=== PATIENT | male | born 1970 | race Hispanic/Latino ===

== ENCOUNTER 2017-02-19 03:59 | Inpatient (IN) | payer BC ==
[2017-02-19 04:00] VITALS: BMI 25.0
--- NOTE | 2017-02-19 05:02 | ED PDOC ---
Arrival/HPI - General Chief Complaint: Psychiatric Evaluation Time Seen by Provider: 02/19/17 04:07 Historian: Patient - History of Present Illness Narrative History of Present Illness (Text): 02/19/17 04:46 Shawn Vega is a 46 year old male, whose past medical history includes hypertension and depression, who presents to the Emergency department brought in by EMS for auditory hallucinations. Patient states for the past 3 weeks he thinks his neighbors have been trying to break in to his apartment. Patient believes this is happening only when he is in the apartment by himself. Patient with tangential thoughts and paranoid behavior. Patient denies any suicidal ideation, homicidal ideation, fever, chills, chest pain, shortness of breath, nausea, vomiting, diarrhea, urinary symptoms, back pain, neck pain, headache, dizziness, or any other complaints. Time/Duration: < month (3 weeks) Symptom Onset: Gradual Symptom Course: Unchanged Activities at Onset: Rest, Light Context: Home Past Medical History - Provider Review Nursing Documentation Reviewed: Yes - Infectious Disease Hx of Infectious Diseases: None - Tetanus Immunization Tetanus Immunization: Up to Date - Past Medical History Past Medical History: No Previous - Cardiac Hx Cardiac Disorders: Yes Hx Hypertension: Yes - Pulmonary Hx Respiratory Disorders: No - Neurological Hx Neurological Disorder: No - HEENT Hx HEENT Disorder: No - Renal Hx Renal Disorder: No - Endocrine/Metabolic Hx Endocrine Disorders: No - Hematological/Oncological Hx Blood Disorders: No - Integumentary Hx Dermatological Disorder: No - Musculoskeletal/Rheumatological Hx Musculoskeletal Disorders: Yes Hx Back Pain: Yes Hx Herniated Disk: Yes (neck /lower back) - Gastrointestinal Hx Gastrointestinal Disorders: No - Genitourinary/Gynecological Hx Genitourinary Disorders: No - Psychiatric Hx Psychophysiologic Disorder: No Hx Anxiety: Yes Hx Depression: Yes Hx Substance Use: No (1 month ago) - Past Surgical History Past Surgical History: No Previous - Surgical History Other/Comment: umbilical hernia repair - Anesthesia Hx Anesthesia: Yes Hx Anesthesia Reactions: No Hx Malignant Hyperthermia: No - Suicidal Assessment Feels Threatened In Home Enviroment: No Family/Social History - Physician Review Nursing Documentation Reviewed: Yes Family/Social History: No Known Family HX Smoking Status: Light Smoker < 10 Cigarettes Daily Hx Alcohol Use: Yes Hx Substance Use: No (1 month ago) Substance used: medical marijuana Hx Substance Use Treatment: No Allergies/Home Meds Allergies/Adverse Reactions: Allergies No Known Allergies Allergy (Verified 02/19/17 04:15) Home Medications: Home Meds Medication Instructions Recorded Confirmed Gabapentin [Neurontin] 400 mg PO TID 02/03/16 07/09/16 Lisinopril [Zestril] 20 mg PO DAILY 02/03/16 07/09/16 Metoprolol Succinate [Toprol XL] 50 mg PO DAILY 02/03/16 07/09/16 Oxycodone HCl/Acetaminophen 1 tab PO QID PRN 02/03/16 02/03/16 [Percocet 10-325 mg Tablet] amLODIPine [Norvasc] 10 mg PO DAILY 02/03/16 07/09/16 tiZANidine [Zanaflex] 4 mg PO HS 02/03/16 02/03/16 Celecoxib [celeBREX] 200 mg PO DAILY 07/09/16 07/09/16 Esomeprazole Magnesium [Nexium] 40 mg PO DAILY 07/09/16 07/09/16 Metoclopramide HCl [Reglan] 5 mg PO ACBHS 07/09/16 07/09/16 Naloxegol Oxalate [Movantik] 25 mg PO DAILY 07/09/16 07/09/16 Oxymorphone HCl [Opana ER] 20 mg PO BID 07/09/16 07/09/16 Review of Systems - Physician Review All systems were reviewed & negative as marked: Yes - Review of Systems Constitutional: Normal. absent: Fevers Eyes: Normal ENT: Normal Respiratory: Normal. absent: SOB, Cough Cardiovascular: Normal. absent: Chest Pain Gastrointestinal: Normal. absent: Abdominal Pain, Diarrhea, Nausea, Vomiting Genitourinary Male: Normal. absent: Dysuria, Frequency, Hematuria, Urinary Output Changes Musculoskeletal: Normal. absent: Back Pain, Neck Pain Skin: Normal. absent: Rash Neurological: Normal. absent: Headache, Dizziness Endocrine: Normal Hemo/Lymphatic: Normal Psychiatric: Other (+paranoid) Physical Exam Vital Signs Reviewed: Yes Vital Signs Temp Pulse Resp BP Pulse Ox 02/19/17 04:15 98.3 F 83 18 155/107 H 99 Temperature: Afebrile Blood Pressure: Normal Pulse: Regular Respiratory Rate: Normal Appearance: Positive for: Well-Appearing, Non-Toxic, Comfortable Pain Distress: None Mental Status: Positive for: Alert and Oriented X 3 - Systems Exam Head: Present: Atraumatic, Normocephalic Pupils: Present: PERRL Extroacular Muscles: Present: EOMI Conjunctiva: Present: Normal Mouth: Present: Moist Mucous Membranes Neck: Present: Normal Range of Motion Respiratory/Chest: Present: Clear to Auscultation, Good Air Exchange. No: Respiratory Distress, Accessory Muscle Use Cardiovascular: Present: Regular Rate and Rhythm, Normal S1, S2. No: Murmurs Abdomen: Present: Normal Bowel Sounds. No: Tenderness, Distention, Peritoneal Signs Back: Present: Normal Inspection Upper Extremity: Present: Normal Inspection. No: Cyanosis, Edema Lower Extremity: Present: Normal Inspection. No: Edema Neurological: Present: GCS=15, CN II-XII Intact, Speech Normal Skin: Present: Warm, Dry, Normal Color. No: Rashes Psychiatric: Present: Alert, Oriented x 3, Normal Insight, Normal Concentration , Other (Tangential thoughts, paranoid) Medical Decision Making ED Course and Treatment: 02/19/17 04:46 Impression: 46 year old male complaining of auditory hallucinations for 3 weeks. Plan: -- EKG -- Chest X-ray -- Labs, alcohol level -- Urinalysis, urine drug screen -- Reassess and disposition Progress Notes: Reviewed EKG, NSR at 77 bpm. LAD. LVH. Non-specific ST changes. 02/19/17 05:22 Reviewed radiology, Chest X-ray shows no active disease. - Lab Interpretations Lab Results: 02/19/17 05:08 02/19/17 05:08 Lab Results 02/19/17 05:08: WBC 6.5 D, RBC 4.79, Hgb 14.0, Hct 41.9 L, MCV 87.5, MCH 29.2, MCHC 33.4, RDW 13.2, Plt Count 214, MPV 10.5, Gran % 75.5 H, Lymph % (Auto) 12.7 L, [place] % (Auto) 9.6 H, Eos % (Auto) 1.7, Baso % (Auto) 0.5, Gran # 4.89, Lymph # 0.8 L, [place] # 0.6, Eos # 0.1, Baso # 0.03, Sodium 146, Potassium 3.7, Chloride 105, Carbon Dioxide 29, Anion Gap 16, BUN 20, Creatinine 0.8, Est GFR ( Amer) > 60, Est GFR (Non-Af Amer) > 60, Random Glucose 97, Calcium 9.4, Total Bilirubin 0.5, AST 41, ALT 40, Alkaline Phosphatase 90, Total Protein 7.8 , Albumin 4.3, Globulin 3.5, Albumin/Globulin Ratio 1.2, Alcohol, Quantitative < 10 I have reviewed the lab results: Yes - RAD Interpretation Radiology Orders: 02/19/17 04:39 CHEST PORTABLE [RAD] Stat - EKG Interpretation Interpreted by ED Physician: Yes Type: 12 lead EKG - Transfer of Care Patient signed out to Dr:: Dung Pending Labs:: Labs/Medical clearance/PES evaluation/final disposition - Scribe Statement The provider has reviewed the documentation as recorded by the [place] Provider Attestation: All medical record entries made by the Mabelibbelen were at my direction and personally dictated by me. I have reviewed the chart and agree that the record accurately reflects my personal performance of the history, physical exam, medical decision making, and the department course for this patient. I have also personally directed, reviewed, and agree with the discharge instructions and disposition. Disposition/Present on Arrival - Present on Arrival Any Indicators Present on Arrival: No History of DVT/PE: No History of Uncontrolled Diabetes: No Urinary Catheter: No History of Decub. Ulcer: No History Surgical Site Infection Following: None - Disposition Have Diagnosis and Disposition been Completed?: No Diagnosis: Hallucinations Disposition Time: 07:00 Condition: STABLE
[2017-02-19 05:10] LABS: ADD MANUAL DIFF? NO
[2017-02-19 05:18] LABS: BASO # 0.03 K/mm3 (0.0-2.0); BASO % 0.5 % (0.0-3.0); EOS # 0.1 (0.0-0.7); EOS % 1.7 % (1.5-5.0); GRAN # 4.89 (1.4-6.5); GRAN % 75.5 % (50.0-68.0); HEMATOCRIT 41.9 % (42.0-52.0); LYMPH # 0.8 (1.2-3.4); LYMPH % 12.7 % (22.0-35.0); MEAN CELL VOLUME 87.5 fL (80.0-105.0); MEAN CORPUSCULAR HEMOGLOBIN 29.2 pg (25.0-35.0); MEAN CORPUSCULAR HGB CONC 33.4 g/dl (31.0-37.0); MEAN PLATELET VOLUME 10.5 fl (7.0-11.0); MONO # 0.6 (0.1-0.6); MONO % 9.6 % (1.0-6.0); PLATELET COUNT 214 10^3/uL (120.0-450.0); RED CELL DISTRIBUTION WIDTH 13.2 % (11.5-14.5); WHITE BLOOD COUNT 6.5 10^3/ul (4.5-11.0)
[2017-02-19 05:35] LABS: ALB/GLOB RATIO 1.2 (1.1-1.8); ALKALINE PHOSPHATASE 90 U/L (38-133); ALT/SGPT 40 U/L (7-56); AST/SGOT 41 U/L (15-59); BILIRUBIN,TOTAL 0.5 mg/dL (0.2-1.3); BLOOD UREA NITROGEN 20 mg/dL (7-21); CALCIUM 9.4 mg/dL (8.4-10.5); CARBON DIOXIDE 29 mmol/L (21-33); CHLORIDE 105 mmol/L (95-110); GFR AFRICAN-AMERICAN > 60; GLUCOSE,RANDOM 97 mg/dL (70-110); POTASSIUM 3.7 mmol/L (3.6-5.0); SODIUM 146 mmol/L (132-148); TOTAL PROTEIN 7.8 g/dL (5.8-8.3)
--- NOTE | 2017-02-19 07:07 | ED PDOC ---
Physical Exam Vital Signs Temp Pulse Resp BP Pulse Ox 02/19/17 09:06 72 16 162/106 H 100 02/19/17 07:37 98 F 78 15 142/82 99 02/19/17 04:15 98.3 F 83 18 155/107 H 99 Temperature: Afebrile Blood Pressure: Hypertensive Pulse: Regular Respiratory Rate: Normal Appearance: Positive for: Well-Appearing, Non-Toxic, Comfortable Pain Distress: None Mental Status: Positive for: Alert and Oriented X 3 - Systems Exam Head: Present: Atraumatic, Normocephalic Extroacular Muscles: Present: EOMI Conjunctiva: Present: Normal Mouth: Present: Moist Mucous Membranes Respiratory/Chest: Present: Clear to Auscultation, Good Air Exchange Cardiovascular: Present: Regular Rate and Rhythm. No: Murmurs Abdomen: No: Tenderness, Distention Neurological: Present: GCS=15, CN II-XII Intact, Speech Normal Psychiatric: Present: Alert, Oriented x 3 Medical Decision Making ED Course and Treatment: 02/19/17 07:00 Patient signed out to me by Dr. Saab pending labs, medical clearance, PES evaluation, and final disposition. 46 year old male presented with auditory hallucinations for the past 3 weeks. Labs reviewed which are grossly normal. Reviewed EKG which was done in prior shift, grossly unchanged from prior EKG in 2015. Still pending UDS and PES evaluation. 02/19/17 08:08 Patient resting comfortably. Pending UA/UDS and PES evaluation 02/19/17 11:38 Patient accepted for psych admission and agreed to voluntary admission - Lab Interpretations Lab Results: 02/19/17 05:08 02/19/17 05:08 Lab Results 02/19/17 08:37: Urine Color Yellow, Urine Appearance Clear, Urine pH 7.5, Ur Specific [place] 1.020, Urine Protein Negative, Urine Glucose (UA) Negative, Urine Ketones 15 H, Urine Blood Negative, Urine Nitrate Negative, Urine Bilirubin Negative, Urine Urobilinogen 0.2, Ur Leukocyte Esterase Negative, Urine Opiates Screen Positive H, Urine Methadone Screen Negative, Ur Barbiturates Screen Negative, Ur Phencyclidine Scrn Negative, Ur Amphetamines Screen Negative, U Benzodiazepines Scrn Negative, U Oth Cocaine Metabols Negative, U Cannabinoids Screen Negative 02/19/17 05:08: WBC 6.5 D, RBC 4.79, Hgb 14.0, Hct 41.9 L, MCV 87.5, MCH 29.2, MCHC 33.4, RDW 13.2, Plt Count 214, MPV 10.5, Gran % 75.5 H, Lymph % (Auto) 12.7 L, [place] % (Auto) 9.6 H, Eos % (Auto) 1.7, Baso % (Auto) 0.5, Gran # 4.89, Lymph # 0.8 L, [place] # 0.6, Eos # 0.1, Baso # 0.03, Sodium 146, Potassium 3.7, Chloride 105, Carbon Dioxide 29, Anion Gap 16, BUN 20, Creatinine 0.8, Est GFR ( Amer) > 60, Est GFR (Non-Af Amer) > 60, Random Glucose 97, Calcium 9.4, Total Bilirubin 0.5, AST 41, ALT 40, Alkaline Phosphatase 90, Total Protein 7.8 , Albumin 4.3, Globulin 3.5, Albumin/Globulin Ratio 1.2, Alcohol, Quantitative < 10 - RAD Interpretation Radiology Orders: 02/19/17 04:39 CHEST PORTABLE [RAD] Stat Disposition/Present on Arrival - Present on Arrival Any Indicators Present on Arrival: No History of DVT/PE: No History of Uncontrolled Diabetes: No Urinary Catheter: No History of Decub. Ulcer: No History Surgical Site Infection Following: None - Disposition Have Diagnosis and Disposition been Completed?: Yes Diagnosis: Hallucinations, Simple schizophrenia Disposition: HOSPITALIZED Disposition Time: 07:00 Patient Plan: Admission Patient Problems: Current Active Problems Problem Status Diagnosed Hallucinations Acute Condition: STABLE
[2017-02-19 08:44] LABS: PH,URINE 7.5 (4.7-8.0); URINE BILIRUBIN NEGATIVE (NEGATIVE); URINE BLOOD NEGATIVE (NEGATIVE); URINE GLUCOSE (UA) NEGATIVE (NEGATIVE); URINE KETONE 15 mg/dL (NEGATIVE); URINE LEUKOCYTE ESTERASE NEGATIVE Leu/uL (NEGATIVE); URINE PROTEIN NEGATIVE mg/dL (<30 mg/dL); URINE UROBILINOGEN 0.2 E.U./dL (<1 E.U./dL)
[2017-02-19 08:45] LABS: URINE APPEARANCE CLEAR (CLEAR); URINE COLOR YELLOW (YELLOW)
--- NOTE | 2017-02-19 08:59 | RAD ---
HISTORY: medical clearance COMPARISON: Comparison is made to the previous study dated 02/03/2016 FINDINGS: LUNGS: No active pulmonary disease. PLEURA: No significant pleural effusion identified, no pneumothorax apparent. CARDIOVASCULAR: Normal. OSSEOUS STRUCTURES: No significant abnormalities. VISUALIZED UPPER ABDOMEN: Normal. OTHER FINDINGS: None. IMPRESSION: No active disease.
[2017-02-19 12:12] VITALS: O2SAT 98
--- NOTE | 2017-02-19 15:42 | CARD ---
APPROVED REPORT EKG Measurement Heart [id number] <Conclusion> Normal sinus rhythm Possible Left atrial enlargement Left axis deviation Left ventricular hypertrophy with QRS widening Abnormal ECG
[2017-02-19] MEDS ORDERED: Alum-Mag Hydrox-Simethicone Susp (30 mL) PO PRN (15:58)
[2017-02-19] MEDS ORDERED: Magnesium Hydroxide Susp 30 ml UD PO PRN (15:58)
[2017-02-20 08:04] LABS: CHOLESTEROL 164 mg/dL (130-200); GLUCOSE,FASTING 111 mg/dL (65-110)
--- NOTE | 2017-02-20 12:59 | CON ---
DATE: 02/20/2017 The patient is a 46-year-old male who came to Emergency Room because he was hearing voices and he was overwhelmed with the thought that his neighbors are trying to break into his apartment and these tho ughts have been disturbing. He was unable to control that. He feels anxious about it, so he came to Emergency Room to get helped. PAST MEDICAL HISTORY: Significant for hypertension, history of depression in the past. ALLERGIES: He is not allergic to any medication. MEDICATIONS: He does not take any at home. SOCIAL HISTORY: He does admit using marijuana here and there. He is a smoker and smokes less than 1 0 cigarettes a day. REVIEW OF SYSTEMS: Significant for feeling anxious. Denies any nausea, vomiting. No history of libby rrhea, no irregular bowel habits. PHYSICAL EXAMINATION: GENERAL: He is awake and alert, communicative. VITAL SIGNS: He is afebrile, pulse 59, respirations 20, blood pressure 149/107. LUNGS: Bilateral good airflow, no rhonchi or crackle. HEART: S1, S2 audible. No murmur. ABDOMEN: Soft, nontender, no rebound, no guarding. NEUROLOGIC: He is awake and alert and able to communicate, ambulatory. ASSESSMENT: 1. Paranoid schizophrenia. 2. History of hypertension. 3. History of anxiety disorder. LABORATORY EXAMINATION: Done in ER shows WBCs 6.5, hemoglobin 14, hematocrit 41, platelets 214. Tena vikas: Sodium 146, potassium 3.7, chloride 105, CO2 29, BUN 20, creatinine 0.8, blood sugar of 97. Urinalysis is unremarkable. His urine tox is positive for opiates. PLAN: We will start him on Norvasc 10 mg daily starting today and his psych medication will be adjus jennifer by the psychiatrist. I will order for thyroid profile in a.m. Kacy Moe MD cc: [phone] TT: 02/20/2017 12:58:32 Confirmation # [id number] Dictation # [id number]
[2017-02-20 13:03] LABS: FREE T4 0.71 ng/dL (0.78-2.19)
[2017-02-20 13:17] LABS: THYROID STIMULATING HORMONE 0.79 mIU/mL (0.46-4.68)
[2017-02-20] MEDS ORDERED: oxyCODONE 30 mg Immediate Release Tab PO PRN (14:01)
[2017-02-20] MEDS: Metoprolol Succinate 50 mg XL Tab PO SCH (14:20)
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
[2017-02-20] MEDS: oxyCODONE 30 mg Immediate Release Tab PO SCH (17:34)
--- NOTE | 2017-02-20 18:52 | CON ---
DATE: 02/20/2017 CHIEF COMPLAINT: Evaluation for psychosis. HISTORY OF PRESENT ILLNESS: A 46-year-old man with past medical history of hypertension, depression, history of chronic pain on opiates in the past, who came to the hospital for hearing voices and was overwhelmed with the thought that his neighbors are trying to break into his apartment. Therefore, b y having these thoughts, he was brought to the hospital and was feeling anxious about it, therefore i s in the psychiatric unit for ____voluntary admission and was asked to evaluate for neurological poss ibility of a psychosis. Currently, he mentions he has chronic low back and neck pain. He is on felicia riptyline 25 mg at night which was started in 10/2016. He denies any paresthesias in the extremities . He is sleeping without any difficulties, moving all extremities equally. No headaches. No change in sense of vision, taste or smell. No family history of any neurological inherited disorders. He has poor cognitive impairment and his affect is flat. PAST MEDICAL HISTORY: History of hypertension, depression. ALLERGIES: No known drug allergies. MEDICATIONS: Reviewed via nurse's reconciliation sheet. SOCIAL HISTORY: Admits to smoking marijuana here and there. He is a smoker, smokes less than 10 cig arettes per day. No ETOH abuse. REVIEW OF SYSTEMS: 14-point review of systems for the HPI. ALLERGIES: No known drug allergies. FAMILY HISTORY: Noncontributory. PHYSICAL EXAMINATION: VITAL SIGNS: Temperature 98.2, pulse rate 65, blood pressure 133/90, respiratory rate 20. GENERAL: The patient is lying in bed in no acute distress. HEENT: Atraumatic, normocephalic. PERRLA. Extraocular muscles intact. NECK: Supple, no JVD, no adenopathy noted. LUNGS: Clear to auscultation. No adventitious sounds. HEART: S1, S2, normal rate and rhythm. No murmurs, rubs, or gallops. ABDOMEN: Soft, nontender, nondistended. Bowel sounds present. EXTREMITIES: No clubbing, no cyanosis. Peripheral pulses 2+ felt bilaterally. NEUROLOGIC: The patient has a flat affect, alert, oriented to person, place, month and year. Speech is pressured. His thought process has loose associations. Speech is fluent, without any errors. C ranial nerves II-XII are intact. MOTOR: Slight increased tone throughout. Moves all extremities equally. No prior pronator drift se en. DTRs 2+ throughout. SENSORY: Light touch, pinprick, proprioception, vibration. DTRs are 2+ throughout. COORDINATION: Ohvqms-fj-rsct intact. GAIT: Deferred for now. LABORATORY DATA: U-tox is positive for opiates. Sodium is 146, potassium 3.7, chloride 105, carbon dioxide 29, BUN of 20, creatinine 0.8 and random glucose of 97. ASSESSMENT AND PLAN: This is a 17-[id number]-fsa-male with history of hypertension, history of chronic nec k and lumbar pain and depression, on opiates for pain management who comes in with hearing voices, mo re of an acute psychosis. I feel like his psychosis related to mostly overuse of opiates and possibl e withdrawal. I do not feel like, based on his neuro exam, there is anything neurologic in nature. He had a CT scan 2 years ago in 2013, it showed no acute intracranial abnormality. At this time, I r ecommend to continue with psychiatric management and avoid overuse of opiates. Should start him on n europathic agent such as Cymbalta, which will help with his pain instead. At this time, continue wit h current present medical management. Thank you for this consult. Rudy Mccormick MD cc: [id number] TT: 02/20/2017 18:51:40 Confirmation # [id number] Dictation # [id number] [email or web address]
[2017-02-21] MEDS: Metoprolol Succinate 50 mg XL Tab PO SCH (08:00)
[2017-02-21] MEDS: oxyCODONE 30 mg Immediate Release Tab PO SCH ×2 (08:00→17:14)
--- NOTE | 2017-02-21 09:03 | PCM.PYCHPN ---
Psychiatric Progress Note - Psychiatric Progress Note Patient seen today, length of contact: 25 min Patient Chief Complaint: better Problems Identified/Issues Discussed: I reviewed assessment a recent notes. Patient was interviewed at bedside. Patient is superficially cooperative. He denies any new concerns and indicates that he is feeling better. Sleep is stable. Affect is superficial and a little guarded. He doesn't appear overly paranoid or hyper vigilant. Verbal communication is minimal the patient's responses are relevant questioning and generally consistent. He denies hallucinations or thoughts to harm himself or others. Presently patient denies any discomfort or pain and has been tolerating his medications Staff notes do not indicate any behavioral issues overnight Diagnostic Results: psychosis nos r/o medication induced psychosis (amitryptyline could cause hallucinations and psychosis exacerbation, hypomania and mary kay) r/o substance induced psychosis (pt was on medical marijuana) Medication Change: No Medical Record Reviewed: Yes (notes, vitals, labs, reports) Mental Status Examination - Cognitive Function Orientation: Person, Place Attention: WNL Concentration: Poor - Mood Mood: Depressed (better) - Affect Affect: Constricted, Flat - Formal Thought Process Formal Thought Process: Hallucinations (denies today thus far), Delusions (none elicited today), Paranoia, Loosening of associations, Neologism - Suicidal Ideation Suicidal Ideation: No - Homicidal Ideation Homicidal Ideation: No Goal/Treatment Plan - Goal/Treatment Plan Progress Toward Problem(s) and Goals/Treatment Plan: * c/w current tx and plan * No new weekend labs * Vitals reviewed and noted below: Selected Entries 02/20/17 02/20/17 06:00 16:38 Temperature 98.2 F Pulse Rate 59 L 65 Respiratory 20 Rate Blood Pressure 149/107 H 133/90
--- NOTE | 2017-02-21 18:22 | PN ---
DATE: 02/21/2017 SUBJECTIVE: The patient is a 46-year-old seen and examined, lying in bed. He states he is having so me back pain tossing and turning. 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 He states he slept well last night. PHYSICAL EXAMINATION: VITAL SIGNS: He is afebrile, pulse 86, respirations 17, blood pressure 126/84. LUNGS: Bilateral fair airflow, no rhonchi or crackle. HEART: S1, S2 audible. ABDOMEN: Soft, nontender, no rebound, no guarding. NEUROLOGIC: He is awake and alert, communicative. ASSESSMENT AND PLAN: 1. Opiate abuse. 2. Schizophrenia. 3. Hypertension. 4. Chronic back pain. PLAN: The patient's blood pressure seems to be controlled with current medication and will continue that and alert anti-inflammatory, give him Naprosyn to better control his back pain and reevaluate th e patient in a.m. Kacy Moe MD cc: [phone] TT: 02/21/2017 18:22:39 Confirmation # [id number] Dictation # [id number] mn
[2017-02-22] MEDS: oxyCODONE 30 mg Immediate Release Tab PO SCH ×2 (08:29→17:45)
[2017-02-22] MEDS: Metoprolol Succinate 50 mg XL Tab PO SCH (09:00)
--- NOTE | 2017-02-22 09:06 | PCM.PYCHPN ---
Psychiatric Progress Note - Psychiatric Progress Note Patient seen today, length of contact: 25 min Patient Chief Complaint: better Problems Identified/Issues Discussed: I reviewed recent notes and met with patient at bedside. Patient is superficially cooperative. He denies any new concerns and indicates that he is feeling better "I want to continue on" Feels the medications "are helping I guess". Sleep is "okay". Affect is still superficial and a little guarded. He doesn't appear overly paranoid or hypervigilant during my visit. Verbal communication is minimal and the patient's responses are relevant to questioning and generally consistent. He still denies hallucinations or thoughts to harm himself or others. Presently patient denies any discomfort or pain and has been tolerating his medications Staff notes do not indicate any behavioral issues over the weekend however patient can be labile and evasive. Diagnostic Results: psychosis nos r/o medication induced psychosis (amitryptyline could cause hallucinations and psychosis exacerbation, hypomania and mary kay) r/o substance induced psychosis (pt was on medical marijuana) Medication Change: No Medical Record Reviewed: Yes (notes, vitals, labs, reports) Mental Status Examination - Cognitive Function Orientation: Person, Place Attention: WNL Concentration: Poor - Mood Mood: Depressed (feeling better "I want to continue on") - Affect Affect: Constricted (superficial and a little guarded. ), Flat - Formal Thought Process Formal Thought Process: Hallucinations (denies this weekend), Delusions (none elicited this weekend), Paranoia, Loosening of associations, Neologism - Suicidal Ideation Suicidal Ideation: No - Homicidal Ideation Homicidal Ideation: No Goal/Treatment Plan - Goal/Treatment Plan Progress Toward Problem(s) and Goals/Treatment Plan: * c/w current tx and plan * Appreciate f/u by Dr. Moe on 02/21/17~started Naprosyn for back pain * No new weekend labs * Vitals reviewed and noted below: Selected Entries 02/22/17 02/22/17 02/22/17 07:37 08:29 08:31 Temperature 97.3 F L Pulse Rate 63 63 63 Respiratory 20 Rate Blood Pressure 122/90 122/90 122/90
[2017-02-22] MEDS: oxyCODONE 30 mg Immediate Release Tab PO PRN (13:13)
--- NOTE | 2017-02-22 17:55 | PN ---
DATE: 02/22/2017 SUBJECTIVE: The patient is a 46-year-old seen and examined, ambulatory. Complained of back pain, se ems to be a more interactive. PHYSICAL EXAMINATION: VITAL SIGNS: He is afebrile, pulse 63, respirations 20, blood pressure 122/90. LUNGS: Bilateral fair airflow, no rhonchi or crackle. HEART: S1, S2 audible. No murmur. ABDOMEN: Soft, nontender, no rebound, no guarding. NEUROLOGIC: The patient is awake and alert, communicative, ambulatory. ASSESSMENT AND PLAN: 1. Schizophrenia with depressive features. 2. Chronic degenerative disk disease. 3. Anxiety disorder. 4. Marijuana abuse since urine drug screen is positive for opiates. PLAN: Currently, the patient is on analgesic as needed. He is getting Risperdal. He is on amlodipi ne. Possible discharge plan in a.m. Kacy Moe MD cc: [phone] TT: 02/22/2017 17:54:51 Confirmation # [id number] Dictation # [id number] mn
[2017-02-23] MEDS: Metoprolol Succinate 50 mg XL Tab PO SCH (08:23)
[2017-02-23] MEDS: oxyCODONE 30 mg Immediate Release Tab PO SCH ×2 (08:24→17:30)
--- NOTE | 2017-02-23 13:16 | PCM.PYCHPN ---
Psychiatric Progress Note - Psychiatric Progress Note Patient seen today, length of contact: 30 minutes Patient Chief Complaint: "I do want to give up my marijuana, I need to be on painkillers" Problems Identified/Issues Discussed: Suicide/ homicide prevention, past psychiatric h/o, current psychiatric symptoms , medical problems, risk/benefits and alternatives of medications, medications compliance, coping strategies, substance abuse h/o, relapse prevention, importance of follow up with psychiatrist and therapist, discharge plan. Medical Problems: Hypertension Herniated disc in the back Diagnostic Results: 02/19/17 05:08 02/19/17 05:08 Lab Results 02/20/17 08:00: Free T4 0.71 L, TSH 3rd Generation 0.79 02/20/17 07:00: Fasting Glucose 111 H, Triglycerides 64, Cholesterol 164, LDL Cholesterol Direct 90, HDL Cholesterol 48 02/19/17 08:37: Urine Color Yellow, Urine Appearance Clear, Urine pH 7.5, Ur Specific [place] 1.020, Urine Protein Negative, Urine Glucose (UA) Negative, Urine Ketones 15 H, Urine Blood Negative, Urine Nitrate Negative, Urine Bilirubin Negative, Urine Urobilinogen 0.2, Ur Leukocyte Esterase Negative, Urine Opiates Screen Positive H, Urine Methadone Screen Negative, Ur Barbiturates Screen Negative, Ur Phencyclidine Scrn Negative, Ur Amphetamines Screen Negative, U Benzodiazepines Scrn Negative, U Oth Cocaine Metabols Negative, U Cannabinoids Screen Negative 02/19/17 05:08: WBC 6.5 D, RBC 4.79, Hgb 14.0, Hct 41.9 L, MCV 87.5, MCH 29.2, MCHC 33.4, RDW 13.2, Plt Count 214, MPV 10.5, Gran % 75.5 H, Lymph % (Auto) 12.7 L, Leon % (Auto) 9.6 H, Eos % (Auto) 1.7, Baso % (Auto) 0.5, Gran # 4.89, Lymph # 0.8 L, Leon # 0.6, Eos # 0.1, Baso # 0.03, Sodium 146, Potassium 3.7, Chloride 105, Carbon Dioxide 29, Anion Gap 16, BUN 20, Creatinine 0.8, Est GFR ( Amer) > 60, Est GFR (Non-Af Amer) > 60, Random Glucose 97, Calcium 9.4, Total Bilirubin 0.5, AST 41, ALT 40, Alkaline Phosphatase 90, Total Protein 7.8 , Albumin 4.3, Globulin 3.5, Albumin/Globulin Ratio 1.2, Alcohol, Quantitative < 10 Vital Signs Temp Pulse Resp BP Pulse Ox 02/23/17 08:25 52 L 128/85 02/23/17 08:24 52 L 128/85 02/23/17 08:23 52 L 128/85 02/23/17 07:49 97.4 F L 52 L 20 128/85 02/22/17 18:34 55 L 90/54 L 02/22/17 09:00 63 122/90 02/22/17 08:31 63 122/90 02/22/17 08:29 63 122/90 02/22/17 07:37 97.3 F L 63 20 122/90 02/21/17 16:32 87 126/84 02/21/17 08:54 97.3 F L 86 17 136/94 H 02/21/17 08:00 86 136/94 H 02/20/17 16:38 65 133/90 02/20/17 06:00 98.2 F 59 L 20 149/107 H 02/19/17 16:41 60 132/97 H 02/19/17 12:27 146/89 02/19/17 12:00 58 L 16 142/101 H 98 02/19/17 09:06 72 16 162/106 H 100 02/19/17 07:37 98 F 78 15 142/82 99 02/19/17 04:15 98.3 F 83 18 155/[address] of head was done 2 years ago, no changes DSM 5 Symptoms Update: shortly pt is 46yo male with not known previous psychiatric h/o, possible h/o PTSD, denied previous history of admissions into the psychiatric inpatient unit , denied history of suicidal attempts, patient lives with his mother in [place] , works in the post office, 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 for help for his psychotic symptoms, patient was feeling that people are after him, police is chasing him, also patient was hearing whispers, was not able to function, needs further evaluation and stabilization and medication initiation or titration Patient was seen today at the morning time at the treatment team meeting room, patient presented to have fair personal hygiene, good ADLs, more relaxed, talkative, still paranoid with some improvement, pt said "I am not sure, may be my neighbours are fine, but I felt overprotective of my mother", pt also said that he and his mother are going to move to the new apartment. pt's thought process are circumstantial, pt has overproductive speech, pt seems to be responding to internal stimuli, was laughing inappropriately. Mother was contacted by SW, as per mother pt was hallucinating for about a month prior to come to the hospital, pt was laying on the floor listening of neighbours, had impression that somebody is banging on door. as per mother it could be due to a pain killers. pt did not verbalizing thoughts of killing himself or others, patient was able to keep his job, but struggling at home. patient was educated about diagnosis, patient does not want to give up his painkillers, does not want to give up his medical marijuana, patient was educated about potential side effects from Elavil what he was started about a month ago, this business writer recommended not to take this medication anymore. Pt tolerates meds well, no side effects observed or reported, AIMS 0, no EPS. DSM 5 Diagnosis: psychosis nos r/o medication induced psychosis (amitryptyline could cause hallucinations and psychosis exacerbation, hypomania and mary kay) r/o substance induced psychosis (pt was on medical marijuana, pain killers) Medication Change: Yes (Risperdal increased ) Medical Record Reviewed: Yes (notes, vitals, labs, reports) Consults ordered or reviewed: Medical consult appreciated Neurology consult appreciated see notes for more detailed information Mental Status Examination - Cognitive Function Orientation: Person, Place Attention: WNL Concentration: Poor Association: Loose Fund of Knowledge: WNL - Mood Mood: Depressed ("I feel little better") - Affect Affect: Constricted (at times pt was laughing inapropriately), Flat - Formal Thought Process Formal Thought Process: Hallucinations (denies this weekend), Delusions (none elicited this weekend), Paranoia, Loosening of associations, Neologism - Suicidal Ideation Suicidal Ideation: No - Homicidal Ideation Homicidal Ideation: No Goal/Treatment Plan - Goal/Treatment Plan Need for Continued Stay: Remain at risks for inpatient hospitalization, Severe depression anxiety, Discharge may exacerbated symptoms, Severe functional impairment Progress Toward Problem(s) and Goals/Treatment Plan: milieu, structure, supportive therapy We'll discontinue amitriptyline Increase Risperdal 1mg po twice a day for psychosis as well as for mood stabilization Trazodone at the nighttime for insomnia and depressive symptoms We will resume metoprolol and Norvasc lisinopril which were confirmed by patient 's pharmacy Oxycodone 30 mg twice a day which was confirmed by patient's pharmacy 30 mg as needed for pain (pt was on 30 mg 4 times a day prescribed by Dr. Beckwith filled in January 29) neurology consult appreciated collateral info appreciated (mother) All medications were confirmed Risk benefits alternatives of all of the medications were explained to the patient Social work evaluation We'll monitor closely pt submitted 48hr notice yesterday Estimated Date of D/C: 02/25/17 (will monitor closely)
--- NOTE | 2017-02-23 13:16 | PN ---
DATE: 02/23/2017 The patient is a 46-year-old, seen and examined. Ambulatory. He thinks he is going home. No chest pain, no shortness of breath. No nausea or vomiting. Complained of back pain; on oxycodone for that . PHYSICAL EXAMINATION: VITAL SIGNS: He is afebrile, pulse 52, respirations 20, blood pressure 128/85. LUNGS: Bilateral fair airflow, no rhonchi or crackle. HEART: S1, S2 audible. ABDOMEN: Soft, nontender, no rebound, no guarding. NEUROLOGIC: He has lower back pain and he states he takes medical marijuana for that. NEUROLOGIC: He is awake and alert, ambulatory. ASSESSMENT AND PLAN: 1. Question of schizophrenia. Could be secondary to polysubstance abuse. 2. Hypertension. 3. Hyperlipidemia. 4. Hallucination, probably secondary to medical marijuana along with his psychiatric medication. PLAN: The patient, from medical point of view, is doing well. He will continue on current medical t reatment. He can be discharged when he is stable from psych point of view. Kacy Moe MD cc: [phone] TT: 02/23/2017 13:16:19 Confirmation # [id number] Dictation # [id number] [email or web address]
[2017-02-23] MEDS: oxyCODONE 30 mg Immediate Release Tab PO PRN (21:37)
[2017-02-24] MEDS: Metoprolol Succinate 50 mg XL Tab PO SCH (08:32)
[2017-02-24] MEDS: oxyCODONE 30 mg Immediate Release Tab PO SCH ×2 (08:33→17:21)
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
--- NOTE | 2017-02-25 01:10 | PN ---
DATE: 02/24/2017 SUBJECTIVE: The patient is a 46-year-old seen and examined, seems to be sleepy, but arousable, is se en in the dayroom, falls asleep after having small conversation and does complain of lower back pain. 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 PHYSICAL EXAMINATION: GENERAL: Today, he is sleepy, but arousable. VITAL SIGNS: He is afebrile, pulse 66, respirations 18, blood pressure 122/84. LUNGS: Bilateral good airflow, no rhonchi or crackle. HEART: S1, S . No murmur. ABDOMEN: Soft, nontender, no rebound, no guarding. NEUROLOGIC: He is awake and alert, communicative, ambulatory. ASSESSMENT: 1. Chronic low back pain. 2. History of left radiculopathy. 3. Hypertension. 4. Anxiety disorder. PLAN: Currently, the patient is on amlodipine, he is getting Paxil and metoprolol. He is also recei ving Restoril. He is on oxycodone and psych medication is being adjusted by psychiatrist. Kacy Moe MD cc: [phone] TT: 02/25/2017 01:09:49 Confirmation # [id number] Dictation # [id number] mn
[2017-02-25 07:24] VITALS: RESP 20
[2017-02-25] MEDS: oxyCODONE 30 mg Immediate Release Tab PO SCH ×2 (08:48→17:40)
[2017-02-25] MEDS: Metoprolol Succinate 50 mg XL Tab PO SCH (08:49)
--- NOTE | 2017-02-25 13:03 | PN ---
DATE: 02/25/2017 The patient is a 46-year-old, seen and examined, ambulatory, not in any distress. He states he feels a lot better. Complaining of back pain. Otherwise, no significant complaints. PHYSICAL EXAMINATION: VITAL SIGNS: He is afebrile, pulse 55, respirations 20, blood pressure 131/95. LUNGS: Bilateral fair airflow, no rhonchi or crackle. HEART: S1, S2 audible, no murmur. ABDOMEN: Soft, nontender, no rebound, no guarding. NEUROLOGIC: He is awake and alert, communicative, ambulatory. ASSESSMENT: 1. Hypertension. 2. Lumbosacral radiculopathy. 3. Chronic back pain. PLAN: At this point, medical treatment is appropriate. We will continue that. We will reevaluate p atient in a.m. Kacy Moe MD cc: [phone] TT: 02/25/2017 13:02:37 Confirmation # [id number] Dictation # [id number] reji
--- NOTE | 2017-02-25 16:11 | PCM.PYCHPN ---
Psychiatric Progress Note - Psychiatric Progress Note Patient seen today, length of contact: 30 minutes Patient Chief Complaint: "I feel little better," Problems Identified/Issues Discussed: Suicide/ homicide prevention, past psychiatric h/o, current psychiatric symptoms , medical problems, risk/benefits and alternatives of medications, medications compliance, coping strategies, substance abuse h/o, relapse prevention, importance of follow up with psychiatrist and therapist, discharge plan. Medical Problems: Hypertension Herniated disc in the back Diagnostic Results: 02/19/17 05:08 02/19/17 05:08 Lab Results 02/20/17 08:00: Free T4 0.71 L, TSH 3rd Generation 0.79 02/20/17 07:00: Fasting Glucose 111 H, Triglycerides 64, Cholesterol 164, LDL Cholesterol Direct 90, HDL Cholesterol 48 02/19/17 08:37: Urine Color Yellow, Urine Appearance Clear, Urine pH 7.5, Ur Specific [place] 1.020, Urine Protein Negative, Urine Glucose (UA) Negative, Urine Ketones 15 H, Urine Blood Negative, Urine Nitrate Negative, Urine Bilirubin Negative, Urine Urobilinogen 0.2, Ur Leukocyte Esterase Negative, Urine Opiates Screen Positive H, Urine Methadone Screen Negative, Ur Barbiturates Screen Negative, Ur Phencyclidine Scrn Negative, Ur Amphetamines Screen Negative, U Benzodiazepines Scrn Negative, U Oth Cocaine Metabols Negative, U Cannabinoids Screen Negative 02/19/17 05:08: WBC 6.5 D, RBC 4.79, Hgb 14.0, Hct 41.9 L, MCV 87.5, MCH 29.2, MCHC 33.4, RDW 13.2, Plt Count 214, MPV 10.5, Gran % 75.5 H, Lymph % (Auto) 12.7 L, [place] % (Auto) 9.6 H, Eos % (Auto) 1.7, Baso % (Auto) 0.5, Gran # 4.89, Lymph # 0.8 L, [place] # 0.6, Eos # 0.1, Baso # 0.03, Sodium 146, Potassium 3.7, Chloride 105, Carbon Dioxide 29, Anion Gap 16, BUN 20, Creatinine 0.8, Est GFR ( Amer) > 60, Est GFR (Non-Af Amer) > 60, Random Glucose 97, Calcium 9.4, Total Bilirubin 0.5, AST 41, ALT 40, Alkaline Phosphatase 90, Total Protein 7.8 , Albumin 4.3, Globulin 3.5, Albumin/Globulin Ratio 1.2, Alcohol, Quantitative < 10 Vital Signs Temp Pulse Resp BP Pulse Ox 02/23/17 08:25 52 L 128/85 02/23/17 08:24 52 L 128/85 02/23/17 08:23 52 L 128/85 02/23/17 07:49 97.4 F L 52 L 20 128/85 02/22/17 18:34 55 L 90/54 L 02/22/17 09:00 63 122/90 02/22/17 08:31 63 122/90 02/22/17 08:29 63 122/90 02/22/17 07:37 97.3 F L 63 20 122/90 02/21/17 16:32 87 126/84 02/21/17 08:54 97.3 F L 86 17 136/94 H 02/21/17 08:00 86 136/94 H 02/20/17 16:38 65 133/90 02/20/17 06:00 98.2 F 59 L 20 149/107 H 02/19/17 16:41 60 132/97 H 02/19/17 12:27 146/89 02/19/17 12:00 58 L 16 142/101 H 98 02/19/17 09:06 72 16 162/106 H 100 02/19/17 07:37 98 F 78 15 142/82 99 02/19/17 04:15 98.3 F 83 18 155/[address] of head was done 2 years ago, no changes Temp Pulse Resp BP Pulse Ox 98.1 F 50 L 18 130/89 98 02/24/17 06:58 02/24/17 08:33 02/24/17 06:58 02/24/17 08:33 02/19/17 12:00 patient brought in a lot of results of most recent MRIs and x-rays of his spine MRI of the cervical spine without contrast dated service is 01/19/2017Impression : C3-C4, 2 mm broad based central disc herniation C4-C5 3 mm central disc herniation C5-C6, 3 mm broad based left paracentral disc herniation C6-C7, 4 millimeters broad based left our essentialforaminal disc herniation Straightening of cervical lordosis, correlate clinically for muscle spasm or muscle strain DSM 5 Symptoms Update: shortly pt is 46yo male with not known previous psychiatric h/o, possible h/o PTSD, denied previous history of admissions into the psychiatric inpatient unit , denied history of suicidal attempts, patient lives with his mother in [place] , works in the post office, 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 Patient also had flight of ideas, difficult to stay focused during the conversation. Patient mother contacted this procedure writer reported that patient was more psychotic for the past month,, patient was hearing some noises, was calling police, patient mother didn't hear any noises weren't knocking on the door. patient mother calms visit patient on daily basis and reported that there is some positive changes in patient presentation, appreciated. patient seems to be more relaxed, less anxious. Pt tolerates meds well, no side effects observed or reported, AIMS 0, no EPS. DSM 5 Diagnosis: psychosis nos r/o medication induced psychosis (amitryptyline could cause hallucinations and psychosis exacerbation, hypomania and mary kay) r/o substance induced psychosis (pt was on medical marijuana, pain killers) rule out PTSD Medication Change: Yes (Risperdal increased) Medical Record Reviewed: Yes (notes, vitals, labs, reports) Consults ordered or reviewed: Medical consult appreciated Neurology consult appreciated see notes for more detailed information pain mng consult called Mental Status Examination - Cognitive Function Orientation: Person, Place Attention: WNL Concentration: Poor (some improvement) Association: Loose (some improvement) Fund of Knowledge: WNL - Mood Mood: Depressed ("I feel little better") - Affect Affect: Constricted (more reactive today) - Speech Speech: Appropriate (overproductive) - Formal Thought Process Formal Thought Process: Hallucinations (denied today), Delusions (nnot elicited today), Paranoia, Loosening of associations, Circumstantial - Suicidal Ideation Suicidal Ideation: No - Homicidal Ideation Homicidal Ideation: No Goal/Treatment Plan - Goal/Treatment Plan Need for Continued Stay: Remain at risks for inpatient hospitalization, Severe depression anxiety, Discharge may exacerbated symptoms, Severe functional impairment Progress Toward Problem(s) and Goals/Treatment Plan: milieu, structure, supportive therapy We'll discontinue amitriptyline Increase Risperdal 2mg poam and 2mg hs for psychosis as well as for mood stabilization will start paxil 20mg hs for depression, ptsd, ocd Trazodone at the nighttime for insomnia and depressive symptoms We will resume metoprolol and Norvasc lisinopril which were confirmed by patient 's pharmacy Oxycodone 30 mg twice a day which was confirmed by patient's pharmacy 30 mg as needed for pain (pt was on 30 mg 4 times a day prescribed by Dr. Beckwith filled in January 29) neurology consult appreciated collateral info appreciated (mother) All medications were confirmed Risk benefits alternatives of all of the medications were explained to the patient Social work evaluation We'll monitor closely pt submitted 48hr notice yesterday, rescinded today Estimated Date of D/C: 02/25/17 (will monitor closely)
[2017-02-26 06:58] VITALS: TEMP 97.6
[2017-02-26] MEDS: oxyCODONE 30 mg Immediate Release Tab PO SCH ×2 (09:54→17:13)
[2017-02-26] MEDS: Metoprolol Succinate 50 mg XL Tab PO SCH (09:55)
--- NOTE | 2017-02-26 13:13 | PN ---
DATE: 02/26/2017 SUBJECTIVE: The patient is a 46-year-old, seen and examined, ambulatory, not in any distress. Doing much better. PHYSICAL EXAMINATION: VITAL SIGNS: The patient is afebrile, pulse 60, respirations 20, blood pressure 133/80. LUNGS: Bilateral good airflow, no rhonchi or crackle. HEART: S1, S2 audible. No murmur. ABDOMEN: Soft, nontender, no rebound, no guarding. NEUROLOGIC: He is awake and alert, communicative, ambulatory. ASSESSMENT AND PLAN: 1. Hypertension, stable. 2. Chronic back pain, he is stable on current analgesic regimen. 3. Paranoid schizophrenia. 4. Anxiety disorder. Psych medication will be adjusted by psychiatrist. Otherwise, medically he is stable. Kacy Moe MD cc: [phone] TT: 02/26/2017 13:13:12 Confirmation # [id number] Dictation # [id number] reji
--- NOTE | 2017-02-26 15:00 | PCM.PYCHPN ---
Psychiatric Progress Note - Psychiatric Progress Note Patient seen today, length of contact: 30 minutes Patient Chief Complaint: "I feel little better," Problems Identified/Issues Discussed: Suicide/ homicide prevention, past psychiatric h/o, current psychiatric symptoms , medical problems, risk/benefits and alternatives of medications, medications compliance, coping strategies, substance abuse h/o, relapse prevention, importance of follow up with psychiatrist and therapist, discharge plan. Medical Problems: Hypertension Herniated disc in the back Diagnostic Results: 02/19/17 05:08 02/19/17 05:08 Lab Results 02/20/17 08:00: Free T4 0.71 L, TSH 3rd Generation 0.79 02/20/17 07:00: Fasting Glucose 111 H, Triglycerides 64, Cholesterol 164, LDL Cholesterol Direct 90, HDL Cholesterol 48 02/19/17 08:37: Urine Color Yellow, Urine Appearance Clear, Urine pH 7.5, Ur Specific [place] 1.020, Urine Protein Negative, Urine Glucose (UA) Negative, Urine Ketones 15 H, Urine Blood Negative, Urine Nitrate Negative, Urine Bilirubin Negative, Urine Urobilinogen 0.2, Ur Leukocyte Esterase Negative, Urine Opiates Screen Positive H, Urine Methadone Screen Negative, Ur Barbiturates Screen Negative, Ur Phencyclidine Scrn Negative, Ur Amphetamines Screen Negative, U Benzodiazepines Scrn Negative, U Oth Cocaine Metabols Negative, U Cannabinoids Screen Negative 02/19/17 05:08: WBC 6.5 D, RBC 4.79, Hgb 14.0, Hct 41.9 L, MCV 87.5, MCH 29.2, MCHC 33.4, RDW 13.2, Plt Count 214, MPV 10.5, Gran % 75.5 H, Lymph % (Auto) 12.7 L, [place] % (Auto) 9.6 H, Eos % (Auto) 1.7, Baso % (Auto) 0.5, Gran # 4.89, Lymph # 0.8 L, [place] # 0.6, Eos # 0.1, Baso # 0.03, Sodium 146, Potassium 3.7, Chloride 105, Carbon Dioxide 29, Anion Gap 16, BUN 20, Creatinine 0.8, Est GFR ( Amer) > 60, Est GFR (Non-Af Amer) > 60, Random Glucose 97, Calcium 9.4, Total Bilirubin 0.5, AST 41, ALT 40, Alkaline Phosphatase 90, Total Protein 7.8 , Albumin 4.3, Globulin 3.5, Albumin/Globulin Ratio 1.2, Alcohol, Quantitative < 10 Vital Signs Temp Pulse Resp BP Pulse Ox 02/23/17 08:25 52 L 128/85 02/23/17 08:24 52 L 128/85 02/23/17 08:23 52 L 128/85 02/23/17 07:49 97.4 F L 52 L 20 128/85 02/22/17 18:34 55 L 90/54 L 02/22/17 09:00 63 122/90 02/22/17 08:31 63 122/90 02/22/17 08:29 63 122/90 02/22/17 07:37 97.3 F L 63 20 122/90 02/21/17 16:32 87 126/84 02/21/17 08:54 97.3 F L 86 17 136/94 H 02/21/17 08:00 86 136/94 H 02/20/17 16:38 65 133/90 02/20/17 06:00 98.2 F 59 L 20 149/107 H 02/19/17 16:41 60 132/97 H 02/19/17 12:27 146/89 02/19/17 12:00 58 L 16 142/101 H 98 02/19/17 09:06 72 16 162/106 H 100 02/19/17 07:37 98 F 78 15 142/82 99 02/19/17 04:15 98.3 F 83 18 155/[address] of head was done 2 years ago, no changes Temp Pulse Resp BP Pulse Ox 98.1 F 50 L 18 130/89 98 02/24/17 06:58 02/24/17 08:33 02/24/17 06:58 02/24/17 08:33 02/19/17 12:00 patient brought in a lot of results of most recent MRIs and x-rays of his spine MRI of the cervical spine without contrast dated service is 01/19/2017Impression : C3-C4, 2 mm broad based central disc herniation C4-C5 3 mm central disc herniation C5-C6, 3 mm broad based left paracentral disc herniation C6-C7, 4 millimeters broad based left our essentialforaminal disc herniation Straightening of cervical lordosis, correlate clinically for muscle spasm or muscle strain DSM 5 Symptoms Update: shortly pt is 46yo male with not known previous psychiatric h/o, possible h/o PTSD, denied previous history of admissions into the psychiatric inpatient unit , denied history of suicidal attempts, patient lives with his mother in [place] , works in the post office, 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 pt was educated about psychosis, advised not to take elavil or medical marijuana , pt was also educated about pain meds and take them as prescribed. pt was receptive. patient seems to be more relaxed, less anxious. Pt tolerates meds well, no side effects observed or reported, AIMS 0, no EPS. DSM 5 Diagnosis: psychosis nos r/o medication induced psychosis (amitryptyline could cause hallucinations and psychosis exacerbation, hypomania and mary kay) r/o substance induced psychosis (pt was on medical marijuana, pain killers) rule out PTSD Medication Change: No (pt was groggy) Medical Record Reviewed: Yes (notes, vitals, labs, reports) Consults ordered or reviewed: Medical consult appreciated Neurology consult appreciated see notes for more detailed information pain mng consult called Mental Status Examination - Cognitive Function Orientation: Person, Place Attention: WNL Concentration: Poor (some improvement) Association: Loose (some improvement) Fund of Knowledge: WNL - Mood Mood: Depressed ("I feel little better") - Affect Affect: Constricted (more reactive today) - Speech Speech: Appropriate (overproductive) - Formal Thought Process Formal Thought Process: Hallucinations (denied today), Delusions (nnot elicited today), Paranoia, Loosening of associations, Circumstantial - Suicidal Ideation Suicidal Ideation: No - Homicidal Ideation Homicidal Ideation: No Goal/Treatment Plan - Goal/Treatment Plan Need for Continued Stay: Remain at risks for inpatient hospitalization, Severe depression anxiety, Discharge may exacerbated symptoms, Severe functional impairment Progress Toward Problem(s) and Goals/Treatment Plan: milieu, structure, supportive therapy We'll discontinue amitriptyline Increase Risperdal 2mg poam and 2mg hs for psychosis as well as for mood stabilization will start paxil 20mg hs for depression, ptsd, ocd Trazodone at the nighttime for insomnia and depressive symptoms We will resume metoprolol and Norvasc lisinopril which were confirmed by patient 's pharmacy Oxycodone 30 mg twice a day which was confirmed by patient's pharmacy 30 mg as needed for pain (pt was on 30 mg 4 times a day prescribed by Dr. Beckwith filled in January 29) neurology consult appreciated collateral info appreciated (mother) All medications were confirmed Risk benefits alternatives of all of the medications were explained to the patient Social work evaluation We'll monitor closely will be d/c tomorrow Estimated Date of D/C: 02/27/17 (will monitor closely)
[2017-02-26] MEDS: oxyCODONE 30 mg Immediate Release Tab PO PRN (23:08)
[2017-02-27] MEDS: oxyCODONE 30 mg Immediate Release Tab PO SCH (09:13)
[2017-02-27] MEDS: Metoprolol Succinate 50 mg XL Tab PO SCH (09:14)
[2017-02-27 09:21] VITALS: BP 123/85; PULSE 60
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
== END 2017-02-27 14:28 | disposition home or self-care (01) | DRG 897 ==
LOC: ED 03:59 → ERH 11:37 → PSYC 12:38
PROVIDERS: ADMIT Psychiatry & Neurology Psychiatry; ATTEND Psychiatry & Neurology Psychiatry
DX: F12.259 Cannabis dependence with psychotic disorder, unspecified (principal); F11.950 Opioid use, unspecified with opioid-induced psychotic disorder with delusions; T40.7X5A Adverse effect of cannabis (derivatives), initial encounter; T40.2X5A Adverse effect of other opioids, initial encounter; T43.015A Adverse effect of tricyclic antidepressants, initial encounter; M50.221 Other cervical disc displacement at C4-C5 level; M50.222 Other cervical disc displacement at C5-C6 level; M50.223 Other cervical disc displacement at C6-C7 level; G89.29 Other chronic pain; M54.17 Radiculopathy, lumbosacral region; F42.9 Obsessive-compulsive disorder, unspecified; F43.10 Post-traumatic stress disorder, unspecified; I10 Essential (primary) hypertension; F17.210 Nicotine dependence, cigarettes, uncomplicated; E78.5 Hyperlipidemia, unspecified

== ENCOUNTER 2017-08-03 16:50 | Inpatient (IN) | payer BC ==
[2017-08-03] MEDS ORDERED: Sodium Chloride 0.9% 1,000 ML IV STA (17:00)
[2017-08-03] MEDS ORDERED: Morphine 4 mg/ml ISec IVP STA (17:18)
[2017-08-03 17:29] LABS: BASO # 0.05 K/mm3 (0.0-2.0); BASO % 0.3 % (0.0-3.0); EOS # 0.1 (0.0-0.7); EOS % 0.8 % (1.5-5.0); GRAN # 12.64 (1.4-6.5); GRAN % 79.7 % (50.0-68.0); LYMPH # 1.1 (1.2-3.4); LYMPH % 6.8 % (22.0-35.0); MEAN CELL VOLUME 82.6 fl (80.0-105.0); MEAN CORPUSCULAR HEMOGLOBIN 29.2 pg (25.0-35.0); MEAN CORPUSCULAR HGB CONC 35.4 g/dl (31.0-37.0); MEAN PLATELET VOLUME 10.1 fl (7.0-11.0); MONO % 12.4 % (1.0-6.0); RED CELL DISTRIBUTION WIDTH 12.9 % (11.5-14.5); WHITE BLOOD COUNT 15.8 10^3/ul (4.5-11.0)
[2017-08-03] MEDS ORDERED: DiphenhydrAMINE 50 mg/ml Inj IVP STA ×2 (17:31→17:58)
[2017-08-03 17:42] LABS: ALB/GLOB RATIO 1.4 (1.1-1.8); ALKALINE PHOSPHATASE 68 U/L (38-126); ALT/SGPT 47 U/L (7-56); AMYLASE 61 U/L (35-125); AST/SGOT 51 U/L (17-59); BILIRUBIN,TOTAL 1.4 mg/dL (0.2-1.3); BLOOD UREA NITROGEN 19 mg/dL (7-21); CALCIUM 8.9 mg/dL (8.4-10.5); CARBON DIOXIDE 19 mmol/L (21-33); CHLORIDE 88 mmol/L (98-107); GFR AFRICAN-AMERICAN > 60; GLUCOSE,RANDOM 100 mg/dL (70-110); LIPASE 141 U/L (23-300); SODIUM 121 mmol/L (132-148); TOTAL PROTEIN 7.8 g/dL (5.8-8.3)
[2017-08-03 17:43] LABS: POTASSIUM 2.8 mmol/L (3.6-5.0)
--- NOTE | 2017-08-03 17:48 | RAD ---
HISTORY: ABDOMINAL PAIN COMPARISON: Chest x-ray performed 02/19/17 TECHNIQUE: Chest, one view. FINDINGS: LUNGS: No focal consolidation. Please note that chest x-ray has limited sensitivity for the detection of pulmonary masses. PLEURA: No significant pleural effusion identified. No definite pneumothorax . CARDIOVASCULAR: Heart size appears within normal limits. Ectatic aorta. OSSEOUS STRUCTURES: No acute osseous abnormality identified. VISUALIZED UPPER ABDOMEN: Unremarkable. OTHER FINDINGS: None. IMPRESSION: No focal consolidation, significant pleural effusion, or definite pneumothorax identified.
[2017-08-03] MEDS ORDERED: Iohexol 350 MG/100 ML VIAL ONE (18:17)
[2017-08-03 18:39] LABS: URINE APPEARANCE CLEAR (CLEAR); URINE BILIRUBIN NEGATIVE (NEGATIVE); URINE BLOOD SMALL (NEGATIVE); URINE COLOR YELLOW (YELLOW); URINE GLUCOSE (UA) NEGATIVE (NEGATIVE); URINE KETONE 15 mg/dL (NEGATIVE); URINE LEUKOCYTE ESTERASE NEGATIVE Leu/uL (NEGATIVE); URINE PROTEIN NEGATIVE mg/dL (<30 mg/dL); URINE UROBILINOGEN 0.2 E.U./dL (<1 E.U./dL)
[2017-08-03] MEDS ORDERED: Potassium Chloride 20 mEq ER Tab PO STA (18:48)
[2017-08-03 18:56] LABS: URINE BACTERIA MOD (NEG)
[2017-08-03 19:09] VITALS: BMI 26.8
--- NOTE | 2017-08-03 19:12 | ED PDOC ---
Arrival/HPI <Dread Mcqueen DO - Last Filed: 08/03/17 21:21> - General Historian: Patient, EMS - Critical Care Critical Care Minutes: 60 minutes - History of Present Illness Time/Duration: 1-3 hours Symptom Onset: Sudden Symptom Course: Unchanged Quality: Unable to Describe <Misa Busch - Last Filed: 08/03/17 21:38> - General Chief Complaint: GI Problem Time Seen by Provider: 08/03/17 16:59 - History of Present Illness Narrative History of Present Illness (Text): 08/03/17 19:18 47-year-old male presents today brought in by ambulance for nausea vomiting diarrhea and abdominal pain that started about 1-2 hours prior to arrival. Patient states he always has this problem where he has difficulty urinating gets abdominal pain and it will pass. Patient complaining of feeling the need to urinate. Patient admits to taking oxycodone but can't remember the last time that he took it. He admits to marijuana usage. Denies any other drug use. Patient states he has a history of schizophrenia and can't remember the last time that he took his medications. He denies headache. Patient states he's been no vomiting multiple times in the past hour as well as having many episodes of diarrhea. He denies sick contacts. He denies chest pain or shortness of breath. He is complaining of dry mouth. (Misa Busch) Past Medical History - Provider Review Nursing Documentation Reviewed: Yes - Travel History Have you recently traveled outside [place] w/in the past 3 mons?: No - Infectious Disease Hx of Infectious Diseases: None - Tetanus Immunization Tetanus Immunization: Up to Date - Past Medical History Past Medical History: No Previous - Cardiac Hx Cardiac Disorders: Yes Hx Hypertension: Yes - Pulmonary Hx Respiratory Disorders: No - Neurological Hx Neurological Disorder: No - HEENT Hx HEENT Disorder: No - Renal Hx Renal Disorder: No - Endocrine/Metabolic Hx Endocrine Disorders: No - Hematological/Oncological Hx Blood Disorders: No - Integumentary Hx Dermatological Disorder: No - Musculoskeletal/Rheumatological Hx Musculoskeletal Disorders: Yes Hx Back Pain: Yes Hx Herniated Disk: Yes (neck /lower back) - Gastrointestinal Hx Gastrointestinal Disorders: No - Genitourinary/Gynecological Hx Genitourinary Disorders: No - Psychiatric Hx Psychophysiologic Disorder: No Hx Anxiety: Yes Hx Depression: Yes Hx Schizophrenia: Yes Hx Substance Use: Yes (last use unk) - Past Surgical History Past Surgical History: No Previous - Surgical History Other/Comment: umbilical hernia repair - Anesthesia Hx Anesthesia: Yes Hx Anesthesia Reactions: No Hx Malignant Hyperthermia: No - Suicidal Assessment Feels Threatened In Home Enviroment: No <Misa Busch - Last Filed: 08/03/17 21:38> Family/Social History - Physician Review Nursing Documentation Reviewed: Yes Family/Social History: Unknown Family HX Smoking Status: Light Smoker < 10 Cigarettes Daily Hx Alcohol Use: No Hx Substance Use: Yes (last use unk) Substance used: marijuana Hx Substance Use Treatment: No <Misa Busch - Last Filed: 08/03/17 21:38> Allergies/Home Meds <Dread Mcqueen DO - Last Filed: 08/03/17 21:21> <Misa Busch - Last Filed: 08/03/17 21:38> Allergies/Adverse Reactions: Allergies No Known Allergies Allergy (Verified 08/03/17 20:43) Home Medications: Home Meds Medication Instructions Recorded Confirmed oxyCODONE [oxyCODONE Immediate 30 mg PO BID 08/03/17 08/03/17 Release Tab] Review of Systems - Review of Systems Constitutional: absent: Fevers Respiratory: absent: SOB, Cough Cardiovascular: absent: Chest Pain Gastrointestinal: Abdominal Pain, Diarrhea, Nausea, Vomiting Genitourinary Male: Urinary Output Changes. absent: Frequency, Hematuria Musculoskeletal: Back Pain (hx of chronic back pain). absent: Arthralgias Skin: absent: Rash Neurological: absent: Headache, Dizziness Endocrine: Polydipsia Psychiatric: Anxiety. absent: Depression, Suicidal Ideation <Misa Busch - Last Filed: 08/03/17 21:38> Physical Exam Vital Signs Reviewed: Yes Temperature: Afebrile Blood Pressure: Hypertensive Pulse: Regular Respiratory Rate: Normal Appearance: Positive for: Well-Appearing, Non-Toxic, Uncomfortable (restless) Pain Distress: Mild Mental Status: Positive for: Alert and Oriented X 3 - Systems Exam Head: Present: Atraumatic Pupils: Present: PERRL Mouth: Present: Dry. No: Drooling, Trismus Pharnyx: Present: Normal. No: ERYTHEMA, TONSILS ENLARGED Nose (External): Present: Atraumatic Neck: Present: Normal Range of Motion Respiratory/Chest: Present: Clear to Auscultation, Good Air Exchange. No: Respiratory Distress, Accessory Muscle Use Cardiovascular: Present: Tachycardic Abdomen: Present: Tenderness. No: Peritoneal Signs, Rebound Genitourinary Male: Present: Normal External Genitalia, Circumcised Penis Back: Present: Normal Inspection. No: CVA Tenderness, Midline Tenderness Upper Extremity: Present: Normal Inspection Lower Extremity: Present: Normal Inspection. No: Edema Skin: Present: Warm Psychiatric: Present: Alert, Anxious, Agitated <Misa Busch - Last Filed: 08/03/17 21:38> Vital Signs Temp Pulse Resp BP Pulse Ox 08/03/17 16:56 98 F 89 18 182/97 H 99 Medical Decision Making <Dread Mcqueen DO - Last Filed: 08/03/17 21:21> <Misa Busch - Last Filed: 08/03/17 21:38> ED Course and Treatment: 08/03/17 pt alert, oriented. with anxious, restless and agitated. c/o N/V/D and vague abdominal pain. pt is a poor historian. unsure of last dosage of medications. morphine given for abdominal pain. NS 1L iv bolus ordered benadryl 25mg given IV Cbc; wbc;15. 8 CMP: NA; 121 K; 2.8 cxr; wnl ekg; normal sinus rhythm at [address] elevations QTC of 513 pt tachycardic, hypertensive. becoming more and more agitated; continued tachycardia and diaphoresis. dr. mcqueen saw and evaluated patient at bedside; ativan, haldol and additional 25mg of benadryl ordered for agitating. stating "i have to pee" but unsteady on his feet while standing. mendieta catheter placed. 900cc urine released; pt pulling at catheter, nurse removed catheter. dr. mcqueen ordered additional 4mg of ativan for continued agitation; restraints ordered for aggressive behavior/danger to self. Unable to get CT of abdomen due to continued agitated; inability to lay still. Dr. mcqueen intubated patient to protect airway. CT head added. lithium level added. UDS: +opiates UA: + ketones Dr. vidales; burrer hand consulted. Dr vidales at bedside; case discussed in depth. case discussed with dr. vicente; he is unfamiliar with the patient; he advised discussed case with dr. bryant who saw patient in hospital in january of this year. case discussed with dr. sharp covering for dr. bryant; He would like patient admitted to hospitalist. impression; hyponatremia, hyperkalemia, abdominal pain, nausea and vomiting,, agitation admit to ICU pt will go to CT then to ICU; ICU to follow CT results. (Misa Busch) - Lab Interpretations Lab Results: 08/03/17 17:08 08/03/17 17:08 Lab Results 08/03/17 18:36: Urine Opiates Screen Positive H, Urine Methadone Screen Negative , Ur Barbiturates Screen Negative, Ur Phencyclidine Scrn Negative, Ur Amphetamines Screen Negative, U Benzodiazepines Scrn Negative, U Oth Cocaine Metabols Negative, U Cannabinoids Screen Negative 08/03/17 18:36: Urine Color Yellow, Urine Appearance Clear, Urine pH 6.0, Ur Specific [place] 1.010, Urine Protein Negative, Urine Glucose (UA) Negative, Urine Ketones 15 H, Urine Blood Small H, Urine Nitrate Negative, Urine Bilirubin Negative, Urine Urobilinogen 0.2, Ur Leukocyte Esterase Negative, Urine RBC 5 - 10, Urine WBC 2 - 5, Ur Epithelial Cells 3 - 4, Urine Bacteria Mod 08/03/17 18:29: Electra < 0.2 L 08/03/17 18:29: Salicylates < 1 L, Acetaminophen < 10.0 L 08/03/17 17:08: Serum Osmolality 267 L, TSH 3rd Generation 2.12 08/03/17 17:08: Lactate Dehydrogenase 772 H, Total Creatine Kinase 810 H, CK-MB (CK-2) 11.8 H, CK-MB (CK-2) % 1.5 L, Troponin I < 0.01 08/03/17 17:08: Alcohol, Quantitative < 10 08/03/17 17:08: WBC 15.8 H D, RBC 4.72, Hgb 13.8 L, Hct 39.0 L, MCV 82.6, MCH 29.2, MCHC 35.4, RDW 12.9, Plt Count 207, MPV 10.1, Gran % 79.7 H, Lymph % (Auto ) 6.8 L, [place] % (Auto) 12.4 H, Eos % (Auto) 0.8 L, Baso % (Auto) 0.3, Gran # 12.64 H, Lymph # 1.1 L, [place] # 2.0 H, Eos # 0.1, Baso # 0.05 08/03/17 17:08: Sodium 121 L, Potassium 2.8 L*, Chloride 88 L, Carbon Dioxide 19 L, Anion Gap 17, BUN 19, Creatinine 0.8, Est GFR ( Amer) > 60, Est GFR (Non-Af Amer) > 60, Random Glucose 100, Calcium 8.9, Phosphorus 2.4 L, Magnesium 1.5 L, Total Bilirubin 1.4 H, AST 51, ALT 47, Alkaline Phosphatase 68 , Total Protein 7.8, Albumin 4.5, Globulin 3.3, Albumin/Globulin Ratio 1.4, Amylase 61, Lipase 141 - RAD Interpretation Radiology Orders: 08/03/17 17:00 CHEST PORTABLE [RAD] Stat 08/03/17 17:10 ABD & PELVIS IV CONTRAST ONLY [CT] Stat 08/03/17 19:17 HEAD W/O CONTRAST [CT] Stat 08/03/17 20:20 CHEST PORTABLE [RAD] Stat - Medication Orders Current Medication Orders: Propofol (Diprivan) 1,000 mg in 100 mls @ 5.688 mls/hr IV .[id number] PRN; Protocol; 10 MCG/KG/MIN PRN Reason: TITRATE PER MD ORDER Lorazepam (Ativan) 2 mg IVP Q4H PRN; Protocol PRN Reason: Agitation Pantoprazole Sodium (Protonix Inj) 40 mg IVP DAILY HOOD Discontinued Medications Diphenhydramine HCl (Benadryl) 25 mg PO ONCE ONE Stop: 08/03/17 17:19 Last Admin: 08/03/17 17:28 Dose: Not Given Non-Admin Reason: Patient Refused Diphenhydramine HCl (Benadryl) 25 mg IVP STAT STA Stop: 08/03/17 17:32 Last Admin: 08/03/17 17:50 Dose: 25 mg Diphenhydramine HCl (Benadryl) 25 mg IVP STAT STA Stop: 08/03/17 17:59 Last Admin: 08/03/17 18:10 Dose: 25 mg Etomidate (Amidate) Confirm Administered Dose 20 mg IV .STK-MED ONE Stop: 08/03/17 19:24 Last Admin: 08/03/17 19:59 Dose: 20 mg Haloperidol Lactate (Haldol) 5 mg IM STAT STA PRN Reason: Protocol Stop: 08/03/17 17:59 Last Admin: 08/03/17 18:10 Dose: 5 mg Sodium Chloride (Sodium Chloride 0.9%) 1,000 mls @ 999 mls/hr IV .Q1H1M STA Stop: 08/03/17 18:00 Last Admin: 08/03/17 17:19 Dose: 999 mls/hr Potassium Chloride (Potassium Chloride 20 Meq/100 Ml) 20 meq in 100 mls @ 50 mls/hr IVPB ONCE ONE Stop: 08/03/17 20:47 Last Admin: 08/03/17 19:45 Dose: 50 mls/hr Propofol (Diprivan) Confirm Administered Dose 1,000 mg in 100 mls @ ud .ROUTE .STK-MED ONE Stop: 08/03/17 19:31 Sodium Chloride (Sodium Chloride 0.9%) 1,000 mls @ 125 mls/hr IV .Q8H HOOD Propofol (Diprivan) Confirm Administered Dose 1,000 mg in 100 mls @ ud .ROUTE .STK-MED ONE Stop: 08/03/17 20:44 Iohexol (Omnipaque 350 100 Ml) Confirm Administered Dose 350 mg .ROUTE .STK-MED ONE Stop: 08/03/17 18:18 Lorazepam (Ativan) 2 mg IVP ONCE ONE PRN Reason: Protocol Stop: 08/03/17 17:59 Last Admin: 08/03/17 18:10 Dose: 2 mg Lorazepam (Ativan) 2 mg IVP ONCE ONE PRN Reason: Protocol Stop: 08/03/17 18:30 Last Admin: 08/03/17 18:36 Dose: 2 mg Lorazepam (Ativan) 2 mg IVP ONCE ONE PRN Reason: Protocol Stop: 08/03/17 18:33 Last Admin: 08/03/17 18:36 Dose: 2 mg Morphine Sulfate (Morphine) 4 mg IVP STAT STA Stop: 08/03/17 17:19 Last Admin: 08/03/17 17:24 Dose: 4 mg Ondansetron HCl (Zofran Inj) 4 mg IVP STAT STA Stop: 08/03/17 17:01 Last Admin: 08/03/17 17:19 Dose: 4 mg Potassium Chloride (K-Dur 20 Meq Er Tab) 40 meq PO STAT STA Stop: 08/03/17 18:49 Last Admin: 08/03/17 20:09 Dose: Succinylcholine Chloride (Quelicin) Confirm Administered Dose 200 mg IV .STK- MED ONE Stop: 08/03/17 19:24 Last Admin: 08/03/17 19:24 Dose: 100 mg Succinylcholine Chloride (Quelicin) Confirm Administered Dose 200 mg IV .STK- MED ONE Stop: 08/03/17 19:38 Last Admin: 08/03/17 19:37 Dose: 50 mg Succinylcholine Chloride (Quelicin) 50 mg IV STAT STA Stop: 08/03/17 19:49 Last Admin: 08/03/17 19:48 Dose: 50 mg Disposition/Present on Arrival <Dread Mcqueen DO - Last Filed: 08/03/17 21:21> - Present on Arrival Any Indicators Present on Arrival: No History of DVT/PE: No History of Uncontrolled Diabetes: No Urinary Catheter: No History of Decub. Ulcer: No History Surgical Site Infection Following: None - Disposition Have Diagnosis and Disposition been Completed?: Yes Disposition Time: 19:00 Patient Plan: Admission, ICU <Misa Busch - Last Filed: 08/03/17 21:38> - Disposition Diagnosis: Hypokalemia, Hyponatremia, Agitation, History of schizophrenia, Abdominal pain , Nausea & vomiting Disposition: HOSPITALIZED Patient Problems: Current Active Problems Problem Status Onset Abdominal pain Acute Agitation Acute History of schizophrenia Acute Hypokalemia Acute Hyponatremia Acute Nausea & vomiting Acute Condition: CRITICAL Endotracheal Intubation - Endotracheal Intubation Intubated With ETT Size: 8.0 Blade Type Used: Curved Indication: Airway Protection Intubated: Orally Pre-Intubation Airway Assessment: Ventilated And Oxygenated Medications Used During Pre-Intubation: Etomidate Paralyzed With: Succinylcholine Post-Intubation Assessment: ETT Secured AT (cm): (22), Breath Sounds Equal Bilat , Placement Confirmed Via CXR, Color Change W/End Tidal CO2 Detector, Oxygen Saturation: (100) <Dread Mcqueen DO - Last Filed: 08/03/17 21:21>
[2017-08-03] MEDS ORDERED: Etomidate 20 mg/10ml Inj IV ONE (19:23)
[2017-08-03] MEDS ORDERED: Succinylcholine 200 mg/10 ml Inj IV ONE ×2 (19:23→19:37)
[2017-08-03] MEDS ORDERED: Propofol 10 mg/ml 1,000 MG/100 ML VIAL ONE ×2 (19:30→20:43)
[2017-08-03] MEDS: Propofol 10 mg/ml 1,000 MG/100 ML VIAL IV PRN (19:35)
[2017-08-03] MEDS ORDERED: Succinylcholine 200 mg/10 ml Inj IV STA (19:48)
[2017-08-03 20:07] LABS: TROPONIN I < 0.01 ng/mL
[2017-08-03] MEDS ORDERED: Sodium Chloride 0.9% 1,000 ML IV SCH (20:15)
[2017-08-03 21:00] LABS: MAGNESIUM 1.5 mg/dL (1.7-2.2); PHOSPHOROUS 2.4 mg/dL (2.5-4.5)
[2017-08-03 21:01] LABS: ALB/GLOB RATIO 1.3 (1.1-1.8); ALKALINE PHOSPHATASE 52 U/L (38-126); ALT/SGPT 32 U/L (7-56); AST/SGOT 67 U/L (17-59); BILIRUBIN,TOTAL 1.4 mg/dL (0.2-1.3); BLOOD UREA NITROGEN 14 mg/dL (7-21); CALCIUM 7.9 mg/dL (8.4-10.5); CARBON DIOXIDE 23 mmol/L (21-33); CHLORIDE 95 mmol/L (98-107); GFR AFRICAN-AMERICAN > 60; GLUCOSE,RANDOM 107 mg/dL (70-110); SODIUM 129 mmol/L (132-148); TOTAL PROTEIN 6.7 g/dL (5.8-8.3)
[2017-08-03 21:05] LABS: POTASSIUM 2.9 mmol/L (3.6-5.0)
--- NOTE | 2017-08-03 21:15 | CP.PCM.HP ---
<Ana Oden - Last Filed: 08/04/17 06:18> History of Present Illness - History of Present Illness History of Present Illness: PGY-2 H&P 47 yo male with PMH of schizophrenia, HTN, herniated disk brought in by EMS for nausea, vomiting, abd pain. Patient intubated at time of evaluation, history per ED. Per ED patient also reported dry month and feeling a need to urinate. Patient states he takes oxycodone and marijuana. Patient reports history of schizophrenia with questionable medications compliance. Patient was recently diagnosed with schizophrenia earlier this year in january. In the ED patient became more agitated with tachycardia and diaphoresis. Patient received multiple doses of Benadryl, Haldol and Ativan. A mendieta was placed and 900cc was removed. However patient's agitation continued despite medications. Patient was restrained. He was intubated for airway protection. PMH: schizophrenia, HTN, herniated disk PSH: umbilical hernia repair social hx: light smoker, denies alcohol use, marijuana use fam hx: unknown allergies: NKDA Present on Admission - Present on Admission Any Indicators Present on Admission: No Review of Systems - Review of Systems Systems not reviewed;Unavailable: Intubated Past Patient History - Infectious Disease Hx of Infectious Diseases: None - Tetanus Immunizations Tetanus Immunization: Up to Date - Past Social History Smoking Status: Light Smoker < 10 Cigarettes Daily - CARDIAC Hx Cardiac Disorders: Yes Hx Hypertension: Yes - PULMONARY Hx Respiratory Disorders: No - NEUROLOGICAL Hx Neurological Disorder: No - HEENT Hx HEENT Problems: No - RENAL Hx Chronic Kidney Disease: No - ENDOCRINE/METABOLIC Hx Endocrine Disorders: No - HEMATOLOGICAL/ONCOLOGICAL Hx Blood Disorders: No - INTEGUMENTARY Hx Dermatological Problems: No - MUSCULOSKELETAL/RHEUMATOLOGICAL Hx Musculoskeletal Disorders: Yes Hx Back Pain: Yes Hx Herniated Disk: Yes (neck /lower back) - GASTROINTESTINAL Hx Gastrointestinal Disorders: No - GENITOURINARY/GYNECOLOGICAL Hx Genitourinary Disorders: No - PSYCHIATRIC Hx Psychophysiologic Disorder: No Hx Anxiety: Yes Hx Depression: Yes Hx Schizophrenia: Yes Hx Substance Use: Yes (last use unk) - SURGICAL HISTORY Other/Comment: umbilical hernia repair - ANESTHESIA Hx Anesthesia: Yes Hx Anesthesia Reactions: No Hx Malignant Hyperthermia: No Meds Allergies/Adverse Reactions: Allergies Allergy/AdvReac Type Severity Reaction Status Date / Time No Known Allergies Allergy Verified 08/03/17 20:43 Physical Exam - Constitutional Additional comments: patient sedated and intubated - Head Exam Head Exam: ATRAUMATIC, NORMOCEPHALIC - ENT Exam ENT Exam: Mucous Membranes Moist - Respiratory Exam Respiratory Exam: Clear to Auscultation Bilateral, NORMAL BREATHING PATTERN. absent: Rales, Rhonchi, Wheezes, Respiratory Distress - Cardiovascular Exam Cardiovascular Exam: REGULAR RHYTHM, +S1, +S2. absent: Tachycardia, Systolic Murmur - GI/Abdominal Exam GI & Abdominal Exam: Normal Bowel Sounds, Soft. absent: Distended, Firm, Tenderness - Extremities Exam Extremities exam: Positive for: normal inspection. Negative for: pedal edema - Neurological Exam Additional comments: patient sedated - Skin Skin Exam: Dry, Intact, Normal Color, Warm Results - Vital Signs Recent Vital Signs: Last Vital Signs Temp 98 F 08/03/17 16:56 Pulse 89 08/03/17 16:56 Resp 18 08/03/17 16:56 BP 182/97 H 08/03/17 16:56 Pulse Ox 99 08/03/17 16:56 - Labs Result Diagrams: 08/03/17 17:08 08/04/17 04:09 Labs: Laboratory Results - last 24 hr 08/03/17 08/03/17 08/03/17 17:08 17:08 17:08 WBC 15.8 H D RBC 4.72 Hgb 13.8 L Hct 39.0 L MCV 82.6 MCH 29.2 MCHC 35.4 RDW 12.9 Plt Count 207 MPV 10.1 Gran % 79.7 H Lymph % (Auto) 6.8 L [place] % (Auto) 12.4 H Eos % (Auto) 0.8 L Baso % (Auto) 0.3 Gran # 12.64 H Lymph # 1.1 L [place] # 2.0 H Eos # 0.1 Baso # 0.05 Sodium 121 L Potassium 2.8 L* Chloride 88 L Carbon Dioxide 19 L Anion Gap 17 BUN 19 Creatinine 0.8 Est GFR ( Amer) > 60 Est GFR (Non-Af Amer) > 60 Random Glucose 100 Calcium 8.9 Phosphorus 2.4 L Magnesium 1.5 L Total Bilirubin 1.4 H AST 51 ALT 47 Alkaline Phosphatase 68 Ammonia Lactate Dehydrogenase Total Creatine Kinase CK-MB (CK-2) CK-MB (CK-2) % Troponin I Total Protein 7.8 Albumin 4.5 Globulin 3.3 Albumin/Globulin Ratio 1.4 Amylase 61 Lipase 141 Urine Color Urine Appearance Urine pH Ur Specific [place] Urine Protein Urine Glucose (UA) Urine Ketones Urine Blood Urine Nitrate Urine Bilirubin Urine Urobilinogen Ur Leukocyte Esterase Urine RBC Urine WBC Ur Epithelial Cells Urine Bacteria Ur Random Creatinine Salicylates Urine Opiates Screen Urine Methadone Screen Acetaminophen Ur Barbiturates Screen Ur Phencyclidine Scrn Ur Amphetamines Screen U Benzodiazepines Scrn [place] U Oth Cocaine Metabols U Cannabinoids Screen Alcohol, Quantitative < 10 08/03/17 08/03/17 08/03/17 17:08 18:29 18:29 WBC RBC Hgb Hct MCV MCH MCHC RDW Plt Count MPV Gran % Lymph % (Auto) [place] % (Auto) Eos % (Auto) Baso % (Auto) Gran # Lymph # [place] # Eos # Baso # Sodium Potassium Chloride Carbon Dioxide Anion Gap BUN Creatinine Est GFR ( Amer) Est GFR (Non-Af Amer) Random Glucose Calcium Phosphorus Magnesium Total Bilirubin AST ALT Alkaline Phosphatase Ammonia Lactate Dehydrogenase 772 H Total Creatine Kinase 810 H CK-MB (CK-2) 11.8 H CK-MB (CK-2) % 1.5 L Troponin I < 0.01 Total Protein Albumin Globulin Albumin/Globulin Ratio Amylase Lipase Urine Color Urine Appearance Urine pH Ur Specific [place] Urine Protein Urine Glucose (UA) Urine Ketones Urine Blood Urine Nitrate Urine Bilirubin Urine Urobilinogen Ur Leukocyte Esterase Urine RBC Urine WBC Ur Epithelial Cells Urine Bacteria Ur Random Creatinine Salicylates < 1 L Urine Opiates Screen Urine Methadone Screen Acetaminophen < 10.0 L Ur Barbiturates Screen Ur Phencyclidine Scrn Ur Amphetamines Screen U Benzodiazepines Scrn [place] < 0.2 L U Oth Cocaine Metabols U Cannabinoids Screen Alcohol, Quantitative 08/03/17 08/03/17 08/03/17 18:36 18:36 20:40 WBC RBC Hgb Hct MCV MCH MCHC RDW Plt Count MPV Gran % Lymph % (Auto) [place] % (Auto) Eos % (Auto) Baso % (Auto) Gran # Lymph # [place] # Eos # Baso # Sodium Potassium Chloride Carbon Dioxide Anion Gap BUN Creatinine Est GFR ( Amer) Est GFR (Non-Af Amer) Random Glucose Calcium Phosphorus Magnesium Total Bilirubin AST ALT Alkaline Phosphatase Ammonia 12 Lactate Dehydrogenase Total Creatine Kinase CK-MB (CK-2) CK-MB (CK-2) % Troponin I Total Protein Albumin Globulin Albumin/Globulin Ratio Amylase Lipase Urine Color Yellow Urine Appearance Clear Urine pH 6.0 Ur Specific [place] 1.010 Urine Protein Negative Urine Glucose (UA) Negative Urine Ketones 15 H Urine Blood Small H Urine Nitrate Negative Urine Bilirubin Negative Urine Urobilinogen 0.2 Ur Leukocyte Esterase Negative Urine RBC 5 - 10 Urine WBC 2 - 5 Ur Epithelial Cells 3 - 4 Urine Bacteria Mod Ur Random Creatinine Salicylates Urine Opiates Screen Positive H Urine Methadone Screen Negative Acetaminophen Ur Barbiturates Screen Negative Ur Phencyclidine Scrn Negative Ur Amphetamines Screen Negative U Benzodiazepines Scrn Negative [place] U Oth Cocaine Metabols Negative U Cannabinoids Screen Negative Alcohol, Quantitative 08/03/17 08/03/17 20:42 20:42 WBC RBC Hgb Hct MCV MCH MCHC RDW Plt Count MPV Gran % Lymph % (Auto) [place] % (Auto) Eos % (Auto) Baso % (Auto) Gran # Lymph # [place] # Eos # Baso # Sodium 129 L Potassium 2.9 L* Chloride 95 L Carbon Dioxide 23 Anion Gap 14 BUN 14 Creatinine 0.6 Est GFR ( Amer) > 60 Est GFR (Non-Af Amer) > 60 Random Glucose 107 Calcium 7.9 L Phosphorus Magnesium Total Bilirubin 1.4 H AST 67 H D ALT 32 Alkaline Phosphatase 52 Ammonia Lactate Dehydrogenase 944 H Total Creatine Kinase 1958 H CK-MB (CK-2) CK-MB (CK-2) % Troponin I Total Protein 6.7 Albumin 3.8 Globulin 2.9 Albumin/Globulin Ratio 1.3 Amylase Lipase Urine Color Urine Appearance Urine pH Ur Specific [place] Urine Protein Urine Glucose (UA) Urine Ketones Urine Blood Urine Nitrate Urine Bilirubin Urine Urobilinogen Ur Leukocyte Esterase Urine RBC Urine WBC Ur Epithelial Cells Urine Bacteria Ur Random Creatinine 55 Salicylates Urine Opiates Screen Urine Methadone Screen Acetaminophen Ur Barbiturates Screen Ur Phencyclidine Scrn Ur Amphetamines Screen U Benzodiazepines Scrn [place] U Oth Cocaine Metabols U Cannabinoids Screen Alcohol, Quantitative Assessment & Plan - Assessment and Plan (Free Text) Assessment: 47 yo male with PMH of schizophrenia, HTN, herniated disk presented with AMS, hyponatremia, hypokalemia. Intubated in ED for airway protection. Plan: Neuro: - AMS 2/2 to possible sertonin syndrome vs anticholinergic toxicity - CT head pending - intubated, sedated on propofol - TSH and ammonia pending - ativan prn - neurology consulted, psych consulted cardiovascular - no h/o heart disease - propofol will help decrease BP - cardiac iso pending - cont to monitor - maintain MAP> 65 respiratory - pt intubated for airway protection - ABG pending - CXR should no acute disease GI - CT abd/pel pending - lipase, amylase are wnl - GI ppx protonix renal - hyponatremia- recieved NS bolus in ED, started on IVF NS at 125 cc/ho - hypokalemia- potassium 40 meq PO an 20 meq IVF given in ED - patient had about 3000cc output via mendieta catheter in the ED - strict I&O - urine lytes, creatinine, osmolality pending - nephro consulted ID - afebrile with leukocytosis - UA showed no leukocytosis, nitrates, small blood - blood and urine cultures ordered - procalcitonin pending MSK - elevated CK, possible rhabdomyolysis - IVF NS @125 <Anne-Marie THAKUR,Chris - Last Filed: 08/04/17 06:26> Results - Vital Signs Recent Vital Signs: Last Vital Signs Temp 98.6 F 08/03/17 21:43 Pulse 76 08/04/17 05:10 Resp 15 08/04/17 00:00 BP 149/95 H 08/04/17 05:00 Pulse Ox 99 08/04/17 05:10 - Labs Result Diagrams: 08/03/17 17:08 08/04/17 04:09 Labs: Laboratory Results - last 24 hr 08/03/17 08/03/17 08/03/17 20:40 20:42 20:42 PT INR pCO2 pO2 HCO3 ABG pH ABG Total CO2 ABG O2 Saturation ABG Base Excess ABG Potassium Glucose Lactate Mechanical Rate FiO2 Tidal Volume PEEP Sodium 129 L Potassium 2.9 L* Chloride 95 L Carbon Dioxide 23 Anion Gap 14 BUN 14 Creatinine 0.6 Est GFR ( Amer) > 60 Est GFR (Non-Af Amer) > 60 Random Glucose 107 Serum Osmolality Calcium 7.9 L Phosphorus Magnesium Total Bilirubin 1.4 H AST 67 H D ALT 32 Alkaline Phosphatase 52 Ammonia 12 Lactate Dehydrogenase 944 H Total Creatine Kinase 1958 H CK-MB (CK-2) 29.1 H CK-MB (CK-2) % Troponin I < 0.01 Total Protein 6.7 Albumin 3.8 Globulin 2.9 Albumin/Globulin Ratio 1.3 Arterial Blood Potassium Urine Osmolality 318 Ur Random Creatinine Ur Random Sodium 08/03/17 08/03/17 08/04/17 20:42 22:59 01:00 PT 11.8 INR 1.09 H pCO2 38 pO2 199.0 H HCO3 25.2 ABG pH 7.43 ABG Total CO2 26.4 ABG O2 Saturation 99.8 H ABG Base Excess 1.0 ABG Potassium 3.2 L Glucose 99 Lactate 0.8 Mechanical Rate 16 FiO2 60.0 Tidal Volume 500 PEEP 5 Sodium 136.0 Potassium Chloride 102.0 Carbon Dioxide Anion Gap BUN Creatinine Est GFR ( Amer) Est GFR (Non-Af Amer) Random Glucose Serum Osmolality Calcium Phosphorus Magnesium Total Bilirubin AST ALT Alkaline Phosphatase Ammonia Lactate Dehydrogenase Total Creatine Kinase CK-MB (CK-2) CK-MB (CK-2) % Troponin I Total Protein Albumin Globulin Albumin/Globulin Ratio Arterial Blood Potassium 3.2 L Urine Osmolality Ur Random Creatinine 55 Ur Random Sodium 24 08/04/17 08/04/17 08/04/17 01:00 01:00 03:15 PT INR pCO2 pO2 HCO3 ABG pH ABG Total CO2 ABG O2 Saturation ABG Base Excess ABG Potassium Glucose Lactate Mechanical Rate FiO2 Tidal Volume PEEP Sodium 137 Potassium 3.1 L Chloride 101 Carbon Dioxide 25 Anion Gap 14 BUN 10 Creatinine 0.6 Est GFR ( Amer) > 60 Est GFR (Non-Af Amer) > 60 Random Glucose 102 Serum Osmolality 286 Calcium 8.9 Phosphorus 3.6 Magnesium 1.9 Total Bilirubin 1.6 H AST 94 H D ALT 50 Alkaline Phosphatase 58 Ammonia Lactate Dehydrogenase Total Creatine Kinase 2805 H CK-MB (CK-2) 44.6 H CK-MB (CK-2) % 1.6 L Troponin I Total Protein 7.3 Albumin 4.1 Globulin 3.1 Albumin/Globulin Ratio 1.3 Arterial Blood Potassium Urine Osmolality 166 Ur Random Creatinine Ur Random Sodium 08/04/17 08/04/17 03:15 04:09 PT INR pCO2 pO2 HCO3 ABG pH ABG Total CO2 ABG O2 Saturation ABG Base Excess ABG Potassium Glucose Lactate Mechanical Rate FiO2 Tidal Volume PEEP Sodium 137 Potassium 3.2 L Chloride 105 Carbon Dioxide 24 Anion Gap 11 BUN 9 Creatinine 0.6 Est GFR ( Amer) > 60 Est GFR (Non-Af Amer) > 60 Random Glucose 112 H Serum Osmolality Calcium 7.9 L Phosphorus 2.9 Magnesium 2.2 Total Bilirubin 0.9 AST 78 H ALT 47 Alkaline Phosphatase 50 Ammonia Lactate Dehydrogenase 774 H Total Creatine Kinase 2222 H CK-MB (CK-2) CK-MB (CK-2) % Troponin I < 0.01 Total Protein 6.2 Albumin 3.5 Globulin 2.8 Albumin/Globulin Ratio 1.3 Arterial Blood Potassium Urine Osmolality Ur Random Creatinine Ur Random Sodium 8 Attending/Attestation - Attestation I have personally seen and examined this patient.: Yes I have fully participated in the care of the patient.: Yes I have reviewed all pertinent clinical information: Yes Notes (Text): 08/04/17 06:24 -I agree with the above H&P completed by the resident physician with the following additions and/or changes: The patient is a 47 year old man with history of schizophrenia, HTN, chronic low back pain and chronic opioid abuse, who presented with 1 day of worsening recurrent diarrhea, nausea, vomiting, and urinary retention. Soon after arrival to the ED, he developed rapidly worsening agitation, restlessness, involuntary muscle spasms, altered mentation and diaphoresis. His symptoms were unresponsive to multiple sedative meds given in the ED. Ultimately, because of rapidly worsening agitation, he was intubated for airway protection. The patient s numerous acute medical issues are listed below. Poison control has been notified because of a high suspicion for possible serotonin syndrome and they recommended supportive care and PRN IV Benzodiazepines for agitation and/or spasticity. Of note, the patient was initially started on NS IV @125cc/hr with serial BMPs checks for close monitoring of serum sodium levels. After just 3 hours, the patients serum sodium increased from 121 to 126 and therefore IVFs were discontinued. Although all IVFs had been discontinued, the next serum sodium ( checked 4 hours later) was markedly increased at 137. Consequently, in an attempt to avoid CPM, D5W IVF boluses have been started alongside Desmopressin 2mcg IV Q6hrs X3 (first dose given at approx. 3:15AM). Nephrology, psychiatry and neurology consults have all been placed for further recommendations. 1. Acute AMS, Restlessness and Agitation: -ddx: seraotonin syndrome vs anticoholintegic toxicity vs exotic drug intoxication (i.e- Xtacy) 2. Hyponatremia (med side effects vs intravascular depletion) 3. Acute Diarrhea, Nausea and Vomiting (due to Acute Enteritis) 4. Persistent Hypokalemia (likely due to vomiting and post-obstructive diuresis) 5. Acute Urinary Retention (possibly due to effects of Oxycodone) 6. Post-obstructive Diuresis
[2017-08-03 21:20] LABS: TROPONIN I < 0.01 ng/mL
--- NOTE | 2017-08-03 21:26 | CT ---
EXAM: CT Head Without Intravenous Contrast CLINICAL HISTORY: 47 years old, male; Signs and symptoms; Altered mental status/memory loss; Additional info: AMS TECHNIQUE: Axial computed tomography images of the head/brain without intravenous contrast. All CT scans at this facility use one or more dose reduction techniques, viz.: automated exposure control; ma/kV adjustment per patient size (including targeted exams where dose is matched to indication; i.e. head); or iterative reconstruction technique. COMPARISON: No relevant prior studies available. examination is limited by motion artifact. FINDINGS: Brain: No acute intracranial hemorrhage. No significant white matter disease. No edema. Ventricles: No significant ventriculomegaly. Bones: No acute displaced fracture. Sinuses: Unremarkable as visualized. No acute sinusitis. Mastoid air cells: Unremarkable as visualized. No mastoid effusion. Endotracheal and orogastric tubes are present. IMPRESSION: No acute intracranial hemorrhage, or suspicious mass effect.
[2017-08-03 21:32] LABS: THYROID STIMULATING HORMONE 2.12 mIU/mL (0.46-4.68)
--- NOTE | 2017-08-03 21:43 | CT ---
EXAM: CT Abdomen and Pelvis With Intravenous Contrast CLINICAL HISTORY: 47 years old, male; Pain; Abdominal pain; Additional info: Abd pain TECHNIQUE: Axial computed tomography images of the abdomen and pelvis with intravenous contrast. All CT scans at this facility use one or more dose reduction techniques, viz.: automated exposure control; ma/kV adjustment per patient size (including targeted exams where dose is matched to indication; i.e. head); or iterative reconstruction technique. Coronal and sagittal reformatted images were created and reviewed. CONTRAST: 100 mL of OMNIPAQUE administered intravenously. COMPARISON: No relevant prior studies available. FINDINGS: Lower thorax: Bibasilar consolidation. ABDOMEN: Liver: No acute findings. Gallbladder and bile ducts: The gallbladder is decompressed, without calcified stones. No significant intra- or extrahepatic biliary ductal dilation. Pancreas: Enhances homogeneously. Moderate ductal dilation. No discrete mass. Spleen: No acute findings. Adrenals: No acute findings. Kidneys and ureters: No hydronephrosis or obstructing renal calculi. No discrete solid mass.Bilateral perinephric inflammatory change is present. Multiple rounded areas of decreased attenuation are identified within the bilateral kidneys, statistically representing cysts. PELVIS: Bladder: The bladder is decompressed with Fragoso catheter, limiting its evaluation. Reproductive: No acute findings. Appendix: The air filled appendix is of normal caliber (series 2, image 148) . ABDOMEN and PELVIS: Stomach and bowel: Nasogastric tube extends into the stomach. Air opacification of the colon, without obstruction. Mural thickening is identified within multiple loops of small bowel, with trace surrounding inflammatory change, findings suggestive of an acute enteritis. Peritoneum: As above. Lymph nodes: No pathologically enlarged lymph nodes. Vasculature: Unremarkable. Bones: Degenerative disease is identified within the lumbosacral spine, with endplate changes and vacuum phenomena. No acute fracture. IMPRESSION: Findings suggestive of an acute enteritis, as detailed above. Bilateral perinephric inflammatory change, far advanced than one would expect for a patient of this age. Moderate ductal dilatation within the pancreas, without a discrete mass identified.
[2017-08-03] MEDS ORDERED: Magnesium Sulfate 2 GM in Sodium Chloride 0.9% 100 ML IVPB ONE (22:05)
[2017-08-03] MEDS ORDERED: Pneumococcal 23-Valent Vaccine IM ONE (22:09)
[2017-08-03] MEDS: Potassium Phosphate 15 MMOLE in Dextrose 5% In Water 250 ML IVPB ONE ×2 (23:00→23:05)
[2017-08-03 23:08] LABS: ABG MECHANICAL RATE 16; ARTERIAL BLOOD GAS HCO3 25.2 mmol/L (21-28); ARTERIAL BLOOD GAS PH 7.43 (7.35-7.45); ATERIAL BLOOD GAS PEEP 5
[2017-08-03] MEDS: metroNIDAZOLE IV 500 mg/100 ml 500 MG/100 ML BAG IVPB SCH (23:45)
[2017-08-04] MEDS: cefTRIAXone 1 gm 1 GM/100 ML BAG IVPB SCH ×2 (00:43→09:02)
[2017-08-04] MEDS: Propofol 10 mg/ml 1,000 MG/100 ML VIAL IV PRN ×5 (00:47→14:32)
[2017-08-04 01:25] LABS: INR 1.09 (0.93-1.08)
[2017-08-04 01:27] LABS: ALB/GLOB RATIO 1.3 (1.1-1.8); ALKALINE PHOSPHATASE 58 U/L (38-126); ALT/SGPT 50 U/L (7-56); AST/SGOT 94 U/L (17-59); BILIRUBIN,TOTAL 1.6 mg/dL (0.2-1.3); BLOOD UREA NITROGEN 10 mg/dL (7-21); CALCIUM 8.9 mg/dL (8.4-10.5); CARBON DIOXIDE 25 mmol/L (21-33); CHLORIDE 101 mmol/L (98-107); GFR AFRICAN-AMERICAN > 60; GLUCOSE,RANDOM 102 mg/dL (70-110); MAGNESIUM 1.9 mg/dL (1.7-2.2); PHOSPHOROUS 3.6 mg/dL (2.5-4.5); POTASSIUM 3.1 mmol/L (3.6-5.0); SODIUM 137 mmol/L (132-148); TOTAL PROTEIN 7.3 g/dL (5.8-8.3)
[2017-08-04 04:37] LABS: ALB/GLOB RATIO 1.3 (1.1-1.8); ALKALINE PHOSPHATASE 50 U/L (38-126); ALT/SGPT 47 U/L (7-56); AST/SGOT 78 U/L (17-59); BILIRUBIN,TOTAL 0.9 mg/dL (0.2-1.3); BLOOD UREA NITROGEN 9 mg/dL (7-21); CALCIUM 7.9 mg/dL (8.4-10.5); CARBON DIOXIDE 24 mmol/L (21-33); CHLORIDE 105 mmol/L (98-107); GFR AFRICAN-AMERICAN > 60; GLUCOSE,RANDOM 112 mg/dL (70-110); MAGNESIUM 2.2 mg/dL (1.7-2.2); PHOSPHOROUS 2.9 mg/dL (2.5-4.5); POTASSIUM 3.2 mmol/L (3.6-5.0); SODIUM 137 mmol/L (132-148); TOTAL PROTEIN 6.2 g/dL (5.8-8.3)
[2017-08-04 04:53] LABS: TROPONIN I < 0.01 ng/mL
[2017-08-04] MEDS: metroNIDAZOLE IV 500 mg/100 ml 500 MG/100 ML BAG IVPB SCH ×3 (05:05→21:45)
[2017-08-04] MEDS ORDERED: Potassium Chloride 40 mEq/30 ml LIQ UD PO ONE ×2 (06:50→16:46)
--- NOTE | 2017-08-04 07:37 | RAD ---
HISTORY: post intubation COMPARISON: 08/03/2017 at 5:33 p.m. FINDINGS: LUNGS: No active pulmonary disease. PLEURA: No significant pleural effusion identified, no pneumothorax apparent. CARDIOVASCULAR: Normal heart size. No congestive change. Endotracheal tube tip 4.6 cm above tracheal renee. Nasogastric tube extends to left upper quadrant of abdomen. OSSEOUS STRUCTURES: No significant abnormalities. VISUALIZED UPPER ABDOMEN: Normal. OTHER FINDINGS: None. IMPRESSION: No active disease. ETT and NG tube noted, appropriately positioned.
--- NOTE | 2017-08-04 07:58 | CP.CCUPN ---
<Pilar Chi - Last Filed: 08/04/17 10:27> CCU Subjective - Physician Review Events Since Last Encounter (Free Text): 08/04/17 07:55 Agitation overnight as per nursing, 1:1 Subjective (Free Text): 08/04/17 07:55 Critical care progress note for Dr. Yanci Chi, PGY-1 Pt S & E at bedside. Pt intubated, sedated, arousable to tactile stimuli. Critical Care Time Spent (in minutes): 40 CCU Objective - Vital Signs / Intake & Output Vital Signs (Last 4 hours): Vital Signs Pulse BP Pulse Ox 08/04/17 05:10 76 99 08/04/17 05:00 83 149/95 H 99 08/04/17 04:50 82 98 08/04/17 04:40 83 98 08/04/17 04:30 83 98 08/04/17 04:20 84 99 08/04/17 04:10 83 99 08/04/17 04:00 84 140/87 100 Intake and Output (Last 8hrs): Intake & Output 08/03/17 08/04/17 08/04/17 22:59 06:59 14:59 Intake Total 172 3007 Output Total 7800 Balance 172 -4793 Weight 94.801 kg 89.443 kg Intake: IV 172 657 Left Hand 400 Right Hand 257 Albumin 2350 Output: Urine 7800 Urethral (Fragoso) 7800 Other: Voiding Method Indwelling Catheter Indwelling Catheter # Bowel Movements Urethral (Fragoso) 0 - Physical Exam Head: Positive for: Atraumatic Mouth: Positive for: Dry. Negative for: Drooling, Trismus Pharnyx: Positive for: Normal. Negative for: ERYTHEMA, TONSILS ENLARGED Nose (External): Positive for: Atraumatic Respiratory/Chest: Positive for: Clear to Auscultation, Good Air Exchange. Negative for: Respiratory Distress, Accessory Muscle Use, Wheezes, Rales, Rhonchi Cardiovascular: Positive for: Regular Rate and Rhythm, Normal S1, S2. Negative for: Murmurs Abdomen: Positive for: Normal Bowel Sounds. Negative for: Peritoneal Signs, Rebound, Guarding, Scars Genitourinary Male: Positive for: Normal External Genitalia, Circumcised Penis, Other (Fragoso in place) Back: Negative for: CVA Tenderness, Midline Tenderness Upper Extremity: Positive for: Normal Inspection Lower Extremity: Positive for: Normal Inspection. Negative for: Edema Neurological: Positive for: Other (intubated/sedated). Negative for: GCS=15, CN II-XII Intact, Speech Normal Skin: Positive for: Warm, Dry, Normal Color. Negative for: Rashes Psychiatric: Positive for: Other (intubated/sedated). Negative for: Alert, Oriented x 3, Normal Insight, Normal Concentration - Medications Active Medications: Active Medications Generic Name Dose Route Start Last Admin Trade Name Freq PRN Reason Stop Dose Admin Enoxaparin Sodium 40 mg 08/04/17 10:00 Lovenox SC DAILY HOOD Protocol Propofol 1,000 mg in 100 mls @ 5.688 mls/hr 08/03/17 20:34 08/04/17 04:07 Diprivan IV 50 mcg/kg/min .[id number] PRN 28.44 mls/hr TITRATE PER MD ORDER Administration Protocol 10 MCG/KG/MIN Metronidazole 500 mg in 100 mls @ 100 mls/hr 08/03/17 23:15 08/04/17 05:05 Flagyl IVPB 100 mls/hr Q8 HOOD Administration Protocol Ceftriaxone Sodium 1 gm in 100 mls @ 100 mls/hr 08/04/17 00:30 08/04/17 00:43 Rocephin 1 Gram Ivpb IVPB 100 mls/hr DAILY HOOD Administration Protocol Potassium Chloride 20 meq/ 1,010 mls @ 100 mls/hr 08/04/17 02:24 08/04/17 02: 52 Dextrose IV 100 mls/hr .[id number] HOOD Administration Desmopressin Acetate 2 mcg/ 50.5 mls @ 100 mls/hr 08/04/17 09:00 Sodium Chloride IV 08/04/17 15:00 Q6H HOOD Lorazepam 2 mg 08/03/17 20:09 08/04/17 06:35 Ativan IVP 2 mg Q4H PRN Administration Agitation Protocol Pantoprazole Sodium 40 mg 08/04/17 10:00 Protonix Inj IVP DAILY HOOD - Patient Studies Lab Studies: Lab Studies 08/04/17 08/04/17 08/04/17 Range/Units 04:09 03:15 03:15 PT (9.9-11.8) Seconds INR (0.93-1.08) pCO2 (35-45) mm/Hg pO2 (80-100) mm/Hg HCO3 (21-28) mmol/L ABG pH (7.35-7.45) ABG Total CO2 (22-28) mmol.L ABG O2 Saturation (95-98) % ABG Base Excess (-2.0-3.0) mmol/L ABG Potassium (3.6-5.2) mmol/L Glucose (75-110) mg/dl Lactate (0.7-2.1) mmol/L Mechanical Rate FiO2 % Tidal Volume PEEP Sodium 137 (132-148) mmol/L Potassium 3.2 L (3.6-5.0) mmol/L Chloride 105 (98-107) mmol/L Carbon Dioxide 24 (21-33) mmol/L Anion Gap 11 (10-20) BUN 9 (7-21) mg/dL Creatinine 0.6 (0.5-1.4) mg/dL Est GFR ( Amer) > 60 Est GFR (Non-Af Amer) > 60 Random Glucose 112 H (70-110) mg/dL Serum Osmolality (271-296) mosm/kg Calcium 7.9 L (8.4-10.5) mg/dL Phosphorus 2.9 (2.5-4.5) mg/dL Magnesium 2.2 (1.7-2.2) mg/dL Total Bilirubin 0.9 (0.2-1.3) mg/dL AST 78 H (17-59) U/L ALT 47 (7-56) U/L Alkaline Phosphatase 50 (38-126) U/L Ammonia (9-33) umol/L Lactate Dehydrogenase 774 H (333-699) U/L Total Creatine Kinase 2222 H (35-230) U/L CK-MB (CK-2) 32.2 H (0.0-3.6) ng/mL CK-MB (CK-2) % (2.5-3.0) % Troponin I < 0.01 ng/mL Total Protein 6.2 (5.8-8.3) g/dL Albumin 3.5 (3.0-4.8) g/dL Globulin 2.8 gm/dL Albumin/Globulin Ratio 1.3 (1.1-1.8) Arterial Blood Potassium (3.6-5.2) mmol/L Urine Osmolality 166 (50-645) mosm/kg Ur Random Creatinine mg/dL Ur Random Sodium 8 meq/L 08/04/17 08/04/17 08/04/17 Range/Units 01:00 01:00 01:00 PT 11.8 (9.9-11.8) Seconds INR 1.09 H (0.93-1.08) pCO2 (35-45) mm/Hg pO2 (80-100) mm/Hg HCO3 (21-28) mmol/L ABG pH (7.35-7.45) ABG Total CO2 (22-28) mmol.L ABG O2 Saturation (95-98) % ABG Base Excess (-2.0-3.0) mmol/L ABG Potassium (3.6-5.2) mmol/L Glucose (75-110) mg/dl Lactate (0.7-2.1) mmol/L Mechanical Rate FiO2 % Tidal Volume PEEP Sodium 137 (132-148) mmol/L Potassium 3.1 L (3.6-5.0) mmol/L Chloride 101 (98-107) mmol/L Carbon Dioxide 25 (21-33) mmol/L Anion Gap 14 (10-20) BUN 10 (7-21) mg/dL Creatinine 0.6 (0.5-1.4) mg/dL Est GFR ( Amer) > 60 Est GFR (Non-Af Amer) > 60 Random Glucose 102 (70-110) mg/dL Serum Osmolality 286 (271-296) mosm/kg Calcium 8.9 (8.4-10.5) mg/dL Phosphorus 3.6 (2.5-4.5) mg/dL Magnesium 1.9 (1.7-2.2) mg/dL Total Bilirubin 1.6 H (0.2-1.3) mg/dL AST 94 H D (17-59) U/L ALT 50 (7-56) U/L Alkaline Phosphatase 58 (38-126) U/L Ammonia (9-33) umol/L Lactate Dehydrogenase (333-699) U/L Total Creatine Kinase 2805 H (35-230) U/L CK-MB (CK-2) 44.6 H (0.0-3.6) ng/mL CK-MB (CK-2) % 1.6 L (2.5-3.0) % Troponin I ng/mL Total Protein 7.3 (5.8-8.3) g/dL Albumin 4.1 (3.0-4.8) g/dL Globulin 3.1 gm/dL Albumin/Globulin Ratio 1.3 (1.1-1.8) Arterial Blood Potassium (3.6-5.2) mmol/L Urine Osmolality (50-645) mosm/kg Ur Random Creatinine mg/dL Ur Random Sodium meq/L 08/03/17 08/03/17 08/03/17 Range/Units 22:59 20:42 20:42 PT (9.9-11.8) Seconds INR (0.93-1.08) pCO2 38 (35-45) mm/Hg pO2 199.0 H (80-100) mm/Hg HCO3 25.2 (21-28) mmol/L ABG pH 7.43 (7.35-7.45) ABG Total CO2 26.4 (22-28) mmol.L ABG O2 Saturation 99.8 H (95-98) % ABG Base Excess 1.0 (-2.0-3.0) mmol/L ABG Potassium 3.2 L (3.6-5.2) mmol/L Glucose 99 (75-110) mg/dl Lactate 0.8 (0.7-2.1) mmol/L Mechanical Rate 16 FiO2 60.0 % Tidal Volume 500 PEEP 5 Sodium 136.0 129 L (132-148) mmol/L Potassium 2.9 L* (3.6-5.0) mmol/L Chloride 102.0 95 L (98-107) mmol/L Carbon Dioxide 23 (21-33) mmol/L Anion Gap 14 (10-20) BUN 14 (7-21) mg/dL Creatinine 0.6 (0.5-1.4) mg/dL Est GFR ( Amer) > 60 Est GFR (Non-Af Amer) > 60 Random Glucose 107 (70-110) mg/dL Serum Osmolality (271-296) mosm/kg Calcium 7.9 L (8.4-10.5) mg/dL Phosphorus (2.5-4.5) mg/dL Magnesium (1.7-2.2) mg/dL Total Bilirubin 1.4 H (0.2-1.3) mg/dL AST 67 H D (17-59) U/L ALT 32 (7-56) U/L Alkaline Phosphatase 52 (38-126) U/L Ammonia (9-33) umol/L Lactate Dehydrogenase 944 H (333-699) U/L Total Creatine Kinase 1958 H (35-230) U/L CK-MB (CK-2) 29.1 H (0.0-3.6) ng/mL CK-MB (CK-2) % (2.5-3.0) % Troponin I < 0.01 ng/mL Total Protein 6.7 (5.8-8.3) g/dL Albumin 3.8 (3.0-4.8) g/dL Globulin 2.9 gm/dL Albumin/Globulin Ratio 1.3 (1.1-1.8) Arterial Blood Potassium 3.2 L (3.6-5.2) mmol/L Urine Osmolality (50-645) mosm/kg Ur Random Creatinine 55 mg/dL Ur Random Sodium 24 meq/L 08/03/17 08/03/17 Range/Units 20:42 20:40 PT (9.9-11.8) Seconds INR (0.93-1.08) pCO2 (35-45) mm/Hg pO2 (80-100) mm/Hg HCO3 (21-28) mmol/L ABG pH (7.35-7.45) ABG Total CO2 (22-28) mmol.L ABG O2 Saturation (95-98) % ABG Base Excess (-2.0-3.0) mmol/L ABG Potassium (3.6-5.2) mmol/L Glucose (75-110) mg/dl Lactate (0.7-2.1) mmol/L Mechanical Rate FiO2 % Tidal Volume PEEP Sodium (132-148) mmol/L Potassium (3.6-5.0) mmol/L Chloride (98-107) mmol/L Carbon Dioxide (21-33) mmol/L Anion Gap (10-20) BUN (7-21) mg/dL Creatinine (0.5-1.4) mg/dL Est GFR ( Amer) Est GFR (Non-Af Amer) Random Glucose (70-110) mg/dL Serum Osmolality (271-296) mosm/kg Calcium (8.4-10.5) mg/dL Phosphorus (2.5-4.5) mg/dL Magnesium (1.7-2.2) mg/dL Total Bilirubin (0.2-1.3) mg/dL AST (17-59) U/L ALT (7-56) U/L Alkaline Phosphatase (38-126) U/L Ammonia 12 (9-33) umol/L Lactate Dehydrogenase (333-699) U/L Total Creatine Kinase (35-230) U/L CK-MB (CK-2) (0.0-3.6) ng/mL CK-MB (CK-2) % (2.5-3.0) % Troponin I ng/mL Total Protein (5.8-8.3) g/dL Albumin (3.0-4.8) g/dL Globulin gm/dL Albumin/Globulin Ratio (1.1-1.8) Arterial Blood Potassium (3.6-5.2) mmol/L Urine Osmolality 318 (50-645) mosm/kg Ur Random Creatinine mg/dL Ur Random Sodium meq/L Laboratory Results - last 24 hr 08/03/17 08/03/17 08/03/17 20:40 20:42 20:42 PT INR pCO2 pO2 HCO3 ABG pH ABG Total CO2 ABG O2 Saturation ABG Base Excess ABG Potassium Glucose Lactate Mechanical Rate FiO2 Tidal Volume PEEP Sodium 129 L Potassium 2.9 L* Chloride 95 L Carbon Dioxide 23 Anion Gap 14 BUN 14 Creatinine 0.6 Est GFR ( Amer) > 60 Est GFR (Non-Af Amer) > 60 Random Glucose 107 Serum Osmolality Calcium 7.9 L Phosphorus Magnesium Total Bilirubin 1.4 H AST 67 H D ALT 32 Alkaline Phosphatase 52 Ammonia 12 Lactate Dehydrogenase 944 H Total Creatine Kinase 1958 H CK-MB (CK-2) 29.1 H CK-MB (CK-2) % Troponin I < 0.01 Total Protein 6.7 Albumin 3.8 Globulin 2.9 Albumin/Globulin Ratio 1.3 Arterial Blood Potassium Urine Osmolality 318 Ur Random Creatinine Ur Random Sodium 08/03/17 08/03/17 08/04/17 20:42 22:59 01:00 PT 11.8 INR 1.09 H pCO2 38 pO2 199.0 H HCO3 25.2 ABG pH 7.43 ABG Total CO2 26.4 ABG O2 Saturation 99.8 H ABG Base Excess 1.0 ABG Potassium 3.2 L Glucose 99 Lactate 0.8 Mechanical Rate 16 FiO2 60.0 Tidal Volume 500 PEEP 5 Sodium 136.0 Potassium Chloride 102.0 Carbon Dioxide Anion Gap BUN Creatinine Est GFR ( Amer) Est GFR (Non-Af Amer) Random Glucose Serum Osmolality Calcium Phosphorus Magnesium Total Bilirubin AST ALT Alkaline Phosphatase Ammonia Lactate Dehydrogenase Total Creatine Kinase CK-MB (CK-2) CK-MB (CK-2) % Troponin I Total Protein Albumin Globulin Albumin/Globulin Ratio Arterial Blood Potassium 3.2 L Urine Osmolality Ur Random Creatinine 55 Ur Random Sodium 24 08/04/17 08/04/17 08/04/17 01:00 01:00 03:15 PT INR pCO2 pO2 HCO3 ABG pH ABG Total CO2 ABG O2 Saturation ABG Base Excess ABG Potassium Glucose Lactate Mechanical Rate FiO2 Tidal Volume PEEP Sodium 137 Potassium 3.1 L Chloride 101 Carbon Dioxide 25 Anion Gap 14 BUN 10 Creatinine 0.6 Est GFR ( Amer) > 60 Est GFR (Non-Af Amer) > 60 Random Glucose 102 Serum Osmolality 286 Calcium 8.9 Phosphorus 3.6 Magnesium 1.9 Total Bilirubin 1.6 H AST 94 H D ALT 50 Alkaline Phosphatase 58 Ammonia Lactate Dehydrogenase Total Creatine Kinase 2805 H CK-MB (CK-2) 44.6 H CK-MB (CK-2) % 1.6 L Troponin I Total Protein 7.3 Albumin 4.1 Globulin 3.1 Albumin/Globulin Ratio 1.3 Arterial Blood Potassium Urine Osmolality 166 Ur Random Creatinine Ur Random Sodium 08/04/17 08/04/17 03:15 04:09 PT INR pCO2 pO2 HCO3 ABG pH ABG Total CO2 ABG O2 Saturation ABG Base Excess ABG Potassium Glucose Lactate Mechanical Rate FiO2 Tidal Volume PEEP Sodium 137 Potassium 3.2 L Chloride 105 Carbon Dioxide 24 Anion Gap 11 BUN 9 Creatinine 0.6 Est GFR ( Amer) > 60 Est GFR (Non-Af Amer) > 60 Random Glucose 112 H Serum Osmolality Calcium 7.9 L Phosphorus 2.9 Magnesium 2.2 Total Bilirubin 0.9 AST 78 H ALT 47 Alkaline Phosphatase 50 Ammonia Lactate Dehydrogenase 774 H Total Creatine Kinase 2222 H CK-MB (CK-2) 32.2 H CK-MB (CK-2) % Troponin I < 0.01 Total Protein 6.2 Albumin 3.5 Globulin 2.8 Albumin/Globulin Ratio 1.3 Arterial Blood Potassium Urine Osmolality Ur Random Creatinine Ur Random Sodium 8 EKG/Cardiology Studies: Cardiology / EKG Studies 08/03/17 23:00 EKG [ELECTROCARDIOGRAM] Stat Comment: Reason For Exam: evaluate for QTc prolongation and/or QRS widening 08/04/17 06:29 EKG [ELECTROCARDIOGRAM] Stat Comment: Reason For Exam: Evaluate for QTc and/or QRS prolongations 08/04/17 08:00 EKG [ELECTROCARDIOGRAM] Routine Comment: Reason For Exam: to check QT-QTC Does Patient Have a Pacemaker?: No Review of Systems - Review of Systems Systems not reviewed;Unavailable: Intubated Critical Care Progress Note - Ventilator Checklist Head of Bed 30 Degrees: Yes Daily Sedation Vacation: Yes Daily Assessment of Readiness to Wean: Yes Daily Spontaneous Breathing Trial: Yes PUD Prophalyxis: Yes DVT Prophylaxis: Yes Oral Care with Chlorhexidine Gluconate {CHG}: Yes - Vent Settings MODE:: PRVC TIDAL VOLUME:: 500 RESP RATE:: 16 FIO2:: 40 PEEP:: 5 - Extremities/Vascular Does the Patient have a Central Venous Catheter?: No Does the Patient need a Central Venous Catheter?: No Does the Patient have a Fragoso Catheter?: Yes Does the Patient need a Fragoso Catheter?: Yes Catheter Insertion Criteria: Need for accurate measurement of output in critically ill patient - Restraints Justification for Restraints: High risk for self extubation, High risk for removing IV access, High risk for harming self - Prophylaxis GI Prophylaxis GI: PPI - Prophylaxis DVT Prophylaxis DVT: SCDs Assessment/Plan - Assessment and Plan (Free Text) Assessment: 47M w/AMS intubated/sedated for airway protection Plan: Neuro Intubated sedated on propofol- will d/c Will transition to Precedex Ativan Restraints PRN Sedation vacation Cont 1:1 2/2 agitation Neuro following- ordered EEG, may need MRI if pt continues with agitation Psych following CVS Normotensive Trops neg x 3 Monitor Pulm On [facility] Vent FiO2 40%, RR 16, PEEP 5, TV 400 ABG pH 7.47, pCO2 33, pO2 128, HCO3 24 Will attempt to wean off vent- plan for extubation today O2 PRN GI NPO until extubated Will do swallow eval if extubated & advance diet based on results Fragoso in place 2/2 acute urinary retention I/O Monitor Nephro hyponatremia resolved- Na 137 Hypokalemia- K 3.2 Replaced D5W + 20KCl FU Urine Cl Strict I/O's Monitor Nephro following- ordered Ddavp MSK CK 2222 from 2805 Cont IVF Monitor for skin break down PT eval when extubated ID Afebrile leukocytosis 12 from 15.8 On Flagyl On Rocephin FU Blood cx FU urine cx FU Procalcitonin Monitor GI/DVT ppx Lovenox Protonix Dispo Plan for extubation PT eval when extubated DW attending Arti, PGY-1 - Date & Time Date: 08/04/17 Time: 07:30 <Oneil Waite - Last Filed: 08/04/17 13:03> CCU Objective - Vital Signs / Intake & Output Vital Signs (Last 4 hours): Vital Signs Pulse BP Pulse Ox 08/04/17 12:02 84 144/88 100 08/04/17 12:00 85 99 08/04/17 11:00 87 144/84 99 08/04/17 10:00 86 156/97 H 99 08/04/17 09:00 92 H 161/96 H 98 Intake and Output (Last 8hrs): Intake & Output 08/03/17 08/04/17 08/04/17 22:59 06:59 14:59 Intake Total 172 3215 Output Total 7800 Balance 172 -4585 Weight 209 lb 197 lb 3 oz 197 lb 3 oz Intake: IV 172 865 Left Hand 400 Right Hand 257 Albumin 2350 Output: Urine 7800 Urethral (Fragoso) 7800 Other: Voiding Method Indwelling Catheter Indwelling Catheter Indwelling Catheter # Bowel Movements Urethral (Fragoso) 0 - Medications Active Medications: Active Medications Generic Name Dose Route Start Last Admin Trade Name Freq PRN Reason Stop Dose Admin Enoxaparin Sodium 40 mg 08/04/17 10:00 08/04/17 09:02 Lovenox SC 40 mg DAILY HOOD Administration Protocol Propofol 1,000 mg in 100 mls @ 5.688 mls/hr 08/03/17 20:34 08/04/17 11:05 Diprivan IV 50 mcg/kg/min .[id number] PRN 28.44 mls/hr TITRATE PER MD ORDER Titration Protocol 10 MCG/KG/MIN Metronidazole 500 mg in 100 mls @ 100 mls/hr 08/03/17 23:15 08/04/17 05:05 Flagyl IVPB 100 mls/hr Q8 HOOD Administration Protocol Ceftriaxone Sodium 1 gm in 100 mls @ 100 mls/hr 08/04/17 00:30 08/04/17 09:02 Rocephin 1 Gram Ivpb IVPB 100 mls/hr DAILY HOOD Administration Protocol Potassium Chloride 20 meq/ 1,010 mls @ 100 mls/hr 08/04/17 02:24 08/04/17 02: 52 Dextrose IV 100 mls/hr .[id number] HOOD Administration Dexmedetomidine HCl 400 mcg in 100 mls @ 4.472 mls/hr 08/04/17 09:00 11:05 Precedex 4 Mcg/Ml (100 Ml) IV 0 mcg/kg/hr .[id number] PRN 0 mls/hr Agitation Titration Protocol 0.2 MCG/KG/HR Dextrose 1,000 mls @ 500 mls/hr 08/04/17 10:00 08/04/17 10:53 Dextrose 5% In Water 1000 Ml IV 08/04/17 17:59 500 mls/hr .Q2H HOOD Administration Lorazepam 2 mg 08/03/17 20:09 08/04/17 06:35 Ativan IVP 2 mg Q4H PRN Administration Agitation Protocol Pantoprazole Sodium 40 mg 08/04/17 10:00 08/04/17 09:03 Protonix Inj IVP 40 mg DAILY HOOD Administration - Patient Studies Lab Studies: Lab Studies 08/04/17 08/04/17 08/04/17 Range/Units 11:48 08:50 08:35 WBC 12.0 H D (4.5-11.0) 10^3/ul RBC 4.63 (3.5-6.1) 10^6/uL Hgb 13.5 L (14.0-18.0) g/dL Hct 38.5 L (42.0-52.0) % MCV 83.2 (80.0-105.0) fl MCH 29.2 (25.0-35.0) pg MCHC 35.1 (31.0-37.0) g/dl RDW 13.2 (11.5-14.5) % Plt Count 194 (120.0-450.0) 10^3/uL MPV 10.9 (7.0-11.0) fl PT (9.9-11.8) Seconds INR (0.93-1.08) pCO2 33 L (35-45) mm/Hg pO2 128.0 H (80-100) mm/Hg HCO3 24.0 (21-28) mmol/L ABG pH 7.47 H (7.35-7.45) ABG Total CO2 25.0 (22-28) mmol.L ABG O2 Saturation 99.5 H (95-98) % ABG Base Excess 0.9 (-2.0-3.0) mmol/L ABG Potassium 3.2 L (3.6-5.2) mmol/L Glucose 107 (75-110) mg/dl Lactate 0.5 L (0.7-2.1) mmol/L Mechanical Rate 16 FiO2 40.0 % Tidal Volume 500 PEEP 5 Sodium 131 L 132.0 (132-148) mmol/L Potassium 3.3 L (3.6-5.0) mmol/L Chloride 99 102.0 (98-107) mmol/L Carbon Dioxide 23 (21-33) mmol/L Anion Gap 12 (10-20) BUN 9 (7-21) mg/dL Creatinine 0.6 (0.5-1.4) mg/dL Est GFR ( Amer) > 60 Est GFR (Non-Af Amer) > 60 Random Glucose 167 H (70-110) mg/dL Serum Osmolality (271-296) mosm/kg Calcium 8.3 L (8.4-10.5) mg/dL Phosphorus 2.7 (2.5-4.5) mg/dL Magnesium 2.0 (1.7-2.2) mg/dL Total Bilirubin 0.8 (0.2-1.3) mg/dL AST 66 H (17-59) U/L ALT 44 (7-56) U/L Alkaline Phosphatase 49 (38-126) U/L Ammonia (9-33) umol/L Lactate Dehydrogenase 671 (333-699) U/L Total Creatine Kinase 1352 H (35-230) U/L CK-MB (CK-2) 18.3 H (0.0-3.6) ng/mL CK-MB (CK-2) % 1.4 L (2.5-3.0) % Troponin I < 0.01 ng/mL Total Protein 6.3 (5.8-8.3) g/dL Albumin 3.5 (3.0-4.8) g/dL Globulin 2.9 gm/dL Albumin/Globulin Ratio 1.2 (1.1-1.8) Arterial Blood Potassium 3.2 L (3.6-5.2) mmol/L Urine Osmolality (50-645) mosm/kg Ur Random Creatinine mg/dL Ur Random Sodium meq/L 08/04/17 08/04/17 08/04/17 Range/Units 07:54 04:09 03:15 WBC (4.5-11.0) 10^3/ul RBC (3.5-6.1) 10^6/uL Hgb (14.0-18.0) g/dL Hct (42.0-52.0) % MCV (80.0-105.0) fl MCH (25.0-35.0) pg MCHC (31.0-37.0) g/dl RDW (11.5-14.5) % Plt Count (120.0-450.0) 10^3/uL MPV (7.0-11.0) fl PT (9.9-11.8) Seconds INR (0.93-1.08) pCO2 (35-45) mm/Hg pO2 (80-100) mm/Hg HCO3 (21-28) mmol/L ABG pH (7.35-7.45) ABG Total CO2 (22-28) mmol.L ABG O2 Saturation (95-98) % ABG Base Excess (-2.0-3.0) mmol/L ABG Potassium (3.6-5.2) mmol/L Glucose (75-110) mg/dl Lactate (0.7-2.1) mmol/L Mechanical Rate FiO2 % Tidal Volume PEEP Sodium 134 137 (132-148) mmol/L Potassium 3.2 L 3.2 L (3.6-5.0) mmol/L Chloride 100 105 (98-107) mmol/L Carbon Dioxide 25 24 (21-33) mmol/L Anion Gap 12 11 (10-20) BUN 10 9 (7-21) mg/dL Creatinine 0.6 0.6 (0.5-1.4) mg/dL Est GFR ( Amer) > 60 > 60 Est GFR (Non-Af Amer) > 60 > 60 Random Glucose 97 112 H (70-110) mg/dL Serum Osmolality (271-296) mosm/kg Calcium 8.5 7.9 L (8.4-10.5) mg/dL Phosphorus 2.7 2.9 (2.5-4.5) mg/dL Magnesium 2.1 2.2 (1.7-2.2) mg/dL Total Bilirubin 1.0 0.9 (0.2-1.3) mg/dL AST 81 H 78 H (17-59) U/L ALT 43 47 (7-56) U/L Alkaline Phosphatase 57 50 (38-126) U/L Ammonia (9-33) umol/L Lactate Dehydrogenase 774 H (333-699) U/L Total Creatine Kinase 2222 H (35-230) U/L CK-MB (CK-2) 32.2 H (0.0-3.6) ng/mL CK-MB (CK-2) % (2.5-3.0) % Troponin I < 0.01 ng/mL Total Protein 6.8 6.2 (5.8-8.3) g/dL Albumin 3.8 3.5 (3.0-4.8) g/dL Globulin 3.0 2.8 gm/dL Albumin/Globulin Ratio 1.3 1.3 (1.1-1.8) Arterial Blood Potassium (3.6-5.2) mmol/L Urine Osmolality (50-645) mosm/kg Ur Random Creatinine mg/dL Ur Random Sodium 8 meq/L 08/04/17 08/04/17 08/04/17 Range/Units 03:15 01:00 01:00 WBC (4.5-11.0) 10^3/ul RBC (3.5-6.1) 10^6/uL Hgb (14.0-18.0) g/dL Hct (42.0-52.0) % MCV (80.0-105.0) fl MCH (25.0-35.0) pg MCHC (31.0-37.0) g/dl RDW (11.5-14.5) % Plt Count (120.0-450.0) 10^3/uL MPV (7.0-11.0) fl PT (9.9-11.8) Seconds INR (0.93-1.08) pCO2 (35-45) mm/Hg pO2 (80-100) mm/Hg HCO3 (21-28) mmol/L ABG pH (7.35-7.45) ABG Total CO2 (22-28) mmol.L ABG O2 Saturation (95-98) % ABG Base Excess (-2.0-3.0) mmol/L ABG Potassium (3.6-5.2) mmol/L Glucose (75-110) mg/dl Lactate (0.7-2.1) mmol/L Mechanical Rate FiO2 % Tidal Volume PEEP Sodium 137 (132-148) mmol/L Potassium 3.1 L (3.6-5.0) mmol/L Chloride 101 (98-107) mmol/L Carbon Dioxide 25 (21-33) mmol/L Anion Gap 14 (10-20) BUN 10 (7-21) mg/dL Creatinine 0.6 (0.5-1.4) mg/dL Est GFR ( Amer) > 60 Est GFR (Non-Af Amer) > 60 Random Glucose 102 (70-110) mg/dL Serum Osmolality 286 (271-296) mosm/kg Calcium 8.9 (8.4-10.5) mg/dL Phosphorus 3.6 (2.5-4.5) mg/dL Magnesium 1.9 (1.7-2.2) mg/dL Total Bilirubin 1.6 H (0.2-1.3) mg/dL AST 94 H D (17-59) U/L ALT 50 (7-56) U/L Alkaline Phosphatase 58 (38-126) U/L Ammonia (9-33) umol/L Lactate Dehydrogenase (333-699) U/L Total Creatine Kinase 2805 H (35-230) U/L CK-MB (CK-2) 44.6 H (0.0-3.6) ng/mL CK-MB (CK-2) % 1.6 L (2.5-3.0) % Troponin I ng/mL Total Protein 7.3 (5.8-8.3) g/dL Albumin 4.1 (3.0-4.8) g/dL Globulin 3.1 gm/dL Albumin/Globulin Ratio 1.3 (1.1-1.8) Arterial Blood Potassium (3.6-5.2) mmol/L Urine Osmolality 166 (50-645) mosm/kg Ur Random Creatinine mg/dL Ur Random Sodium meq/L 08/04/17 08/03/17 08/03/17 Range/Units 01:00 22:59 20:42 WBC (4.5-11.0) 10^3/ul RBC (3.5-6.1) 10^6/uL Hgb (14.0-18.0) g/dL Hct (42.0-52.0) % MCV (80.0-105.0) fl MCH (25.0-35.0) pg MCHC (31.0-37.0) g/dl RDW (11.5-14.5) % Plt Count (120.0-450.0) 10^3/uL MPV (7.0-11.0) fl PT 11.8 (9.9-11.8) Seconds INR 1.09 H (0.93-1.08) pCO2 38 (35-45) mm/Hg pO2 199.0 H (80-100) mm/Hg HCO3 25.2 (21-28) mmol/L ABG pH 7.43 (7.35-7.45) ABG Total CO2 26.4 (22-28) mmol.L ABG O2 Saturation 99.8 H (95-98) % ABG Base Excess 1.0 (-2.0-3.0) mmol/L ABG Potassium 3.2 L (3.6-5.2) mmol/L Glucose 99 (75-110) mg/dl Lactate 0.8 (0.7-2.1) mmol/L Mechanical Rate 16 FiO2 60.0 % Tidal Volume 500 PEEP 5 Sodium 136.0 (132-148) mmol/L Potassium (3.6-5.0) mmol/L Chloride 102.0 (98-107) mmol/L Carbon Dioxide (21-33) mmol/L Anion Gap (10-20) BUN (7-21) mg/dL Creatinine (0.5-1.4) mg/dL Est GFR ( Amer) Est GFR (Non-Af Amer) Random Glucose (70-110) mg/dL Serum Osmolality (271-296) mosm/kg Calcium (8.4-10.5) mg/dL Phosphorus (2.5-4.5) mg/dL Magnesium (1.7-2.2) mg/dL Total Bilirubin (0.2-1.3) mg/dL AST (17-59) U/L ALT (7-56) U/L Alkaline Phosphatase (38-126) U/L Ammonia (9-33) umol/L Lactate Dehydrogenase (333-699) U/L Total Creatine Kinase (35-230) U/L CK-MB (CK-2) (0.0-3.6) ng/mL CK-MB (CK-2) % (2.5-3.0) % Troponin I ng/mL Total Protein (5.8-8.3) g/dL Albumin (3.0-4.8) g/dL Globulin gm/dL Albumin/Globulin Ratio (1.1-1.8) Arterial Blood Potassium 3.2 L (3.6-5.2) mmol/L Urine Osmolality (50-645) mosm/kg Ur Random Creatinine 55 mg/dL Ur Random Sodium 24 meq/L 08/03/17 08/03/17 08/03/17 Range/Units 20:42 20:42 20:40 WBC (4.5-11.0) 10^3/ul RBC (3.5-6.1) 10^6/uL Hgb (14.0-18.0) g/dL Hct (42.0-52.0) % MCV (80.0-105.0) fl MCH (25.0-35.0) pg MCHC (31.0-37.0) g/dl RDW (11.5-14.5) % Plt Count (120.0-450.0) 10^3/uL MPV (7.0-11.0) fl PT (9.9-11.8) Seconds INR (0.93-1.08) pCO2 (35-45) mm/Hg pO2 (80-100) mm/Hg HCO3 (21-28) mmol/L ABG pH (7.35-7.45) ABG Total CO2 (22-28) mmol.L ABG O2 Saturation (95-98) % ABG Base Excess (-2.0-3.0) mmol/L ABG Potassium (3.6-5.2) mmol/L Glucose (75-110) mg/dl Lactate (0.7-2.1) mmol/L Mechanical Rate FiO2 % Tidal Volume PEEP Sodium 129 L (132-148) mmol/L Potassium 2.9 L* (3.6-5.0) mmol/L Chloride 95 L (98-107) mmol/L Carbon Dioxide 23 (21-33) mmol/L Anion Gap 14 (10-20) BUN 14 (7-21) mg/dL Creatinine 0.6 (0.5-1.4) mg/dL Est GFR ( Amer) > 60 Est GFR (Non-Af Amer) > 60 Random Glucose 107 (70-110) mg/dL Serum Osmolality (271-296) mosm/kg Calcium 7.9 L (8.4-10.5) mg/dL Phosphorus (2.5-4.5) mg/dL Magnesium (1.7-2.2) mg/dL Total Bilirubin 1.4 H (0.2-1.3) mg/dL AST 67 H D (17-59) U/L ALT 32 (7-56) U/L Alkaline Phosphatase 52 (38-126) U/L Ammonia 12 (9-33) umol/L Lactate Dehydrogenase 944 H (333-699) U/L Total Creatine Kinase 1958 H (35-230) U/L CK-MB (CK-2) 29.1 H (0.0-3.6) ng/mL CK-MB (CK-2) % (2.5-3.0) % Troponin I < 0.01 ng/mL Total Protein 6.7 (5.8-8.3) g/dL Albumin 3.8 (3.0-4.8) g/dL Globulin 2.9 gm/dL Albumin/Globulin Ratio 1.3 (1.1-1.8) Arterial Blood Potassium (3.6-5.2) mmol/L Urine Osmolality 318 (50-645) mosm/kg Ur Random Creatinine mg/dL Ur Random Sodium meq/L Laboratory Results - last 24 hr 08/03/17 08/03/17 08/03/17 20:40 20:42 20:42 WBC RBC Hgb Hct MCV MCH MCHC RDW Plt Count MPV PT INR pCO2 pO2 HCO3 ABG pH ABG Total CO2 ABG O2 Saturation ABG Base Excess ABG Potassium Glucose Lactate Mechanical Rate FiO2 Tidal Volume PEEP Sodium 129 L Potassium 2.9 L* Chloride 95 L Carbon Dioxide 23 Anion Gap 14 BUN 14 Creatinine 0.6 Est GFR ( Amer) > 60 Est GFR (Non-Af Amer) > 60 Random Glucose 107 Serum Osmolality Calcium 7.9 L Phosphorus Magnesium Total Bilirubin 1.4 H AST 67 H D ALT 32 Alkaline Phosphatase 52 Ammonia 12 Lactate Dehydrogenase 944 H Total Creatine Kinase 1958 H CK-MB (CK-2) 29.1 H CK-MB (CK-2) % Troponin I < 0.01 Total Protein 6.7 Albumin 3.8 Globulin 2.9 Albumin/Globulin Ratio 1.3 Arterial Blood Potassium Urine Osmolality 318 Ur Random Creatinine Ur Random Sodium 08/03/17 08/03/17 08/04/17 20:42 22:59 01:00 WBC RBC Hgb Hct MCV MCH MCHC RDW Plt Count MPV PT 11.8 INR 1.09 H pCO2 38 pO2 199.0 H HCO3 25.2 ABG pH 7.43 ABG Total CO2 26.4 ABG O2 Saturation 99.8 H ABG Base Excess 1.0 ABG Potassium 3.2 L Glucose 99 Lactate 0.8 Mechanical Rate 16 FiO2 60.0 Tidal Volume 500 PEEP 5 Sodium 136.0 Potassium Chloride 102.0 Carbon Dioxide Anion Gap BUN Creatinine Est GFR ( Amer) Est GFR (Non-Af Amer) Random Glucose Serum Osmolality Calcium Phosphorus Magnesium Total Bilirubin AST ALT Alkaline Phosphatase Ammonia Lactate Dehydrogenase Total Creatine Kinase CK-MB (CK-2) CK-MB (CK-2) % Troponin I Total Protein Albumin Globulin Albumin/Globulin Ratio Arterial Blood Potassium 3.2 L Urine Osmolality Ur Random Creatinine 55 Ur Random Sodium 24 08/04/17 08/04/17 08/04/17 01:00 01:00 03:15 WBC RBC Hgb Hct MCV MCH MCHC RDW Plt Count MPV PT INR pCO2 pO2 HCO3 ABG pH ABG Total CO2 ABG O2 Saturation ABG Base Excess ABG Potassium Glucose Lactate Mechanical Rate FiO2 Tidal Volume PEEP Sodium 137 Potassium 3.1 L Chloride 101 Carbon Dioxide 25 Anion Gap 14 BUN 10 Creatinine 0.6 Est GFR ( Amer) > 60 Est GFR (Non-Af Amer) > 60 Random Glucose 102 Serum Osmolality 286 Calcium 8.9 Phosphorus 3.6 Magnesium 1.9 Total Bilirubin 1.6 H AST 94 H D ALT 50 Alkaline Phosphatase 58 Ammonia Lactate Dehydrogenase Total Creatine Kinase 2805 H CK-MB (CK-2) 44.6 H CK-MB (CK-2) % 1.6 L Troponin I Total Protein 7.3 Albumin 4.1 Globulin 3.1 Albumin/Globulin Ratio 1.3 Arterial Blood Potassium Urine Osmolality 166 Ur Random Creatinine Ur Random Sodium 08/04/17 08/04/17 08/04/17 03:15 04:09 07:54 WBC RBC Hgb Hct MCV MCH MCHC RDW Plt Count MPV PT INR pCO2 pO2 HCO3 ABG pH ABG Total CO2 ABG O2 Saturation ABG Base Excess ABG Potassium Glucose Lactate Mechanical Rate FiO2 Tidal Volume PEEP Sodium 137 134 Potassium 3.2 L 3.2 L Chloride 105 100 Carbon Dioxide 24 25 Anion Gap 11 12 BUN 9 10 Creatinine 0.6 0.6 Est GFR ( Amer) > 60 > 60 Est GFR (Non-Af Amer) > 60 > 60 Random Glucose 112 H 97 Serum Osmolality Calcium 7.9 L 8.5 Phosphorus 2.9 2.7 Magnesium 2.2 2.1 Total Bilirubin 0.9 1.0 AST 78 H 81 H ALT 47 43 Alkaline Phosphatase 50 57 Ammonia Lactate Dehydrogenase 774 H Total Creatine Kinase 2222 H CK-MB (CK-2) 32.2 H CK-MB (CK-2) % Troponin I < 0.01 Total Protein 6.2 6.8 Albumin 3.5 3.8 Globulin 2.8 3.0 Albumin/Globulin Ratio 1.3 1.3 Arterial Blood Potassium Urine Osmolality Ur Random Creatinine Ur Random Sodium 8 08/04/17 08/04/17 08/04/17 08:35 08:50 11:48 WBC 12.0 H D RBC 4.63 Hgb 13.5 L Hct 38.5 L MCV 83.2 MCH 29.2 MCHC 35.1 RDW 13.2 Plt Count 194 MPV 10.9 PT INR pCO2 33 L pO2 128.0 H HCO3 24.0 ABG pH 7.47 H ABG Total CO2 25.0 ABG O2 Saturation 99.5 H ABG Base Excess 0.9 ABG Potassium 3.2 L Glucose 107 Lactate 0.5 L Mechanical Rate 16 FiO2 40.0 Tidal Volume 500 PEEP 5 Sodium 132.0 131 L Potassium 3.3 L Chloride 102.0 99 Carbon Dioxide 23 Anion Gap 12 BUN 9 Creatinine 0.6 Est GFR ( Amer) > 60 Est GFR (Non-Af Amer) > 60 Random Glucose 167 H Serum Osmolality Calcium 8.3 L Phosphorus 2.7 Magnesium 2.0 Total Bilirubin 0.8 AST 66 H ALT 44 Alkaline Phosphatase 49 Ammonia Lactate Dehydrogenase 671 Total Creatine Kinase 1352 H CK-MB (CK-2) 18.3 H CK-MB (CK-2) % 1.4 L Troponin I < 0.01 Total Protein 6.3 Albumin 3.5 Globulin 2.9 Albumin/Globulin Ratio 1.2 Arterial Blood Potassium 3.2 L Urine Osmolality Ur Random Creatinine Ur Random Sodium EKG/Cardiology Studies: Cardiology / EKG Studies 08/03/17 23:00 EKG [ELECTROCARDIOGRAM] Stat Comment: Reason For Exam: evaluate for QTc prolongation and/or QRS widening 08/04/17 06:29 EKG [ELECTROCARDIOGRAM] Stat Comment: Reason For Exam: Evaluate for QTc and/or QRS prolongations Assessment/Plan - Assessment and Plan (Free Text) Plan: Patient seen and examine don rounds with resident, agree with note. Patient is 47yo male with PMhx of Schizophrenia, on anti-psychotics who presented to the Er complaining of Abd pain, diarrhea, subsequently became agitated,aggressive, not protecting airway, intubated for airway protection, currently the patient is intubated and sedated. Highly unlikely for NMS syndrome or serotonin syndorme, as patient afebrile, HD stable, no rigidity or clonus, hyperreflexia. Hyponatremia AMS Leukocytosis Rhabdo Recommend: - wean of Propofol, transition to Precedex - wean off ventilator, possible extubation later on today - Neurology follow up - EEG - may need MRI brain - monitor eletrolytes - Na on presentation 121, goal correction 8meq/24hr, start on D5W boluses as per renal - follow up cultures - IV abx for enteritis/colitis - check procalcitonin - GI ppx - DVT ppx - Psych eval once extubated critical care time 35 minutes
[2017-08-04 08:06] LABS: ALB/GLOB RATIO 1.3 (1.1-1.8); ALKALINE PHOSPHATASE 57 U/L (38-126); ALT/SGPT 43 U/L (7-56); AST/SGOT 81 U/L (17-59); BLOOD UREA NITROGEN 10 mg/dL (7-21); CALCIUM 8.5 mg/dL (8.4-10.5); CARBON DIOXIDE 25 mmol/L (21-33); CHLORIDE 100 mmol/L (98-107); GFR AFRICAN-AMERICAN > 60; GLUCOSE,RANDOM 97 mg/dL (70-110); MAGNESIUM 2.1 mg/dL (1.7-2.2); PHOSPHOROUS 2.7 mg/dL (2.5-4.5); POTASSIUM 3.2 mmol/L (3.6-5.0); SODIUM 134 mmol/L (132-148); TOTAL PROTEIN 6.8 g/dL (5.8-8.3)
[2017-08-04 08:43] LABS: ABG MECHANICAL RATE 16; ARTERIAL BLOOD GAS PH 7.47 (7.35-7.45); ATERIAL BLOOD GAS PEEP 5
[2017-08-04] MEDS ORDERED: Dexmedetomidine HCl 4mcg/ml 400 MCG/100 ML BOTTLE IV PRN (09:00)
[2017-08-04] MEDS: Enoxaparin 40 mg Syringe SC SCH (09:02)
[2017-08-04 09:29] LABS: HEMATOCRIT 38.5 % (42.0-52.0); MEAN CELL VOLUME 83.2 fl (80.0-105.0); MEAN CORPUSCULAR HEMOGLOBIN 29.2 pg (25.0-35.0); MEAN CORPUSCULAR HGB CONC 35.1 g/dl (31.0-37.0); MEAN PLATELET VOLUME 10.9 fl (7.0-11.0); RED CELL DISTRIBUTION WIDTH 13.2 % (11.5-14.5)
--- NOTE | 2017-08-04 11:42 | CP.PCM.PN ---
<Jethro Abdi - Last Filed: 08/04/17 11:26> Subjective - Date & Time of Evaluation Date of Evaluation: 08/04/17 Time of Evaluation: 11:43 - Subjective Subjective: Patient has been seen and examined at bedside. Patient currently sedated. Vital signs are stable. Arousable to tactile stimulation. ROS unobtainable due to sedation. Objective - Vital Signs/Intake and Output Vital Signs (last 24 hours): Temp Pulse Resp BP Pulse Ox 98.6 F 76 16 149/95 H 99 08/03/17 21:43 08/04/17 05:10 08/04/17 07:49 08/04/17 05:00 08/04/17 07:49 Intake and Output: 08/04/17 08/04/17 06:59 18:59 Intake Total 172 3215 Output Total 7800 Balance 172 -4585 - Medications Medications: Current Medications Enoxaparin Sodium (Lovenox) 40 mg SC DAILY HOOD PRN Reason: Protocol Last Admin: 08/04/17 09:02 Dose: 40 mg Propofol (Diprivan) 1,000 mg in 100 mls @ 5.688 mls/hr IV .[id number] PRN; Protocol; 10 MCG/KG/MIN PRN Reason: TITRATE PER MD ORDER Last Titration: 08/04/17 11:05 Dose: 87.9 mcg/kg/min, 50 mls/hr Metronidazole (Flagyl) 500 mg in 100 mls @ 100 mls/hr IVPB Q8 HOOD PRN Reason: Protocol Last Admin: 08/04/17 05:05 Dose: 100 mls/hr Ceftriaxone Sodium (Rocephin 1 Gram Ivpb) 1 gm in 100 mls @ 100 mls/hr IVPB DAILY HOOD PRN Reason: Protocol Last Admin: 08/04/17 09:02 Dose: 100 mls/hr Potassium Chloride 20 meq/ (Dextrose) 1,010 mls @ 100 mls/hr IV .[id number] [facility] Last Admin: 08/04/17 02:52 Dose: 100 mls/hr Dexmedetomidine HCl (Precedex 4 Mcg/Ml (100 Ml)) 400 mcg in 100 mls @ 4.472 mls /hr IV .[id number] PRN; Protocol; 0.2 MCG/KG/HR PRN Reason: Agitation Last Titration: 08/04/17 11:05 Dose: 0 mcg/kg/hr, 0 mls/hr Dextrose (Dextrose 5% In Water 1000 Ml) 1,000 mls @ 500 mls/hr IV .Q2H HOOD Stop: 08/04/17 17:59 Last Admin: 08/04/17 10:53 Dose: 500 mls/hr Lorazepam (Ativan) 2 mg IVP Q4H PRN; Protocol PRN Reason: Agitation Last Admin: 08/04/17 06:35 Dose: 2 mg Pantoprazole Sodium (Protonix Inj) 40 mg IVP DAILY HOOD Last Admin: 08/04/17 09:03 Dose: 40 mg - Labs Labs: 08/04/17 08:50 08/04/17 07:54 PT 11.8 Seconds (9.9-11.8) 08/04/17 01:00 INR 1.09 (0.93-1.08) H 08/04/17 01:00 - Head Exam Head Exam: ATRAUMATIC, NORMOCEPHALIC - Eye Exam Eye Exam: Normal appearance Pupil Exam: absent: Fixed - Respiratory Exam Respiratory Exam: Clear to Ausculation Bilateral, NORMAL BREATHING PATTERN. absent: Rales, Rhonchi, Wheezes Additional comments: Intubated - Cardiovascular Exam Cardiovascular Exam: RRR, +S1, +S2 - GI/Abdominal Exam GI & Abdominal Exam: Soft, Normal Bowel Sounds. absent: Tenderness, Organomegaly - Extremities Exam Extremities Exam: Normal Capillary Refill. absent: Pedal Edema Additional comments: extremities cool; pedal pulses palpable - Skin Skin Exam: Dry, Intact, Normal Color Assessment and Plan - Assessment and Plan (Free Text) Assessment: 47 yo male with PMH of schizophrenia, HTN, herniated disk presented with AMS, hyponatremia, hypokalemia. Intubated in ED for airway protection. Plan: 1. Airway Management -Currently intubated for airway protection. On propofol (28.5ml per hour) -Plan to extubate today. Precedex started today (4.8ml per hour) 2. AMS 2/2 Alcohol withdrawal or intoxication vs opioid withdrawal or intoxication vs. Psychosis 2/2 to Schizophrenia -Ativan PRN -Psych Consult -Risperidone/Paxil/Trazodone Held. -Currently in re 3. Acute Gastritis -Rocephin (200ml/hr)/Flagyl -WBC reduced to 12.0 today from 15. 8 GI/DVT Proph Protonix/Lovenox Dispo: Attempted to call Tiffany Cristobal today (Mother). Home phone listed in chart was her old workplace which she retired from. Other Phone number listed does not work. Will ask patient more information when he is AAOx3. Patient seen, reviewed, and examined with Attending Jethro Abdi PGY1 <Peg Rodrigues - Last Filed: 08/05/17 07:18> Objective - Vital Signs/Intake and Output Vital Signs (last 24 hours): Temp Pulse Resp BP Pulse Ox 98.7 F 73 17 141/89 94 L 08/05/17 04:00 08/05/17 04:00 08/05/17 04:00 08/05/17 04:00 08/05/17 04:00 Intake and Output: 08/05/17 08/05/17 06:59 18:59 Intake Total 420 Output Total 2700 Balance -2280 - Medications Medications: Current Medications Benzocaine/Menthol (Cepacol Sore Throat) 1 chas MT Q2H PRN PRN Reason: Sore Throat Enoxaparin Sodium (Lovenox) 40 mg SC DAILY HOOD PRN Reason: Protocol Last Admin: 08/04/17 09:02 Dose: 40 mg Propofol (Diprivan) 1,000 mg in 100 mls @ 5.688 mls/hr IV .[id number] PRN; Protocol; 10 MCG/KG/MIN PRN Reason: TITRATE PER MD ORDER Last Titration: 08/04/17 15:30 Dose: 0 mcg/kg/min, 0 mls/hr Metronidazole (Flagyl) 500 mg in 100 mls @ 100 mls/hr IVPB Q8 HOOD PRN Reason: Protocol Last Admin: 08/05/17 05:20 Dose: 100 mls/hr Ceftriaxone Sodium (Rocephin 1 Gram Ivpb) 1 gm in 100 mls @ 100 mls/hr IVPB DAILY HOOD PRN Reason: Protocol Last Admin: 08/04/17 09:02 Dose: 100 mls/hr Dexmedetomidine HCl (Precedex 4 Mcg/Ml (100 Ml)) 400 mcg in 100 mls @ 4.472 mls /hr IV .[id number] PRN; Protocol; 0.2 MCG/KG/HR PRN Reason: Agitation Last Titration: 08/04/17 16:46 Dose: 0 mcg/kg/hr, 0 mls/hr Lorazepam (Ativan) 2 mg IVP Q4H PRN; Protocol PRN Reason: Agitation Last Admin: 08/04/17 06:35 Dose: 2 mg Pantoprazole Sodium (Protonix Inj) 40 mg IVP DAILY HOOD Last Admin: 08/04/17 09:03 Dose: 40 mg - Labs Labs: 08/05/17 06:01 08/05/17 06:01 PT 11.8 Seconds (9.9-11.8) 08/04/17 01:00 INR 1.09 (0.93-1.08) H 08/04/17 01:00 Attending/Attestation - Attestation I have personally seen and examined this patient.: Yes I have fully participated in the care of the patient.: Yes I have reviewed all pertinent clinical information, including history, physical exam and plan: Yes Notes (Text): 08/05/17 07:13 Attending note; Patient seen and examined with resident in ICU. Patient is a 47-year-old male with a history of psychiatric disorder is admitted with agitation and intubated for airway protection. Continue vent management per medical receptionist. Weaning process per protocol. Hyponatremia; corrected now. Monitor closely. Nephrology evaluation requested. Agitation/restlessness; possible drug abuse versus psychiatric disorder. We'll get psych evaluation. call next of kin's phone number. unable to contact family. Monitor closely in ICU. Case discussed with medical receptionist in detail. 08/05/17 07:18
[2017-08-04 12:06] LABS: ALB/GLOB RATIO 1.2 (1.1-1.8); ALKALINE PHOSPHATASE 49 U/L (38-126); ALT/SGPT 44 U/L (7-56); AST/SGOT 66 U/L (17-59); BILIRUBIN,TOTAL 0.8 mg/dL (0.2-1.3); BLOOD UREA NITROGEN 9 mg/dL (7-21); CALCIUM 8.3 mg/dL (8.4-10.5); CARBON DIOXIDE 23 mmol/L (21-33); CHLORIDE 99 mmol/L (98-107); GFR AFRICAN-AMERICAN > 60; GLUCOSE,RANDOM 167 mg/dL (70-110); PHOSPHOROUS 2.7 mg/dL (2.5-4.5); POTASSIUM 3.3 mmol/L (3.6-5.0); SODIUM 131 mmol/L (132-148); TOTAL PROTEIN 6.3 g/dL (5.8-8.3)
[2017-08-04 12:18] LABS: TROPONIN I < 0.01 ng/mL
--- NOTE | 2017-08-04 15:20 | CON ---
IDENTIFYING INFORMATION: The patient is a 47-year-old white male who initially presented to the emergency room with abdominal pain, but who became agitated and was sedated with propofol. He is now being seen in the Intensive Care Unit, on ventilatory assistance. I reviewed the chart and case discussed with resident. The patient had been hospitalized at [facility] this past January, reportedly for the first time, and was given a diagnosis then of schizophrenia. He had reasons not entirely clear, just prior to that been seen by Dr. Daly and put on amitriptyline. During his last hospital stay, he was put on Risperdal. His level of compliance is unclear. I have tried to reach the patient's mother listed on the Face sheet, but the number provided is the [employer] where she had worked but no longer. Thus, we had no immediate means of contacting his mother. The patient is not agitated presently because he is under the influence of propofol. There appears to be no substance abuse. IMPRESSION AND PLAN: The patient will be more meaningfully interviewed and assessed upon his rekindling from his present state of chemical-induced restraint with propofol. Diagnosis is uncertain. While he carries a diagnosis of schizophrenia, this, if it is correct, is of late onset, which is unusual but not impossible. He also carries with him a diagnosis of posttraumatic stress disorder for reasons uncertain at this time. We will continue to monitor with you. Thank you for this consultation. Raymundo Chavez MD/ PhD
--- NOTE | 2017-08-04 16:00 | CON ---
DATE: NEUROLOGY CONSULTATION REPORT REASON FOR CONSULTATION: Increasing altered mental status. HISTORY OF PRESENT ILLNESS: The patient is a 47-year-old male who was brought to the emergency room with nausea, vomiting, diarrhea, and abdominal pain, started about two hours prior to arrival to the emergency room. The patient is intubated on a ventilator at the movement. History is mainly from the chart. Apparently, the patient admitted to taking oxycodone and remembered he took it. He also admitted taking marijuana. The patient has history of schizophrenia. The patient was apparently intubated for airway protection. History is mainly from the chart. The patient received multiple doses of Benadryl, Haldol, and Ativan in the emergency room. Because of his agitation and to protect his airway, he was intubated and sedated. REVIEW OF SYSTEMS: Unable to obtain because of the patient's current status. PAST MEDICAL HISTORY: Includes schizophrenia, hypertension, and herniated disc. PAST SURGICAL HISTORY: Include umbilical hernia repair. SOCIAL HISTORY: The patient is a light smoker. Does not use alcohol. Does use marijuana. MEDICATIONS: Her medications at home included oxycodone, Norvasc, Paxil, Zestril, Risperdal, and Desyrel. ALLERGIES: NO KNOW DRUG ALLERGIES. FAMILY HISTORY: Unknown. PHYSICAL EXAMINATION: GENERAL: The patient is a middle-aged male, lying on the bed, in no acute distress. VITAL SIGNS: His blood pressure is 155/97, heart rate is 90 per minute, he is breathing at the rate of 12 per minute on a ventilator and his temperature is afebrile. HEENT: Head is normocephalic and atraumatic. NECK: Supple. There are no carotid bruits. LUNGS: Clear. CARDIOVASCULAR: S1 and S2 audible. No murmurs. ABDOMEN: Soft and nontender. Bowel sounds are present. NEUROLOGIC: Mental status; the patient is sedated on Diprivan. Cranial nerve exam: Pupils are 3 mm minimally reactive to light. There is positive Doll's eye movement. No facial asymmetry is noted. Motor examination: Tone is normal. He is withdrawing all four extremities to noxious painful stimuli. Reflexes 1+ and symmetrical. Plantars downgoing bilaterally. Sensory examination: He withdraws his extremities to painful stimuli. Gait is untestable. LABORATORY DATA: Labs were reviewed. Shows WBC of 15.8 on arrival to the emergency room, this morning it is 12.0, hemoglobin of 13.5, hematocrit of 38.5, and platelets of 194. His sodium is 134, potassium 3.2, chloride 100, carbon dioxide content of 25, BUN of 10, creatinine of 0.6, and glucose of 97. His sodium on arrival to the emergency room was 121. His urine toxicology screen is positive for opiates. The patient is on oxycodone. He had CT scan of the head done, which shows no acute intracranial hemorrhage or suspicious mass effect. IMPRESSION: 1. Altered mental status which is likely secondary to toxic metabolic encephalopathy. 2. Hyponatremia, which is improving. 3. Respiratory failure on ventilator. RECOMMENDATIONS: 1. The patient to have an electroencephalogram. 2. The patient remained agitated and mental status is altered, consider also obtaining, MRI of the brain without contrast. 3. The patient to be continued on IV antibiotics. 4. We will be able to better evaluate the mental status, once the patient is off sedation. 5. The patient to have an electroencephalogram. 6. Please continue supportive care and the treatment. Thank you for the opportunity to participate in the care of this patient. Radha Coto MD
[2017-08-04 16:12] LABS: BLOOD UREA NITROGEN 8 mg/dL (7-21); CALCIUM 8.3 mg/dL (8.4-10.5); CARBON DIOXIDE 24 mmol/L (21-33); CHLORIDE 97 mmol/L (98-107); GFR AFRICAN-AMERICAN > 60; GLUCOSE,RANDOM 79 mg/dL (70-110); POTASSIUM 3.5 mmol/L (3.6-5.0); SODIUM 128 mmol/L (132-148)
--- NOTE | 2017-08-04 17:02 | CP.PCM.PN ---
Subjective - Date & Time of Evaluation Date of Evaluation: 08/04/17 Time of Evaluation: 17:01 - Subjective Subjective: Patient weaned off sedation, Propofol, onto Precedex, was awake, alert, following commands, doing well on Pressure Support. Extubated onto 2LNC, doing well, sat 100%. No major complaints. Will DC mendieta. Repeat Na 128, will notify renal, for further recs. Objective - Vital Signs/Intake and Output Vital Signs (last 24 hours): Temp Pulse Resp BP Pulse Ox 99.9 F H 73 16 144/88 100 08/04/17 16:00 08/04/17 16:00 08/04/17 07:49 08/04/17 12:02 08/04/17 12:02 Intake and Output: 08/04/17 08/04/17 06:59 18:59 Intake Total 172 3347 Output Total 7800 Balance 172 -4453 - Medications Medications: Current Medications Enoxaparin Sodium (Lovenox) 40 mg SC DAILY HOOD PRN Reason: Protocol Last Admin: 08/04/17 09:02 Dose: 40 mg Propofol (Diprivan) 1,000 mg in 100 mls @ 5.688 mls/hr IV .[id number] PRN; Protocol; 10 MCG/KG/MIN PRN Reason: TITRATE PER MD ORDER Last Titration: 08/04/17 15:30 Dose: 0 mcg/kg/min, 0 mls/hr Metronidazole (Flagyl) 500 mg in 100 mls @ 100 mls/hr IVPB Q8 HOOD PRN Reason: Protocol Last Admin: 08/04/17 13:22 Dose: 100 mls/hr Ceftriaxone Sodium (Rocephin 1 Gram Ivpb) 1 gm in 100 mls @ 100 mls/hr IVPB DAILY HOOD PRN Reason: Protocol Last Admin: 08/04/17 09:02 Dose: 100 mls/hr Dexmedetomidine HCl (Precedex 4 Mcg/Ml (100 Ml)) 400 mcg in 100 mls @ 4.472 mls /hr IV .[id number] PRN; Protocol; 0.2 MCG/KG/HR PRN Reason: Agitation Last Titration: 08/04/17 16:46 Dose: 0 mcg/kg/hr, 0 mls/hr Lorazepam (Ativan) 2 mg IVP Q4H PRN; Protocol PRN Reason: Agitation Last Admin: 08/04/17 06:35 Dose: 2 mg Pantoprazole Sodium (Protonix Inj) 40 mg IVP DAILY HOOD Last Admin: 08/04/17 09:03 Dose: 40 mg - Labs Labs: 08/04/17 08:50 08/04/17 15:56 PT 11.8 Seconds (9.9-11.8) 08/04/17 01:00 INR 1.09 (0.93-1.08) H 08/04/17 01:00
[2017-08-04] MEDS ORDERED: Benzocaine/Menthol (Cepacol) Lozenge MT PRN (17:48)
--- NOTE | 2017-08-04 19:39 | CON ---
DATE: NEPHROLOGY CONSULTATION HISTORY OF PRESENT ILLNESS: A 47-year-old male with past medical history of schizophrenia, hypertension, herniated disk, presented to the ED with nausea, vomiting and abdominal pain. The patient was found to be very agitated in the ED with tachycardia and diaphoresis. The patient had to be given multiple doses of Benadryl, Haldol and Ativan for his agitation. The patient was subsequently intubated for airway protection. The patient found to be hyponatremic on presentation with serum sodium of 121. Sodium donato abruptly to 137 by early this morning. Nephrology being consulted for hyponatremia. The patient is currently intubated, sedated, unable to obtain further information. CT abdomen and pelvis done in ED consistent with acute enteritis. The patient was given normal saline on presentation. The patient received one liter of bolus on presentation. The patient subsequently had normal saline ordered at 125 mL per hour, but unclear how much he got. Repeat serum sodium done about 3-1/2 hours after presentation showed acute rise in serum sodium from 121 to 129. Subsequent BMP done approximately 4 hours after that showed serum sodium rising to 137. The patient was given desmopressin 2 mcg early this morning and given D5 boluses two times with serum sodium decreasing to 134 by this morning. PAST MEDICAL HISTORY: As above. SOCIAL HISTORY: Taken from chart, light smoker. FAMILY HISTORY: Unknown. REVIEW OF SYSTEMS: Unable to obtain as the patient is intubated, sedated. PHYSICAL EXAMINATION: VITAL SIGNS: This morning, blood pressure 149/95, heart rate 76, respiration 16, O2 saturation 99% on 40% FiO2 via mechanical ventilation. GENERAL: Sedated, appears mildly agitated. HEENT: Moist mucous membranes. Nonicteric. RESPIRATORY: Lungs clear to auscultation bilaterally. No rales. No rhonchi. No wheezes. HEART: S1 and S2 normal. No murmurs. No gallops. No rubs. ABDOMEN: Soft, nondistended. GENITOURINARY: No bladder distention. EXTREMITIES: No leg edema. SKIN: Warm to touch. No cyanosis of distal extremities. NEUROLOGIC: Sedated. Responds to tactile stimulus. HEMATOLOGIC: No cervical lymphadenopathy. Peripheral pulses, 1+ bilateral dorsalis pedis pulses. No carotid bruit present. LABORATORY DATA: This morning, CBC: WBC 12.0, hemoglobin 13.5, hematocrit 38.5, platelets 194. Chemistry panel: Sodium 134, potassium 3.2, chloride 100, bicarbonate 25, BUN 10, creatinine 0.6, glucose 95, calcium 8.5, phosphorus 2.7. Albumin 3.8. CK level 2222, decreased from 2805 earlier this morning. Chest x-ray: Lungs appear clear.. ASSESSMENT AND PLAN: 1. Hyponatremia, consistent with hyponatremia that is secondary to volume depletion, rapid rise in urine serum sodium after being given IV fluids consistent with this diagnosis as once the volume deficit was corrected, urine osmolality dropped precipitously (down to 156), at which time serum sodium abruptly donato. We will need to bring down serum sodium quickly osmotic demyelination. Our goal is increase the serum sodium no more than 60 mEq 24 hours (i.e., from the point of presentation). Giving desmopressin 4 mcg right now. Starting D5W at 500 mL per hour x4 hours. We will recheck BMP late this afternoon. 2. Hypokalemia, maybe secondary to GI loses. Continue to supplement as needed. 3. Rhabdomyolysis, relatively mild in the setting of agitation. CK level already improving. If CK level starts trending upward, will need to be placed back on saline-containing fluid to avoid any renal injury. Davion Mejias MD
[2017-08-04] MEDS ORDERED: Sodium Chloride 3% 500 ML IV SCH (19:45)
--- NOTE | 2017-08-04 22:53 | CARD ---
APPROVED REPORT EKG Measurement Heart [id number] [place] [id number] <Conclusion> Normal sinus rhythm Left anterior fascicular block Abnormal ECG
--- NOTE | 2017-08-04 23:28 | CARD ---
APPROVED REPORT EKG Measurement Heart [id number] [place] [id number] <Conclusion> Normal sinus rhythm Right atrial enlargement Left anterior fascicular block Abnormal ECG
--- NOTE | 2017-08-04 23:31 | CARD ---
APPROVED REPORT EKG Measurement Heart [id number] DC 160P68 [id number] <Conclusion> Poor data quality, interpretation may be adversely affected Normal sinus rhythm Right atrial enlargement Left anterior fascicular block Prolonged QT Abnormal ECG
--- NOTE | 2017-08-05 00:25 | CARD ---
APPROVED REPORT EKG Measurement Heart [id number] [place] 170P62 [id number] <Conclusion> Normal sinus rhythm Left anterior fascicular block Prolonged QT Abnormal ECG
[2017-08-05] MEDS: metroNIDAZOLE IV 500 mg/100 ml 500 MG/100 ML BAG IVPB SCH ×3 (05:20→21:19)
[2017-08-05 06:19] LABS: CHLORIDE URINE 31 mmol/L (32-290)
[2017-08-05 06:32] LABS: MEAN CORPUSCULAR HEMOGLOBIN 29.4 pg (25.0-35.0); MEAN PLATELET VOLUME 10.5 fl (7.0-11.0); RED CELL DISTRIBUTION WIDTH 13.3 % (11.5-14.5); WHITE BLOOD COUNT 9.2 10^3/ul (4.5-11.0)
[2017-08-05 07:01] LABS: ALB/GLOB RATIO 1.3 (1.1-1.8); ALKALINE PHOSPHATASE 59 U/L (38-126); ALT/SGPT 50 U/L (7-56); AST/SGOT 62 U/L (17-59); BILIRUBIN,TOTAL 0.6 mg/dL (0.2-1.3); BLOOD UREA NITROGEN 6 mg/dL (7-21); CALCIUM 8.8 mg/dL (8.4-10.5); CARBON DIOXIDE 28 mmol/L (21-33); CHLORIDE 104 mmol/L (98-107); GFR AFRICAN-AMERICAN > 60; GLUCOSE,RANDOM 90 mg/dL (70-110); MAGNESIUM 2.4 mg/dL (1.7-2.2); PHOSPHOROUS 2.6 mg/dL (2.5-4.5); POTASSIUM 3.3 mmol/L (3.6-5.0); SODIUM 141 mmol/L (132-148); TOTAL PROTEIN 6.9 g/dL (5.8-8.3)
[2017-08-05] MEDS ORDERED: Potassium Chloride 20 mEq ER Tab PO ONE ×2 (07:15→20:40)
--- NOTE | 2017-08-05 07:32 | CP.PCM.PN ---
Objective - Vital Signs/Intake and Output Vital Signs (last 24 hours): Temp Pulse Resp BP Pulse Ox 98.7 F 73 17 141/89 94 L 08/05/17 04:00 08/05/17 04:00 08/05/17 04:00 08/05/17 04:00 08/05/17 04:00 Intake and Output: 08/05/17 08/05/17 06:59 18:59 Intake Total 420 Output Total 2700 Balance -2280 - Medications Medications: Current Medications Benzocaine/Menthol (Cepacol Sore Throat) 1 chas MT Q2H PRN PRN Reason: Sore Throat Enoxaparin Sodium (Lovenox) 40 mg SC DAILY HOOD PRN Reason: Protocol Last Admin: 08/04/17 09:02 Dose: 40 mg Metronidazole (Flagyl) 500 mg in 100 mls @ 100 mls/hr IVPB Q8 HOOD PRN Reason: Protocol Last Admin: 08/05/17 05:20 Dose: 100 mls/hr Ceftriaxone Sodium (Rocephin 1 Gram Ivpb) 1 gm in 100 mls @ 100 mls/hr IVPB DAILY HOOD PRN Reason: Protocol Last Admin: 08/04/17 09:02 Dose: 100 mls/hr Desmopressin Acetate 4 mcg/ (Sodium Chloride) 51 mls @ 100 mls/hr IV STAT STA Stop: 08/05/17 07:44 Dextrose (Dextrose 5% In Water 1000 Ml) 1,000 mls @ 500 mls/hr IV .Q2H HOOD Stop: 08/05/17 11:31 Lorazepam (Ativan) 2 mg IVP Q4H PRN; Protocol PRN Reason: Agitation Last Admin: 08/04/17 06:35 Dose: 2 mg Pantoprazole Sodium (Protonix Inj) 40 mg IVP DAILY HOOD Last Admin: 08/04/17 09:03 Dose: 40 mg - Labs Labs: 08/05/17 06:01 08/05/17 06:01 PT 11.8 Seconds (9.9-11.8) 08/04/17 01:00 INR 1.09 (0.93-1.08) H 08/04/17 01:00
--- NOTE | 2017-08-05 07:41 | CP.CCUPN ---
<Pilar Chi - Last Filed: 08/05/17 10:36> CCU Subjective - Physician Review Events Since Last Encounter (Free Text): 08/05/17 07:39 No acute events overnight Subjective (Free Text): 08/04/17 07:55 Critical care progress note for Dr. Yanci Chi, PGY-1 Pt S & E at bedside. Pt intubated, sedated, arousable to tactile stimuli. 08/05/17 07:39 Critical care progress note for Dr. Yanci Chi, PGY-1 Pt S & E at bedside. Pt c/o swelling/pain of Left hand, throat soreness, and occasional (chronic/ intermittent/epigastric) abdominal pain. Tolerating diet. Denies N/V/F/C, SOB , CP, LE pain. States he does not remember what occurred prior to his hospitalization, does not remember taking any substances. Critical Care Time Spent (in minutes): 40 CCU Objective - Vital Signs / Intake & Output Vital Signs (Last 4 hours): Vital Signs Temp Pulse Resp BP Pulse Ox 08/05/17 04:00 98.7 F 73 17 141/89 94 L Intake and Output (Last 8hrs): Intake & Output 08/04/17 08/05/17 08/05/17 22:59 06:59 14:59 Intake Total 3163 420 Output Total 750 2700 Balance 2413 -2280 Intake: IV 3043 120 Right Antecubital 1015 0 Right Hand 2000 120 Oral 120 300 Output: Urine 750 2700 Urethral (Mendieta) 750 2700 Emesis 0 0 Other: Voiding Method Indwelling Catheter # Bowel Movements 0 0 - Physical Exam Head: Positive for: Atraumatic Pupils: Positive for: PERRL Mouth: Positive for: Dry. Negative for: Drooling, Trismus Pharnyx: Positive for: Normal. Negative for: ERYTHEMA, TONSILS ENLARGED Nose (External): Positive for: Atraumatic Neck: Positive for: Normal Range of Motion Respiratory/Chest: Positive for: Clear to Auscultation, Good Air Exchange. Negative for: Respiratory Distress, Accessory Muscle Use, Wheezes, Rales, Rhonchi Cardiovascular: Positive for: Regular Rate and Rhythm, Normal S1, S2. Negative for: Murmurs Abdomen: Positive for: Normal Bowel Sounds. Negative for: Peritoneal Signs, Rebound, Guarding, Scars Genitourinary Male: Positive for: Normal External Genitalia, Circumcised Penis, Other (Mendieta in place) Back: Negative for: CVA Tenderness, Midline Tenderness Upper Extremity: Positive for: Normal Inspection Lower Extremity: Positive for: Normal Inspection. Negative for: Edema Neurological: Positive for: Other (intubated/sedated). Negative for: GCS=15, CN II-XII Intact, Speech Normal Skin: Positive for: Warm, Dry, Normal Color. Negative for: Rashes Psychiatric: Positive for: Other (intubated/sedated). Negative for: Alert, Oriented x 3, Normal Insight, Normal Concentration - Medications Active Medications: Active Medications Generic Name Dose Route Start Last Admin Trade Name Freq PRN Reason Stop Dose Admin Benzocaine/Menthol 1 chas 08/04/17 17:48 Cepacol Sore Throat MT Q2H PRN Sore Throat Enoxaparin Sodium 40 mg 08/04/17 10:00 08/04/17 09:02 Lovenox SC 40 mg DAILY HOOD Administration Protocol Metronidazole 500 mg in 100 mls @ 100 mls/hr 08/03/17 23:15 08/05/17 05:20 Flagyl IVPB 100 mls/hr Q8 HOOD Administration Protocol Ceftriaxone Sodium 1 gm in 100 mls @ 100 mls/hr 08/04/17 00:30 08/04/17 09:02 Rocephin 1 Gram Ivpb IVPB 100 mls/hr DAILY HOOD Administration Protocol Desmopressin Acetate 4 mcg/ 51 mls @ 100 mls/hr 08/05/17 07:14 Sodium Chloride IV 08/05/17 07:44 STAT STA Dextrose 1,000 mls @ 500 mls/hr 08/05/17 07:30 Dextrose 5% In Water 1000 Ml IV 08/05/17 11:31 .Q2H HOOD Lorazepam 2 mg 08/03/17 20:09 08/04/17 06:35 Ativan IVP 2 mg Q4H PRN Administration Agitation Protocol Pantoprazole Sodium 40 mg 08/04/17 10:00 08/04/17 09:03 Protonix Inj IVP 40 mg DAILY HOOD Administration - Patient Studies Lab Studies: Microbiology Studies 08/03/17 22:10 Blood Culture - Preliminary Blood NO GROWTH AFTER 24 HOURS 08/03/17 21:45 Blood Culture - Preliminary Blood NO GROWTH AFTER 24 HOURS Lab Studies 08/05/17 08/05/17 08/04/17 Range/Units 06:01 06:01 18:22 WBC 9.2 D (4.5-11.0) 10^3/ul RBC 4.76 (3.5-6.1) 10^6/uL Hgb 14.0 (14.0-18.0) g/dL Hct 40.0 L (42.0-52.0) % MCV 84.0 (80.0-105.0) fl MCH 29.4 (25.0-35.0) pg MCHC 35.0 (31.0-37.0) g/dl RDW 13.3 (11.5-14.5) % Plt Count 178 (120.0-450.0) 10^3/uL MPV 10.5 (7.0-11.0) fl pCO2 (35-45) mm/Hg pO2 (80-100) mm/Hg HCO3 (21-28) mmol/L ABG pH (7.35-7.45) ABG Total CO2 (22-28) mmol.L ABG O2 Saturation (95-98) % ABG Base Excess (-2.0-3.0) mmol/L ABG Potassium (3.6-5.2) mmol/L Glucose (75-110) mg/dl Lactate (0.7-2.1) mmol/L Mechanical Rate FiO2 % Tidal Volume PEEP Sodium 141 (132-148) mmol/L Potassium 3.3 L (3.6-5.0) mmol/L Chloride 104 (98-107) mmol/L Carbon Dioxide 28 (21-33) mmol/L Anion Gap 12 (10-20) BUN 6 L (7-21) mg/dL Creatinine 0.6 (0.5-1.4) mg/dL Est GFR ( Amer) > 60 Est GFR (Non-Af Amer) > 60 Random Glucose 90 (70-110) mg/dL Calcium 8.8 (8.4-10.5) mg/dL Phosphorus 2.6 (2.5-4.5) mg/dL Magnesium 2.4 H (1.7-2.2) mg/dL Total Bilirubin 0.6 (0.2-1.3) mg/dL AST 62 H (17-59) U/L ALT 50 (7-56) U/L Alkaline Phosphatase 59 (38-126) U/L Lactate Dehydrogenase (333-699) U/L Total Creatine Kinase (35-230) U/L CK-MB (CK-2) (0.0-3.6) ng/mL CK-MB (CK-2) % (2.5-3.0) % Troponin I ng/mL Total Protein 6.9 (5.8-8.3) g/dL Albumin 3.9 (3.0-4.8) g/dL Globulin 3.1 gm/dL Albumin/Globulin Ratio 1.3 (1.1-1.8) Procalcitonin (0.19-0.49) NG/ML Arterial Blood Potassium (3.6-5.2) mmol/L Urine Osmolality 572 (50-645) mosm/kg Ur Random Sodium 43 meq/L Urine Chloride (32-290) mmol/L 08/04/17 08/04/17 08/04/17 Range/Units 15:56 11:48 08:50 WBC 12.0 H D (4.5-11.0) 10^3/ul RBC 4.63 (3.5-6.1) 10^6/uL Hgb 13.5 L (14.0-18.0) g/dL Hct 38.5 L (42.0-52.0) % MCV 83.2 (80.0-105.0) fl MCH 29.2 (25.0-35.0) pg MCHC 35.1 (31.0-37.0) g/dl RDW 13.2 (11.5-14.5) % Plt Count 194 (120.0-450.0) 10^3/uL MPV 10.9 (7.0-11.0) fl pCO2 (35-45) mm/Hg pO2 (80-100) mm/Hg HCO3 (21-28) mmol/L ABG pH (7.35-7.45) ABG Total CO2 (22-28) mmol.L ABG O2 Saturation (95-98) % ABG Base Excess (-2.0-3.0) mmol/L ABG Potassium (3.6-5.2) mmol/L Glucose (75-110) mg/dl Lactate (0.7-2.1) mmol/L Mechanical Rate FiO2 % Tidal Volume PEEP Sodium 128 L 131 L (132-148) mmol/L Potassium 3.5 L 3.3 L (3.6-5.0) mmol/L Chloride 97 L 99 (98-107) mmol/L Carbon Dioxide 24 23 (21-33) mmol/L Anion Gap 11 12 (10-20) BUN 8 9 (7-21) mg/dL Creatinine 0.5 0.6 (0.5-1.4) mg/dL Est GFR ( Amer) > 60 > 60 Est GFR (Non-Af Amer) > 60 > 60 Random Glucose 79 167 H (70-110) mg/dL Calcium 8.3 L 8.3 L (8.4-10.5) mg/dL Phosphorus 2.7 (2.5-4.5) mg/dL Magnesium 2.0 (1.7-2.2) mg/dL Total Bilirubin 0.8 (0.2-1.3) mg/dL AST 66 H (17-59) U/L ALT 44 (7-56) U/L Alkaline Phosphatase 49 (38-126) U/L Lactate Dehydrogenase 671 (333-699) U/L Total Creatine Kinase 1352 H (35-230) U/L CK-MB (CK-2) 18.3 H (0.0-3.6) ng/mL CK-MB (CK-2) % 1.4 L (2.5-3.0) % Troponin I < 0.01 ng/mL Total Protein 6.3 (5.8-8.3) g/dL Albumin 3.5 (3.0-4.8) g/dL Globulin 2.9 gm/dL Albumin/Globulin Ratio 1.2 (1.1-1.8) Procalcitonin (0.19-0.49) NG/ML Arterial Blood Potassium (3.6-5.2) mmol/L Urine Osmolality (50-645) mosm/kg Ur Random Sodium meq/L Urine Chloride (32-290) mmol/L 08/04/17 08/04/17 08/03/17 Range/Units 08:35 07:54 20:42 WBC (4.5-11.0) 10^3/ul RBC (3.5-6.1) 10^6/uL Hgb (14.0-18.0) g/dL Hct (42.0-52.0) % MCV (80.0-105.0) fl MCH (25.0-35.0) pg MCHC (31.0-37.0) g/dl RDW (11.5-14.5) % Plt Count (120.0-450.0) 10^3/uL MPV (7.0-11.0) fl pCO2 33 L (35-45) mm/Hg pO2 128.0 H (80-100) mm/Hg HCO3 24.0 (21-28) mmol/L ABG pH 7.47 H (7.35-7.45) ABG Total CO2 25.0 (22-28) mmol.L ABG O2 Saturation 99.5 H (95-98) % ABG Base Excess 0.9 (-2.0-3.0) mmol/L ABG Potassium 3.2 L (3.6-5.2) mmol/L Glucose 107 (75-110) mg/dl Lactate 0.5 L (0.7-2.1) mmol/L Mechanical Rate 16 FiO2 40.0 % Tidal Volume 500 PEEP 5 Sodium 132.0 134 (132-148) mmol/L Potassium 3.2 L (3.6-5.0) mmol/L Chloride 102.0 100 (98-107) mmol/L Carbon Dioxide 25 (21-33) mmol/L Anion Gap 12 (10-20) BUN 10 (7-21) mg/dL Creatinine 0.6 (0.5-1.4) mg/dL Est GFR ( Amer) > 60 Est GFR (Non-Af Amer) > 60 Random Glucose 97 (70-110) mg/dL Calcium 8.5 (8.4-10.5) mg/dL Phosphorus 2.7 (2.5-4.5) mg/dL Magnesium 2.1 (1.7-2.2) mg/dL Total Bilirubin 1.0 (0.2-1.3) mg/dL AST 81 H (17-59) U/L ALT 43 (7-56) U/L Alkaline Phosphatase 57 (38-126) U/L Lactate Dehydrogenase (333-699) U/L Total Creatine Kinase (35-230) U/L CK-MB (CK-2) (0.0-3.6) ng/mL CK-MB (CK-2) % (2.5-3.0) % Troponin I ng/mL Total Protein 6.8 (5.8-8.3) g/dL Albumin 3.8 (3.0-4.8) g/dL Globulin 3.0 gm/dL Albumin/Globulin Ratio 1.3 (1.1-1.8) Procalcitonin < 0.05 L (0.19-0.49) NG/ML Arterial Blood Potassium 3.2 L (3.6-5.2) mmol/L Urine Osmolality (50-645) mosm/kg Ur Random Sodium meq/L Urine Chloride (32-290) mmol/L 08/03/17 Range/Units 20:42 WBC (4.5-11.0) 10^3/ul RBC (3.5-6.1) 10^6/uL Hgb (14.0-18.0) g/dL Hct (42.0-52.0) % MCV (80.0-105.0) fl MCH (25.0-35.0) pg MCHC (31.0-37.0) g/dl RDW (11.5-14.5) % Plt Count (120.0-450.0) 10^3/uL MPV (7.0-11.0) fl pCO2 (35-45) mm/Hg pO2 (80-100) mm/Hg HCO3 (21-28) mmol/L ABG pH (7.35-7.45) ABG Total CO2 (22-28) mmol.L ABG O2 Saturation (95-98) % ABG Base Excess (-2.0-3.0) mmol/L ABG Potassium (3.6-5.2) mmol/L Glucose (75-110) mg/dl Lactate (0.7-2.1) mmol/L Mechanical Rate FiO2 % Tidal Volume PEEP Sodium (132-148) mmol/L Potassium (3.6-5.0) mmol/L Chloride (98-107) mmol/L Carbon Dioxide (21-33) mmol/L Anion Gap (10-20) BUN (7-21) mg/dL Creatinine (0.5-1.4) mg/dL Est GFR ( Amer) Est GFR (Non-Af Amer) Random Glucose (70-110) mg/dL Calcium (8.4-10.5) mg/dL Phosphorus (2.5-4.5) mg/dL Magnesium (1.7-2.2) mg/dL Total Bilirubin (0.2-1.3) mg/dL AST (17-59) U/L ALT (7-56) U/L Alkaline Phosphatase (38-126) U/L Lactate Dehydrogenase (333-699) U/L Total Creatine Kinase (35-230) U/L CK-MB (CK-2) (0.0-3.6) ng/mL CK-MB (CK-2) % (2.5-3.0) % Troponin I ng/mL Total Protein (5.8-8.3) g/dL Albumin (3.0-4.8) g/dL Globulin gm/dL Albumin/Globulin Ratio (1.1-1.8) Procalcitonin (0.19-0.49) NG/ML Arterial Blood Potassium (3.6-5.2) mmol/L Urine Osmolality (50-645) mosm/kg Ur Random Sodium meq/L Urine Chloride 31 L (32-290) mmol/L Laboratory Results - last 24 hr 08/03/17 08/03/17 08/04/17 20:42 20:42 07:54 WBC RBC Hgb Hct MCV MCH MCHC RDW Plt Count MPV pCO2 pO2 HCO3 ABG pH ABG Total CO2 ABG O2 Saturation ABG Base Excess ABG Potassium Glucose Lactate Mechanical Rate FiO2 Tidal Volume PEEP Sodium 134 Potassium 3.2 L Chloride 100 Carbon Dioxide 25 Anion Gap 12 BUN 10 Creatinine 0.6 Est GFR ( Amer) > 60 Est GFR (Non-Af Amer) > 60 Random Glucose 97 Calcium 8.5 Phosphorus 2.7 Magnesium 2.1 Total Bilirubin 1.0 AST 81 H ALT 43 Alkaline Phosphatase 57 Lactate Dehydrogenase Total Creatine Kinase CK-MB (CK-2) CK-MB (CK-2) % Troponin I Total Protein 6.8 Albumin 3.8 Globulin 3.0 Albumin/Globulin Ratio 1.3 Procalcitonin < 0.05 L Arterial Blood Potassium Urine Osmolality Ur Random Sodium Urine Chloride 31 L 08/04/17 08/04/17 08/04/17 08:35 08:50 11:48 WBC 12.0 H D RBC 4.63 Hgb 13.5 L Hct 38.5 L MCV 83.2 MCH 29.2 MCHC 35.1 RDW 13.2 Plt Count 194 MPV 10.9 pCO2 33 L pO2 128.0 H HCO3 24.0 ABG pH 7.47 H ABG Total CO2 25.0 ABG O2 Saturation 99.5 H ABG Base Excess 0.9 ABG Potassium 3.2 L Glucose 107 Lactate 0.5 L Mechanical Rate 16 FiO2 40.0 Tidal Volume 500 PEEP 5 Sodium 132.0 131 L Potassium 3.3 L Chloride 102.0 99 Carbon Dioxide 23 Anion Gap 12 BUN 9 Creatinine 0.6 Est GFR ( Amer) > 60 Est GFR (Non-Af Amer) > 60 Random Glucose 167 H Calcium 8.3 L Phosphorus 2.7 Magnesium 2.0 Total Bilirubin 0.8 AST 66 H ALT 44 Alkaline Phosphatase 49 Lactate Dehydrogenase 671 Total Creatine Kinase 1352 H CK-MB (CK-2) 18.3 H CK-MB (CK-2) % 1.4 L Troponin I < 0.01 Total Protein 6.3 Albumin 3.5 Globulin 2.9 Albumin/Globulin Ratio 1.2 Procalcitonin Arterial Blood Potassium 3.2 L Urine Osmolality Ur Random Sodium Urine Chloride 08/04/17 08/04/17 08/05/17 15:56 18:22 06:01 WBC 9.2 D RBC 4.76 Hgb 14.0 Hct 40.0 L MCV 84.0 MCH 29.4 MCHC 35.0 RDW 13.3 Plt Count 178 MPV 10.5 pCO2 pO2 HCO3 ABG pH ABG Total CO2 ABG O2 Saturation ABG Base Excess ABG Potassium Glucose Lactate Mechanical Rate FiO2 Tidal Volume PEEP Sodium 128 L Potassium 3.5 L Chloride 97 L Carbon Dioxide 24 Anion Gap 11 BUN 8 Creatinine 0.5 Est GFR ( Amer) > 60 Est GFR (Non-Af Amer) > 60 Random Glucose 79 Calcium 8.3 L Phosphorus Magnesium Total Bilirubin AST ALT Alkaline Phosphatase Lactate Dehydrogenase Total Creatine Kinase CK-MB (CK-2) CK-MB (CK-2) % Troponin I Total Protein Albumin Globulin Albumin/Globulin Ratio Procalcitonin Arterial Blood Potassium Urine Osmolality 572 Ur Random Sodium 43 Urine Chloride 08/05/17 06:01 WBC RBC Hgb Hct MCV MCH MCHC RDW Plt Count MPV pCO2 pO2 HCO3 ABG pH ABG Total CO2 ABG O2 Saturation ABG Base Excess ABG Potassium Glucose Lactate Mechanical Rate FiO2 Tidal Volume PEEP Sodium 141 Potassium 3.3 L Chloride 104 Carbon Dioxide 28 Anion Gap 12 BUN 6 L Creatinine 0.6 Est GFR ( Amer) > 60 Est GFR (Non-Af Amer) > 60 Random Glucose 90 Calcium 8.8 Phosphorus 2.6 Magnesium 2.4 H Total Bilirubin 0.6 AST 62 H ALT 50 Alkaline Phosphatase 59 Lactate Dehydrogenase Total Creatine Kinase CK-MB (CK-2) CK-MB (CK-2) % Troponin I Total Protein 6.9 Albumin 3.9 Globulin 3.1 Albumin/Globulin Ratio 1.3 Procalcitonin Arterial Blood Potassium Urine Osmolality Ur Random Sodium Urine Chloride EKG/Cardiology Studies: Cardiology / EKG Studies 08/04/17 14:52 EKG [ELECTROCARDIOGRAM] Stat Comment: Reason For Exam: QT interval analysis 08/04/17 20:00 EKG [ELECTROCARDIOGRAM] Routine Comment: Reason For Exam: QT prolongation trend 08/05/17 08:00 EKG [ELECTROCARDIOGRAM] Routine Comment: Reason For Exam: Poison control request for additional EKG Critical Care Progress Note - Nutrition Nutrition: Nutrition Category Date Time Status Dysphagia/Modified Consistency Diet [DIET] Diets 08/04/17 Dinner Ordered Assessment/Plan - Assessment and Plan (Free Text) Assessment: 47M w/AMS s/p intubation, off sedation, now oriented, AMS resolved, stable overnight, no agitation Plan: Neuro AOx3 Verbal Off precedex Ativan PRN Psych following CVS Few episodes of HTN Monitor Pulm SaO2 94 Target SaO2>94% O2 PRN GI Soft diet cepacol PRN [place] in place 2/2 acute urinary retention I/O Monitor Nephro Na 141 D/c 3% saline Slight hypermagnesemia- 2.4 Monitor Hypokalemia k 3.3 Replaced 20mEq Urine Cl 31 (low) Strict I/O's Monitor Nephro following MSK Left hand swollen IV removed Monitor for skin break down CK 1352 from 2222 Cont IVF PT eval ID Enteritis Afebrile leukocytosis resolved On Flagyl On Rocephin Blood cx x 24H Urine cx neg Procalcitonin <0.05 (neg) Monitor GI/DVT ppx Lovenox Protonix Dispo Stable FU noon BMP Regular diet DW attending Arti, PGY-1 - Date & Time Date: 08/05/17 Time: 06:30 <Oneil Waite - Last Filed: 08/05/17 10:55> CCU Objective - Vital Signs / Intake & Output Vital Signs (Last 4 hours): Vital Signs Temp Pulse Resp BP Pulse Ox 08/05/17 08:00 98.1 F 72 20 149/92 H 89 L 08/05/17 07:01 69 13 132/88 08/05/17 07:00 86 17 Intake and Output (Last 8hrs): Intake & Output 08/04/17 08/05/17 08/05/17 22:59 06:59 14:59 Intake Total 3163 420 440 Output Total 750 2700 1700 Balance 5930 -5286 -6471 Intake: IV 3043 120 140 Right Antecubital 1015 0 0 Right Hand 2000 120 140 Oral 120 300 300 Output: Urine 750 2700 1700 Urethral (Mendieta) 750 2700 1700 Emesis 0 0 0 Other: Voiding Method Indwelling Catheter # Bowel Movements 0 0 0 - Medications Active Medications: Active Medications Generic Name Dose Route Start Last Admin Trade Name Freq PRN Reason Stop Dose Admin Benzocaine/Menthol 1 chas 08/04/17 17:48 08/05/17 07:53 Cepacol Sore Throat MT 1 chas Q2H PRN Administration Sore Throat Enoxaparin Sodium 40 mg 08/04/17 10:00 08/05/17 10:05 Lovenox SC 40 mg DAILY HOOD Administration Protocol Metronidazole 500 mg in 100 mls @ 100 mls/hr 08/03/17 23:15 08/05/17 05:20 Flagyl IVPB 100 mls/hr Q8 HOOD Administration Protocol Ceftriaxone Sodium 1 gm in 100 mls @ 100 mls/hr 08/04/17 00:30 08/05/17 10:06 Rocephin 1 Gram Ivpb IVPB 100 mls/hr DAILY HOOD Administration Protocol Dextrose 1,000 mls @ 500 mls/hr 08/05/17 07:30 08/05/17 09:49 Dextrose 5% In Water 1000 Ml IV 08/05/17 11:31 500 mls/hr .Q2H HOOD Administration Lorazepam 2 mg 08/03/17 20:09 08/04/17 06:35 Ativan IVP 2 mg Q4H PRN Administration Agitation Protocol Pantoprazole Sodium 40 mg 08/04/17 10:00 08/05/17 10:05 Protonix Inj IVP 40 mg DAILY HOOD Administration - Patient Studies Lab Studies: Microbiology Studies 08/03/17 22:10 Blood Culture - Preliminary Blood NO GROWTH AFTER 24 HOURS 08/03/17 21:45 Blood Culture - Preliminary Blood NO GROWTH AFTER 24 HOURS Lab Studies 08/05/17 08/05/17 08/04/17 Range/Units 06:01 06:01 18:22 WBC 9.2 D (4.5-11.0) 10^3/ul RBC 4.76 (3.5-6.1) 10^6/uL Hgb 14.0 (14.0-18.0) g/dL Hct 40.0 L (42.0-52.0) % MCV 84.0 (80.0-105.0) fl MCH 29.4 (25.0-35.0) pg MCHC 35.0 (31.0-37.0) g/dl RDW 13.3 (11.5-14.5) % Plt Count 178 (120.0-450.0) 10^3/uL MPV 10.5 (7.0-11.0) fl Sodium 141 (132-148) mmol/L Potassium 3.3 L (3.6-5.0) mmol/L Chloride 104 (98-107) mmol/L Carbon Dioxide 28 (21-33) mmol/L Anion Gap 12 (10-20) BUN 6 L (7-21) mg/dL Creatinine 0.6 (0.5-1.4) mg/dL Est GFR ( Amer) > 60 Est GFR (Non-Af Amer) > 60 Random Glucose 90 (70-110) mg/dL Calcium 8.8 (8.4-10.5) mg/dL Phosphorus 2.6 (2.5-4.5) mg/dL Magnesium 2.4 H (1.7-2.2) mg/dL Total Bilirubin 0.6 (0.2-1.3) mg/dL AST 62 H (17-59) U/L ALT 50 (7-56) U/L Alkaline Phosphatase 59 (38-126) U/L Lactate Dehydrogenase (333-699) U/L Total Creatine Kinase (35-230) U/L CK-MB (CK-2) (0.0-3.6) ng/mL CK-MB (CK-2) % (2.5-3.0) % Troponin I ng/mL Total Protein 6.9 (5.8-8.3) g/dL Albumin 3.9 (3.0-4.8) g/dL Globulin 3.1 gm/dL Albumin/Globulin Ratio 1.3 (1.1-1.8) Procalcitonin (0.19-0.49) NG/ML Urine Osmolality 572 (50-645) mosm/kg Ur Random Sodium 43 meq/L Urine Chloride (32-290) mmol/L 08/04/17 08/04/17 08/03/17 Range/Units 15:56 11:48 20:42 WBC (4.5-11.0) 10^3/ul RBC (3.5-6.1) 10^6/uL Hgb (14.0-18.0) g/dL Hct (42.0-52.0) % MCV (80.0-105.0) fl MCH (25.0-35.0) pg MCHC (31.0-37.0) g/dl RDW (11.5-14.5) % Plt Count (120.0-450.0) 10^3/uL MPV (7.0-11.0) fl Sodium 128 L 131 L (132-148) mmol/L Potassium 3.5 L 3.3 L (3.6-5.0) mmol/L Chloride 97 L 99 (98-107) mmol/L Carbon Dioxide 24 23 (21-33) mmol/L Anion Gap 11 12 (10-20) BUN 8 9 (7-21) mg/dL Creatinine 0.5 0.6 (0.5-1.4) mg/dL Est GFR ( Amer) > 60 > 60 Est GFR (Non-Af Amer) > 60 > 60 Random Glucose 79 167 H (70-110) mg/dL Calcium 8.3 L 8.3 L (8.4-10.5) mg/dL Phosphorus 2.7 (2.5-4.5) mg/dL Magnesium 2.0 (1.7-2.2) mg/dL Total Bilirubin 0.8 (0.2-1.3) mg/dL AST 66 H (17-59) U/L ALT 44 (7-56) U/L Alkaline Phosphatase 49 (38-126) U/L Lactate Dehydrogenase 671 (333-699) U/L Total Creatine Kinase 1352 H (35-230) U/L CK-MB (CK-2) 18.3 H (0.0-3.6) ng/mL CK-MB (CK-2) % 1.4 L (2.5-3.0) % Troponin I < 0.01 ng/mL Total Protein 6.3 (5.8-8.3) g/dL Albumin 3.5 (3.0-4.8) g/dL Globulin 2.9 gm/dL Albumin/Globulin Ratio 1.2 (1.1-1.8) Procalcitonin < 0.05 L (0.19-0.49) NG/ML Urine Osmolality (50-645) mosm/kg Ur Random Sodium meq/L Urine Chloride (32-290) mmol/L 08/03/17 Range/Units 20:42 WBC (4.5-11.0) 10^3/ul RBC (3.5-6.1) 10^6/uL Hgb (14.0-18.0) g/dL Hct (42.0-52.0) % MCV (80.0-105.0) fl MCH (25.0-35.0) pg MCHC (31.0-37.0) g/dl RDW (11.5-14.5) % Plt Count (120.0-450.0) 10^3/uL MPV (7.0-11.0) fl Sodium (132-148) mmol/L Potassium (3.6-5.0) mmol/L Chloride (98-107) mmol/L Carbon Dioxide (21-33) mmol/L Anion Gap (10-20) BUN (7-21) mg/dL Creatinine (0.5-1.4) mg/dL Est GFR ( Amer) Est GFR (Non-Af Amer) Random Glucose (70-110) mg/dL Calcium (8.4-10.5) mg/dL Phosphorus (2.5-4.5) mg/dL Magnesium (1.7-2.2) mg/dL Total Bilirubin (0.2-1.3) mg/dL AST (17-59) U/L ALT (7-56) U/L Alkaline Phosphatase (38-126) U/L Lactate Dehydrogenase (333-699) U/L Total Creatine Kinase (35-230) U/L CK-MB (CK-2) (0.0-3.6) ng/mL CK-MB (CK-2) % (2.5-3.0) % Troponin I ng/mL Total Protein (5.8-8.3) g/dL Albumin (3.0-4.8) g/dL Globulin gm/dL Albumin/Globulin Ratio (1.1-1.8) Procalcitonin (0.19-0.49) NG/ML Urine Osmolality (50-645) mosm/kg Ur Random Sodium meq/L Urine Chloride 31 L (32-290) mmol/L Laboratory Results - last 24 hr 08/03/17 08/03/17 08/04/17 20:42 20:42 11:48 WBC RBC Hgb Hct MCV MCH MCHC RDW Plt Count MPV Sodium 131 L Potassium 3.3 L Chloride 99 Carbon Dioxide 23 Anion Gap 12 BUN 9 Creatinine 0.6 Est GFR ( Amer) > 60 Est GFR (Non-Af Amer) > 60 Random Glucose 167 H Calcium 8.3 L Phosphorus 2.7 Magnesium 2.0 Total Bilirubin 0.8 AST 66 H ALT 44 Alkaline Phosphatase 49 Lactate Dehydrogenase 671 Total Creatine Kinase 1352 H CK-MB (CK-2) 18.3 H CK-MB (CK-2) % 1.4 L Troponin I < 0.01 Total Protein 6.3 Albumin 3.5 Globulin 2.9 Albumin/Globulin Ratio 1.2 Procalcitonin < 0.05 L Urine Osmolality Ur Random Sodium Urine Chloride 31 L 08/04/17 08/04/17 08/05/17 15:56 18:22 06:01 WBC 9.2 D RBC 4.76 Hgb 14.0 Hct 40.0 L MCV 84.0 MCH 29.4 MCHC 35.0 RDW 13.3 Plt Count 178 MPV 10.5 Sodium 128 L Potassium 3.5 L Chloride 97 L Carbon Dioxide 24 Anion Gap 11 BUN 8 Creatinine 0.5 Est GFR ( Amer) > 60 Est GFR (Non-Af Amer) > 60 Random Glucose 79 Calcium 8.3 L Phosphorus Magnesium Total Bilirubin AST ALT Alkaline Phosphatase Lactate Dehydrogenase Total Creatine Kinase CK-MB (CK-2) CK-MB (CK-2) % Troponin I Total Protein Albumin Globulin Albumin/Globulin Ratio Procalcitonin Urine Osmolality 572 Ur Random Sodium 43 Urine Chloride 08/05/17 06:01 WBC RBC Hgb Hct MCV MCH MCHC RDW Plt Count MPV Sodium 141 Potassium 3.3 L Chloride 104 Carbon Dioxide 28 Anion Gap 12 BUN 6 L Creatinine 0.6 Est GFR ( Amer) > 60 Est GFR (Non-Af Amer) > 60 Random Glucose 90 Calcium 8.8 Phosphorus 2.6 Magnesium 2.4 H Total Bilirubin 0.6 AST 62 H ALT 50 Alkaline Phosphatase 59 Lactate Dehydrogenase Total Creatine Kinase CK-MB (CK-2) CK-MB (CK-2) % Troponin I Total Protein 6.9 Albumin 3.9 Globulin 3.1 Albumin/Globulin Ratio 1.3 Procalcitonin Urine Osmolality Ur Random Sodium Urine Chloride EKG/Cardiology Studies: Cardiology / EKG Studies 08/04/17 14:52 EKG [ELECTROCARDIOGRAM] Stat Comment: Reason For Exam: QT interval analysis 08/04/17 20:00 EKG [ELECTROCARDIOGRAM] Routine Comment: Reason For Exam: QT prolongation trend 08/05/17 08:00 EKG [ELECTROCARDIOGRAM] Routine Comment: Reason For Exam: Poison control request for additional EKG Critical Care Progress Note - Nutrition Nutrition: Nutrition Category Date Time Status Dysphagia/Modified Consistency Diet [DIET] Diets 08/04/17 Dinner Ordered Assessment/Plan - Assessment and Plan (Free Text) Plan: Patient seen and examined with resident. Agree with residents note. Reports no major complaints. Patient was extubated yesterday afternoon, tolerated NC well. Na today is 141, increased from 128, receiving desmopressin and D5W bolus as per renal. Patient afebrile, HD stable, comfortable on 2LNC, NAD, AAOX3. Psychiatry following. AMS, resolved Schizophrenia Hyponatremia, resolved Luekocytosis, resolved Entiritis Recommend: - Fluid managment as per renal - follow up neuro, psych - resume diet - Abx for entiritis/colits - replete electrolytes - supp o2 - DC mendieta - OOB to chair - DVT ppx - transfer to regional medical floor if afternoon BMP is ok
[2017-08-05] MEDS: Enoxaparin 40 mg Syringe SC SCH (10:05)
[2017-08-05] MEDS: cefTRIAXone 1 gm 1 GM/100 ML BAG IVPB SCH (10:06)
--- NOTE | 2017-08-05 10:12 | CP.PCM.PCO ---
Physician Communication Note - Physician Communication Note Physician Communication Note: Pt refused midnight blood draws per nursing
[2017-08-05 12:10] LABS: GLUCOSE,RANDOM 111 mg/dL (70-110)
[2017-08-05 12:11] LABS: BLOOD UREA NITROGEN 6 mg/dL (7-21); CALCIUM 8.5 mg/dL (8.4-10.5); CARBON DIOXIDE 28 mmol/L (21-33); CHLORIDE 101 mmol/L (98-107); GFR AFRICAN-AMERICAN > 60; POTASSIUM 3.8 mmol/L (3.6-5.0); SODIUM 137 mmol/L (132-148)
--- NOTE | 2017-08-05 13:28 | CP.PCM.PN ---
<CruzitobelenAnabelasusana - Last Filed: 08/05/17 13:24> Subjective - Date & Time of Evaluation Date of Evaluation: 08/05/17 Time of Evaluation: 13:25 - Subjective Subjective: Patient has been seen and examined. Overnight patient refused his midnight blood draws. Patient complains of generalized abdominal tenderness, more prominent in the epigastric region. He also complains of sore throat. He denies headache, dizziness, CP, SOB, Vomiting, constipation, diarrhea, numbness , tingling. Objective - Vital Signs/Intake and Output Vital Signs (last 24 hours): Temp Pulse Resp BP Pulse Ox 98.1 F 65 15 181/104 H 97 08/05/17 08:00 08/05/17 11:01 08/05/17 11:01 08/05/17 11:01 08/05/17 11:01 Intake and Output: 08/05/17 08/05/17 06:59 18:59 Intake Total 420 440 Output Total 2700 1700 Balance -2280 -1260 - Medications Medications: Current Medications Amlodipine Besylate (Norvasc) 10 mg PO DAILY [facility] Benzocaine/Menthol (Cepacol Sore Throat) 1 chas MT Q2H PRN PRN Reason: Sore Throat Last Admin: 08/05/17 07:53 Dose: 1 chas Enoxaparin Sodium (Lovenox) 40 mg SC DAILY [facility] PRN Reason: Protocol Last Admin: 08/05/17 10:05 Dose: 40 mg Metronidazole (Flagyl) 500 mg in 100 mls @ 100 mls/hr IVPB Q8 [facility] PRN Reason: Protocol Last Admin: 08/05/17 05:20 Dose: 100 mls/hr Ceftriaxone Sodium (Rocephin 1 Gram Ivpb) 1 gm in 100 mls @ 100 mls/hr IVPB DAILY [facility] PRN Reason: Protocol Last Admin: 08/05/17 10:06 Dose: 100 mls/hr Lorazepam (Ativan) 2 mg IVP Q4H PRN; Protocol PRN Reason: Agitation Last Admin: 08/04/17 06:35 Dose: 2 mg Pantoprazole Sodium (Protonix Inj) 40 mg IVP DAILY [facility] Last Admin: 08/05/17 10:05 Dose: 40 mg - Labs Labs: 08/05/17 06:01 08/05/17 11:45 PT 11.8 Seconds (9.9-11.8) 08/04/17 01:00 INR 1.09 (0.93-1.08) H 08/04/17 01:00 - Constitutional Appears: Well, Non-toxic, No Acute Distress - Head Exam Head Exam: ATRAUMATIC, NORMOCEPHALIC - Eye Exam Eye Exam: EOMI, Normal appearance - ENT Exam ENT Exam: Mucous Membranes Moist - Neck Exam Neck Exam: absent: Lymphadenopathy - Respiratory Exam Respiratory Exam: Clear to Ausculation Bilateral. absent: Rales, Rhonchi, Wheezes, Stridor - Cardiovascular Exam Cardiovascular Exam: RRR, +S1, +S2 - GI/Abdominal Exam GI & Abdominal Exam: Soft, Tenderness, Normal Bowel Sounds. absent: Organomegaly - Extremities Exam Extremities Exam: Normal Capillary Refill. absent: Pedal Edema - Back Exam Back Exam: CVA tenderness (R) - Neurological Exam Neurological Exam: Alert, Awake, Oriented x3 - Psychiatric Exam Psychiatric exam: Normal Mood Additional comments: blunted affect Assessment and Plan - Assessment and Plan (Free Text) Assessment: 47 yo male with PMH of schizophrenia, HTN, herniated disk presented with AMS, hyponatremia, hypokalemia. Intubated in ED for airway protection. Patient is now extubated, AAOx3 w/ electrolyte abnormalities corrected. Plan: 1. Airway Management -extubated yesterday. Saturating well on RA -Cepacol for sore throat. 2. AMS 2/2 Alcohol withdrawal or intoxication vs opioid withdrawal or intoxication vs. Psychosis 2/2 to Schizophrenia -Ativan PRN -Psych Consult for evaluation, treatment, and medication reconciliation. -Risperidone/Paxil/Trazodone Held. 3. Acute Gastritis - Cont. Rocephin (200ml/hr)/Flagyl -No leukocytosis. GI/DVT Proph Protonix/Lovenox 4. HTN -Amlodipine 10 -Monitor BP. Dispo: Attempted to call Tiffany Cristobal today (Mother). Home phone listed in chart was her old workplace which she retired from. Other Phone number listed does not work. Patient states that he and her mother are in the middle of moving so they have changed phone numbers. He does not remember his mothers cell phone number. Patient needs to be out of ICU for 24 hours before DCd. We will cont. to monitor. Will likely DC tomorrow. Patient seen, reviewed, and examined with Attending Jethro Abdi PGY1 <Peg Rodrigues - Last Filed: 08/05/17 14:24> Objective - Vital Signs/Intake and Output Vital Signs (last 24 hours): Temp Pulse Resp BP Pulse Ox 97.8 F 65 15 161/86 H 97 08/05/17 12:00 08/05/17 11:01 08/05/17 11:01 08/05/17 13:42 08/05/17 11:01 Intake and Output: 08/05/17 08/05/17 06:59 18:59 Intake Total 420 440 Output Total 2700 1700 Balance -2280 -1260 - Medications Medications: Current Medications Amlodipine Besylate (Norvasc) 10 mg PO DAILY [facility] Last Admin: 08/05/17 13:42 Dose: 10 mg Benzocaine/Menthol (Cepacol Sore Throat) 1 chas MT Q2H PRN PRN Reason: Sore Throat Last Admin: 08/05/17 07:53 Dose: 1 chas Enoxaparin Sodium (Lovenox) 40 mg SC DAILY [facility] PRN Reason: Protocol Last Admin: 08/05/17 10:05 Dose: 40 mg Metronidazole (Flagyl) 500 mg in 100 mls @ 100 mls/hr IVPB Q8 [facility] PRN Reason: Protocol Last Admin: 08/05/17 13:43 Dose: 100 mls/hr Ceftriaxone Sodium (Rocephin 1 Gram Ivpb) 1 gm in 100 mls @ 100 mls/hr IVPB DAILY [facility] PRN Reason: Protocol Last Admin: 08/05/17 10:06 Dose: 100 mls/hr Lorazepam (Ativan) 2 mg IVP Q4H PRN; Protocol PRN Reason: Agitation Last Admin: 08/04/17 06:35 Dose: 2 mg Pantoprazole Sodium (Protonix Inj) 40 mg IVP DAILY [facility] Last Admin: 08/05/17 10:05 Dose: 40 mg - Labs Labs: 08/05/17 06:01 08/05/17 11:45 PT 11.8 Seconds (9.9-11.8) 08/04/17 01:00 INR 1.09 (0.93-1.08) H 08/04/17 01:00 Attending/Attestation - Attestation I have personally seen and examined this patient.: Yes I have fully participated in the care of the patient.: Yes I have reviewed all pertinent clinical information, including history, physical exam and plan: Yes Notes (Text): 08/05/17 14:21 Attending note; Patient seen and examined with resident in ICU. Patient is a 47-year-old male with a history of psychiatric disorder is admitted with agitation and intubated for airway protection. currently extubated. Patient is alert, awake and oriented. hyponatremia; sodium level is normal. follow-up with nephrology. psychiatric re evaluation requested. transferred to MedSurg floor. Possible discharge vs transfer to psychiatric floor tomorrow if stable.
--- NOTE | 2017-08-05 13:51 | PN ---
NEUROLOGY PROGRESS NOTE DATE: 08/05/2017 SUBJECTIVE: The patient is a lying on the bed, in no acute distress. He is status post extubation. Complains of abdominal pain. PHYSICAL EXAMINATION: VITAL SIGNS: Blood pressure is 149/92, heart rate is 72 per minute, breathing at a rate of 16 per minute, temperature is 98.1 degree Fahrenheit. HEENT: Head is normocephalic and atraumatic. NECK: Supple. There are no carotid bruits. LUNGS: Clear. CARDIOVASCULAR: S1 and S2 audible. No murmurs. ABDOMEN: Soft and nontender. Bowel sounds are present. NEUROLOGICAL EXAM: Mental Status: The patient is awake, alert, oriented to place, person, and years. Speech is fluent. Naming and repetition is normal. Memory and cognition are intact. Cranial nerve examination: Pupils are 4 mm bilaterally reactive to light. Visual buckley are full. Extraocular movements are intact. There is no facial asymmetry. Palate is upgoing bilaterally and tongue is midline. Motor examination: Tone is normal and power is 5/5 bilaterally in all extremities. Plantars downgoing bilaterally. LABORATORY DATA: Reviewed, shows WBC of 9.2, hemoglobin of 14.0, hematocrit of 40 and platelets of 178. Sodium is 141, potassium 3.3, chloride of 104, carbon dioxide content of 28, BUN of 6, creatinine 0.6 and glucose of 90. The patient had an electroencephalogram done, which is normal. IMPRESSION: 1. Status post altered mental status, possibly secondary to hyponatremia. 2. Status post respiratory failure. RECOMMENDATIONS: 1. The patient is at his baseline mental status. 2. The patient does not have any focal neurologic deficits. 3. No further neurologic recommendations. Please call neurology on an as needed basis. Thank you for the opportunity to participate in the care of this patient. Radha Coto MD
--- NOTE | 2017-08-05 14:54 | EEG ---
DATE: INTRODUCTION: This is a digitally recorded EEG monitoring using standard EEG montages. BACKGROUND RHYTHM: The EEG shows a background activity of 12-13 Hertz in parieto-occipital region. The EEG activity is bilaterally symmetrical and synchronous. There is no EEG activity was seen. ABNORMAL POTENTIALS: No spike, sharp waves or focal slowing was seen. Photic stimulation and hyperventilation were not performed. IMPRESSION: Normal EEG. No epileptiform activity seen in this EEG recording. Radha Coto MD
--- NOTE | 2017-08-05 17:48 | CARD ---
APPROVED REPORT EKG Measurement Heart [id number] [place] [id number] <Conclusion> Normal sinus rhythm Left axis deviation Abnormal ECG
--- NOTE | 2017-08-05 17:56 | CARD ---
APPROVED REPORT EKG Measurement Heart [id number] [place] [id number] <Conclusion> Normal sinus rhythm with sinus arrhythmia Left anterior fascicular block Abnormal ECG
[2017-08-05 19:29] LABS: BLOOD UREA NITROGEN 7 mg/dL (7-21); CALCIUM 8.9 mg/dL (8.4-10.5); CARBON DIOXIDE 27 mmol/L (21-33); CHLORIDE 101 mmol/L (98-107); GFR AFRICAN-AMERICAN > 60; GLUCOSE,RANDOM 104 mg/dL (70-110); POTASSIUM 3.2 mmol/L (3.6-5.0); SODIUM 138 mmol/L (132-148)
--- NOTE | 2017-08-06 00:11 | PN ---
DATE: 08/05/2017 NEPHROLOGY FOLLOWUP NOTE SUBJECTIVE: A 47-year-old male with past medical history of schizophrenia, hypertension admitted with hyponatremia, has to be intubated for airway protection due to severe agitation. Nephrology following for hyponatremia. The patient extubated, currently tolerating diet well, poor historian, but does note history of vomiting, cannot say duration. PHYSICAL EXAMINATION: GENERAL: No distress, conversing coherently in full sentences. VITAL SIGNS: This morning, blood pressure 178/85, heart rate is 97, respirations 12 and O2 sat 92% on room air. HEENT: Moist mucous membranes. Anicteric. RESPIRATORY: Lungs clear to auscultation bilaterally. No rales. No rhonchi. No wheezes. CARDIOVASCULAR: Heart S1 and S2, normal. No murmurs. No gallops. No rubs. GASTROINTESTINAL: Abdomen soft, nontender and nondistended. GENITOURINARY: No bladder distention. Fragoso in place. EXTREMITIES: No lower leg edema. SKIN: Warm. No cyanosis. PSYCHIATRIC: The patient frequently cannot focus on conversation, frequently drifting into extraneous subject matter. LABORATORY DATA: This morning, CBC; WBC 9.2, hemoglobin 14.0, hematocrit 40.0 and platelets 178. Chemistry panel, sodium 141 increased from 128 yesterday afternoon, potassium 3.3, chloride 104, bicarb 28, BUN 6, creatinine 0.6, calcium 8.8. Urine lytes from this morning; urine osmolality 516, urine osmolality yesterday evening 572. ASSESSMENT: 1. Hyponatremia, consistent with hyponatremia that is secondary to volume depletion with rapid rise in serum sodium after being given isotonic fluids. The patient had to have urgent measures to quickly lower serum sodium. Yesterday, he was given desmopressin 4 mcg IV and D5W 2 L over 4 hours. The patient subsequently with serum sodium that appropriately corrected; however, urine osmolality remained high yesterday evening due to the effect of desmopressin, and therefore, hypertonic saline was started to avoid further decrease in serum sodium; the patient was to have chemistry panel checked last night at midnight; however, refused. Serum sodium again this morning increased to rapidly again the patient was given desmopressin 4 mcg and D5W 2 L over 4 hours with serum sodium correcting to 137 late this morning. Plan: We will hold off on any further administration of saline or hypertonic saline. Checking BMP this evening. 2. Hypokalemia, relatively mild. Continue to supplement p.r.n. 3. Rhabdomyolysis, relatively mild in the setting of agitation. 4. Hypertension. The patient at home on amlodipine 10 mg daily and lisinopril 20 mg daily. We will continue to hold lisinopril. Restart amlodipine 10 mg daily. Davion Mejias MD
[2017-08-06] MEDS ORDERED: Pantoprazole 40 mg Susp UD PO SCH (06:00)
[2017-08-06] MEDS: metroNIDAZOLE IV 500 mg/100 ml 500 MG/100 ML BAG IVPB SCH ×2 (06:26→14:19)
--- NOTE | 2017-08-06 06:50 | EEG ---
CONDITION OF THE RECORDING: History of altered mental status. PAST MEDICAL HISTORY: Schizophrenia, hypertension and disc disease. MEDICATIONS: Norvasc, Rocephin, Lovenox, Ativan, Flagyl and Protonix. DESCRIPTION: Background activity of this tracing was composed of 8 to 9 cycle per second alpha like activity, small amount of beta activity 16 to 20 cycle per second was noted in the tracing, theta activity 5 to 7 cycle per second was noted in the tracing, drowsiness was composed of mixed beta and theta activity. Photic stimulation did not change the record. No paroxysmal activity was seen in the record. IMPRESSION: Normal EEG. Will Mccormick MD
[2017-08-06 07:18] LABS: HEMATOCRIT 39.6 % (42.0-52.0); MEAN CELL VOLUME 84.6 fl (80.0-105.0); MEAN CORPUSCULAR HEMOGLOBIN 29.1 pg (25.0-35.0); MEAN CORPUSCULAR HGB CONC 34.3 g/dl (31.0-37.0); MEAN PLATELET VOLUME 10.4 fl (7.0-11.0); RED CELL DISTRIBUTION WIDTH 13.5 % (11.5-14.5); WHITE BLOOD COUNT 6.3 10^3/ul (4.5-11.0)
[2017-08-06 07:23] LABS: ALB/GLOB RATIO 1.2 (1.1-1.8); ALKALINE PHOSPHATASE 53 U/L (38-126); ALT/SGPT 48 U/L (7-56); AST/SGOT 40 U/L (17-59); BILIRUBIN,TOTAL 0.6 mg/dL (0.2-1.3); BLOOD UREA NITROGEN 8 mg/dL (7-21); CALCIUM 9.2 mg/dL (8.4-10.5); CARBON DIOXIDE 28 mmol/L (21-33); CHLORIDE 105 mmol/L (98-107); GFR AFRICAN-AMERICAN > 60; GLUCOSE,RANDOM 95 mg/dL (70-110); MAGNESIUM 2.2 mg/dL (1.7-2.2); PHOSPHOROUS 2.6 mg/dL (2.5-4.5); POTASSIUM 3.7 mmol/L (3.6-5.0); SODIUM 142 mmol/L (132-148); TOTAL PROTEIN 6.9 g/dL (5.8-8.3)
--- NOTE | 2017-08-06 09:03 | PN ---
DATE: 08/06/2017 SUBJECTIVE: The patient has no complaints. No chest pain. No shortness of breath. No headaches. PHYSICAL EXAMINATION: VITAL SIGNS: Temperature is 97.6, pulse is 65, blood pressure 141/91, respiration is 18. GENERAL: The patient is lying in bed, flat, comfortable. HEENT: No oral lesion. Anicteric sclerae. Moist mucosa. NECK: No JVD, adenopathy, or thyromegaly. CARDIOVASCULAR: S1 and S2, regular. No murmurs, rubs, or gallops. LUNGS: Clear to auscultation bilaterally. No wheeze, rales, or rhonchi. ABDOMEN: Bowel sounds are positive, soft, nontender and nondistended. EXTREMITIES: No cyanosis, clubbing or edema. LABORATORY DATA: Creatinine 0.6, sodium is 142. ASSESSMENT: 1. Hyponatremia. 2. Hypokalemia, improved. 3. Rhabdomyolysis, resolved. 4. Hypertension. PLAN: The patient is currently comfortable. He is eating well. His sodium has normalized at this point. He is on Lovenox for DVT prophylaxis. He is on amlodipine for his hypertension. His blood pressure is controlled. He is on a dysphagia diet. Repeat his blood work tomorrow to follow his sodium and potassium. This is coverage for Dr. Mejias. Sukhjinder Dacosta MD
[2017-08-06] MEDS: Enoxaparin 40 mg Syringe SC SCH (11:00)
[2017-08-06] MEDS: cefTRIAXone 1 gm 1 GM/100 ML BAG IVPB SCH (11:01)
--- NOTE | 2017-08-06 11:34 | CP.PCM.CON ---
History of Present Illness - History of Present Illness History of Present Illness: Patient is a 47-year-old single white male who lives with his mother. I had seen him 2 days ago in the intensive care unit when he was being ventilated the sedating the influence of propofol. He carries a prior diagnosis of schizophrenia hospitalized at [facility] this past January Presently the patient is alert, oriented to 3 spheres, somewhat eccentric He presently is somewhat paranoid but is aware of this. He is not seeing or hearing anything. 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 He is not homicidal or suicidal. He intends to follow up with Dr. Valentino. ( Past Patient History - Infectious Disease Hx of Infectious Diseases: None - Tetanus Immunizations Tetanus Immunization: Up to Date - Past Social History Smoking Status: Light Smoker < 10 Cigarettes Daily - CARDIAC Hx Cardiac Disorders: Yes Hx Hypertension: Yes - PULMONARY Hx Respiratory Disorders: No - NEUROLOGICAL Hx Neurological Disorder: No - HEENT Hx HEENT Problems: No - RENAL Hx Chronic Kidney Disease: No - ENDOCRINE/METABOLIC Hx Endocrine Disorders: No - HEMATOLOGICAL/ONCOLOGICAL Hx Blood Disorders: No - INTEGUMENTARY Hx Dermatological Problems: No - MUSCULOSKELETAL/RHEUMATOLOGICAL Hx Musculoskeletal Disorders: Yes Hx Back Pain: Yes Hx Herniated Disk: Yes (neck /lower back) - GASTROINTESTINAL Hx Gastrointestinal Disorders: No - GENITOURINARY/GYNECOLOGICAL Hx Genitourinary Disorders: No - PSYCHIATRIC Hx Psychophysiologic Disorder: No Hx Anxiety: Yes Hx Depression: Yes Hx Schizophrenia: Yes Hx Substance Use: Yes (last use unk) - SURGICAL HISTORY Other/Comment: umbilical hernia repair - ANESTHESIA Hx Anesthesia: Yes Hx Anesthesia Reactions: No Hx Malignant Hyperthermia: No Meds Allergies/Adverse Reactions: Allergies Allergy/AdvReac Type Severity Reaction Status Date / Time No Known Allergies Allergy Verified 08/03/17 20:43 - Medications Medications: Current Medications Amlodipine Besylate (Norvasc) 10 mg PO DAILY [facility] Last Admin: 08/06/17 11:04 Dose: 10 mg Benzocaine/Menthol (Cepacol Sore Throat) 1 chas MT Q2H PRN PRN Reason: Sore Throat Last Admin: 08/05/17 07:53 Dose: 1 chas Enoxaparin Sodium (Lovenox) 40 mg SC DAILY [facility] PRN Reason: Protocol Last Admin: 08/06/17 11:00 Dose: 40 mg Metronidazole (Flagyl) 500 mg in 100 mls @ 100 mls/hr IVPB Q8 [facility] PRN Reason: Protocol Last Admin: 08/06/17 06:26 Dose: 100 mls/hr Ceftriaxone Sodium (Rocephin 1 Gram Ivpb) 1 gm in 100 mls @ 100 mls/hr IVPB DAILY [facility] PRN Reason: Protocol Last Admin: 08/06/17 11:01 Dose: 100 mls/hr Lorazepam (Ativan) 2 mg IVP Q4H PRN; Protocol PRN Reason: Agitation Last Admin: 08/05/17 18:38 Dose: 2 mg Pantoprazole Sodium (Protonix Susp) 40 mg PO 0600 [facility] Last Admin: 08/06/17 06:31 Dose: 40 mg Results - Vital Signs Recent Vital Signs: Last Vital Signs Temp 97.6 F 08/06/17 07:30 Pulse 55 L 08/06/17 07:30 Resp 18 08/06/17 07:30 BP 141/91 H 08/06/17 11:04 Pulse Ox 96 08/06/17 07:30 - Labs Result Diagrams: 08/06/17 06:15 08/06/17 06:15 Labs: Laboratory Results - last 24 hr 08/05/17 08/05/17 08/05/17 11:00 11:45 18:45 WBC RBC Hgb Hct MCV MCH MCHC RDW Plt Count MPV Sodium 137 138 Potassium 3.8 3.2 L Chloride 101 101 Carbon Dioxide 28 27 Anion Gap 12 13 BUN 6 L 7 Creatinine 0.6 0.5 Est GFR ( Amer) > 60 > 60 Est GFR (Non-Af Amer) > 60 > 60 Random Glucose 111 H 104 Calcium 8.5 8.9 Phosphorus Magnesium Total Bilirubin AST ALT Alkaline Phosphatase Total Protein Albumin Globulin Albumin/Globulin Ratio Urine Osmolality 516 Ur Random Sodium 100 08/06/17 08/06/17 06:15 06:15 WBC 6.3 D RBC 4.68 Hgb 13.6 L Hct 39.6 L MCV 84.6 MCH 29.1 MCHC 34.3 RDW 13.5 Plt Count 192 MPV 10.4 Sodium 142 Potassium 3.7 Chloride 105 Carbon Dioxide 28 Anion Gap 13 BUN 8 Creatinine 0.6 Est GFR ( Amer) > 60 Est GFR (Non-Af Amer) > 60 Random Glucose 95 Calcium 9.2 Phosphorus 2.6 Magnesium 2.2 Total Bilirubin 0.6 AST 40 ALT 48 Alkaline Phosphatase 53 Total Protein 6.9 Albumin 3.8 Globulin 3.1 Albumin/Globulin Ratio 1.2 Urine Osmolality Ur Random Sodium
[2017-08-06 18:04] VITALS: BP 115/78; PULSE 70; RESP 20; TEMP 98; O2SAT 98
--- NOTE | 2017-08-06 18:49 | CP.PCM.DIS ---
Provider - Provider Date of Admission: 08/03/17 20:27 Attending physician: Luz Marina Coto MD Primary care physician: Ismael Kwon MD Consults: Neuro - Dr. Harman Coto Psych - Dr. Chavez Nephro - Dr. Mejias Time Spent in preparation of Discharge (in minutes): 40 Hospital Course - Lab Results Lab Results: Micro Results 08/03/17 22:10 Blood Blood Culture - Preliminary NO GROWTH AFTER 48 HOURS 08/03/17 21:45 Blood Blood Culture - Preliminary NO GROWTH AFTER 48 HOURS 08/03/17 21:44 Nose MRSA Culture (Admit) - Final MRSA NOT DETECTED Most Recent Lab Values WBC 6.3 10^3/ul (4.5-11.0) D 08/06/17 06:15 RBC 4.68 10^6/uL (3.5-6.1) 08/06/17 06:15 Hgb 13.6 g/dL (14.0-18.0) L 08/06/17 06:15 Hct 39.6 % (42.0-52.0) L 08/06/17 06:15 MCV 84.6 fl (80.0-105.0) 08/06/17 06:15 MCH 29.1 pg (25.0-35.0) 08/06/17 06:15 MCHC 34.3 g/dl (31.0-37.0) 08/06/17 06:15 RDW 13.5 % (11.5-14.5) 08/06/17 06:15 Plt Count 192 10^3/uL (120.0-450.0) 08/06/17 06:15 MPV 10.4 fl (7.0-11.0) 08/06/17 06:15 Gran % 79.7 % (50.0-68.0) H 08/03/17 17:08 Lymph % (Auto) 6.8 % (22.0-35.0) L 08/03/17 17:08 [place] % (Auto) 12.4 % (1.0-6.0) H 08/03/17 17:08 Eos % (Auto) 0.8 % (1.5-5.0) L 08/03/17 17:08 Baso % (Auto) 0.3 % (0.0-3.0) 08/03/17 17:08 Gran # 12.64 (1.4-6.5) H 08/03/17 17:08 Lymph # 1.1 (1.2-3.4) L 08/03/17 17:08 [place] # 2.0 (0.1-0.6) H 08/03/17 17:08 Eos # 0.1 (0.0-0.7) 08/03/17 17:08 Baso # 0.05 K/mm3 (0.0-2.0) 08/03/17 17:08 PT 11.8 Seconds (9.9-11.8) 08/04/17 01:00 INR 1.09 (0.93-1.08) H 08/04/17 01:00 pCO2 33 mm/Hg (35-45) L 08/04/17 08:35 pO2 128.0 mm/Hg (80-100) H 08/04/17 08:35 HCO3 24.0 mmol/L (21-28) 08/04/17 08:35 ABG pH 7.47 (7.35-7.45) H 08/04/17 08:35 ABG Total CO2 25.0 mmol.L (22-28) 08/04/17 08:35 ABG O2 Saturation 99.5 % (95-98) H 08/04/17 08:35 ABG Base Excess 0.9 mmol/L (-2.0-3.0) 08/04/17 08:35 ABG Potassium 3.2 mmol/L (3.6-5.2) L 08/04/17 08:35 Sodium 132.0 mmol/L (132-148) 08/04/17 08:35 Chloride 102.0 mmol/L (98-107) 08/04/17 08:35 Glucose 107 mg/dl (75-110) 08/04/17 08:35 Lactate 0.5 mmol/L (0.7-2.1) L 08/04/17 08:35 Mechanical Rate 16 08/04/17 08:35 FiO2 40.0 % 08/04/17 08:35 Tidal Volume 500 08/04/17 08:35 PEEP 5 08/04/17 08:35 Sodium 142 mmol/L (132-148) 08/06/17 06:15 Potassium 3.7 mmol/L (3.6-5.0) 08/06/17 06:15 Chloride 105 mmol/L (98-107) 08/06/17 06:15 Carbon Dioxide 28 mmol/L (21-33) 08/06/17 06:15 Anion Gap 13 (10-20) 08/06/17 06:15 BUN 8 mg/dL (7-21) 08/06/17 06:15 Creatinine 0.6 mg/dL (0.5-1.4) 08/06/17 06:15 Est GFR ( Amer) > 60 08/06/17 06:15 Est GFR (Non-Af Amer) > 60 08/06/17 06:15 Random Glucose 95 mg/dL (70-110) 08/06/17 06:15 Serum Osmolality 286 mosm/kg (271-296) 08/04/17 01:00 Calcium 9.2 mg/dL (8.4-10.5) 08/06/17 06:15 Phosphorus 2.6 mg/dL (2.5-4.5) 08/06/17 06:15 Magnesium 2.2 mg/dL (1.7-2.2) 08/06/17 06:15 Total Bilirubin 0.6 mg/dL (0.2-1.3) 08/06/17 06:15 AST 40 U/L (17-59) 08/06/17 06:15 ALT 48 U/L (7-56) 08/06/17 06:15 Alkaline Phosphatase 53 U/L (38-126) 08/06/17 06:15 Ammonia 12 umol/L (9-33) 08/03/17 20:40 Lactate Dehydrogenase 671 U/L (333-699) 08/04/17 11:48 Total Creatine Kinase 1352 U/L (35-230) H 08/04/17 11:48 CK-MB (CK-2) 18.3 ng/mL (0.0-3.6) H 08/04/17 11:48 CK-MB (CK-2) % 1.4 % (2.5-3.0) L 08/04/17 11:48 Troponin I < 0.01 ng/mL 08/04/17 11:48 Total Protein 6.9 g/dL (5.8-8.3) 08/06/17 06:15 Albumin 3.8 g/dL (3.0-4.8) 08/06/17 06:15 Globulin 3.1 gm/dL 08/06/17 06:15 Albumin/Globulin Ratio 1.2 (1.1-1.8) 08/06/17 06:15 Amylase 61 U/L (35-125) 08/03/17 17:08 Lipase 141 U/L (23-300) 08/03/17 17:08 Procalcitonin < 0.05 NG/ML (0.19-0.49) L 08/03/17 20:42 TSH 3rd Generation 2.12 mIU/mL (0.46-4.68) 08/03/17 17:08 Arterial Blood Potassium 3.2 mmol/L (3.6-5.2) L 08/04/17 08:35 Urine Color Yellow (YELLOW) 08/03/17 18:36 Urine Appearance Clear (CLEAR) 08/03/17 18:36 Urine pH 6.0 (4.7-8.0) 08/03/17 18:36 Ur Specific [place] 1.010 (1.005-1.035) 08/03/17 18:36 Urine Protein Negative mg/dL (<30 mg/dL) 08/03/17 18:36 Urine Glucose (UA) Negative mg/dL (NEGATIVE) 08/03/17 18:36 Urine Ketones 15 mg/dL (NEGATIVE) H 08/03/17 18:36 Urine Blood Small (NEGATIVE) H 08/03/17 18:36 Urine Nitrate Negative (NEGATIVE) 08/03/17 18:36 Urine Bilirubin Negative (NEGATIVE) 08/03/17 18:36 Urine Urobilinogen 0.2 E.U./dL (<1 E.U./dL) 08/03/17 18:36 Ur Leukocyte Esterase Negative [place]isa/uL (NEGATIVE) 08/03/17 18:36 Urine RBC 5 - 10 /hpf (0-2) 08/03/17 18:36 Urine WBC 2 - 5 /hpf (0-6) 08/03/17 18:36 Ur Epithelial Cells 3 - 4 /hpf (0-5) 08/03/17 18:36 Urine Bacteria Mod (NEG) 08/03/17 18:36 Urine Osmolality 516 mosm/kg (50-645) 08/05/17 11:00 Ur Random Creatinine 55 mg/dL 08/03/17 20:42 Ur Random Sodium 100 meq/L 08/05/17 11:00 Urine Chloride 31 mmol/L (32-290) L 08/03/17 20:42 Salicylates < 1 mg/dL (2.0-20.0) L 08/03/17 18:29 Urine Opiates Screen Positive (NEGATIVE) H 08/03/17 18:36 Urine Methadone Screen Negative (NEGATIVE) 08/03/17 18:36 Acetaminophen < 10.0 ug/ml (10.0-20.0) L 08/03/17 18:29 Ur Barbiturates Screen Negative (NEGATIVE) 08/03/17 18:36 Ur Phencyclidine Scrn Negative (NEGATIVE) 08/03/17 18:36 Ur Amphetamines Screen Negative (NEGATIVE) 08/03/17 18:36 U Benzodiazepines Scrn Negative (NEGATIVE) 08/03/17 18:36 [place] < 0.2 mmol/L (0.5-1.3) L 08/03/17 18:29 U Oth Cocaine Metabols Negative (NEGATIVE) 08/03/17 18:36 U Cannabinoids Screen Negative (NEGATIVE) 08/03/17 18:36 Alcohol, Quantitative < 10 mg/dL (0-10) 08/03/17 17:08 - Hospital Course Hospital Course: Patient is a 47 yo male with PMH of schizophrenia, HTN, and herniated disk who presented with AMS post reported nausea, vomiting, and diarrhea. On admission patient was hyponatremia, and hypokalemia. He became violent in the ED with associated tachycardia, hypereflexia and diaphoresis w/o fever (but L[place]uocytosis ) or dilated pupils. Patient was given multiple doses of Haldol, Ativan, and Bendrayl for sedation. Hospital course was complicated with Rhabdomyolysis 2/2 to violent episode. Post sedation, patient was intubated for airway protection. Poison control has been notified because of a high suspicion for possible serotonin syndrome and they recommended supportive care and PRN IV Benzodiazepines for agitation and/or spasticity. Patient was initially started on NS IV @125cc/hr with serial BMPs checks for close monitoring of serum sodium levels. After just 3 hours, the patients serum sodium increased from 121 to 126 and therefore IVFs were discontinued. Although all IVFs had been discontinued, the next serum sodium (checked 4 hours later) was markedly increased at 137. Consequently, in an attempt to avoid CPM, D5W IVF boluses have been started alongside Desmopressin 2mcg IV Q6hrs X3 (first dose given at approx. 3:15AM). Nephrology, psychiatry and neurology consults have all been placed for further recommendations. All electrolyte abnormalities have been corrected. Patient was treated with Rocephin/Flagyl for the suspicion of gastritis due to elevated WBC, clinical symptoms, and suspicions of possible EtoH abuse. Leukocytosis resolved, blood and urine cultures are negative. Nasal culture for MRSA was negative. Relevant studies are below. Patient will continue with his home medications at home. He will follow up with his PMD and Psychiatrist within 1 week. Patient was called the following day to reinforce the improtance of following up with PMD ( especially for electrolyte check) and Psychiatrist Patient is agreeable to this plan. EEG: Normal EKG: Normal Sinus Rhythm; Right [place] Deviation. CXR: No Active Disease. Head CT: No intracranial hemorrhage or mass effect. CT Abd/Pel: Bilateral perinephric inflammatory changes. Far advanced from what one would expect with age. Moderate ductal dilation within the pancreas without a discrete mass identified. Mural thickening suggestive of acute enteritis Patient has been seen, reviewed, and discussed with Attending Jethro Abdi PGY1 - Date & Time of H&P Date of H&P: 08/06/17 Time of H&P: 21:38 Discharge Exam - Head Exam Head Exam: ATRAUMATIC, NORMOCEPHALIC - Eye Exam Eye Exam: EOMI, Normal appearance - ENT Exam ENT Exam: Mucous Membranes Moist - Respiratory Exam Respiratory Exam: Clear to PA & Lateral, Rhonchi, NORMAL BREATHING PATTERN, UNREMARKABLE. absent: Wheezes - Cardiovascular Exam Cardiovascular Exam: +S1, +S2 - GI/Abdominal Exam GI & Abdominal Exam: Normal Bowel Sounds - Neurological Exam Neurological exam: Alert, Oriented x3 - Psychiatric Exam Psychiatric exam: Normal Affect, Normal Mood Additional comments: No Suicidal or Homicidal ideation. Discharge Plan - Follow Up Plan Condition: STABLE Disposition: HOME/ ROUTINE Instructions: Hyponatremia (DC), Schizophrenia (DC) Additional Instructions: Follow up with primary physician within 1 week Follow up with Psychiatrist (Dr. Rasmussen) within 1 week Referrals: Ismael Kwon MD [Primary Care Provider] - Issa Rasmussen MD [Medical Doctor] -
== END 2017-08-06 23:15 | disposition home or self-care (01) | DRG 640 ==
LOC: ED 16:50 → ERH 20:27 → CCU 21:26 → 5RSO 08-05 15:23
PROVIDERS: ADMIT Internal Medicine; ATTEND Hospitalist
PROC: 5A1935Z Respiratory Ventilation, Less than 24 Consecutive Hours (ICD-10-PCS; principal; 2017-08-03)
PROC: 0BH17EZ Insertion of Endotracheal Airway into Trachea, Via Natural or Artificial Opening (ICD-10-PCS; 2017-08-03)
DX: E87.1 Hypo-osmolality and hyponatremia (principal); J96.90 Respiratory failure, unspecified, unspecified whether with hypoxia or hypercapnia; E86.9 Volume depletion, unspecified; G92 Toxic encephalopathy; M62.82 Rhabdomyolysis; E87.6 Hypokalemia; F20.9 Schizophrenia, unspecified; I10 Essential (primary) hypertension; F12.90 Cannabis use, unspecified, uncomplicated; R33.0 Drug induced retention of urine; T40.2X5A Adverse effect of other opioids, initial encounter; K52.9 Noninfective gastroenteritis and colitis, unspecified; F43.10 Post-traumatic stress disorder, unspecified; K29.00 Acute gastritis without bleeding; J02.9 Acute pharyngitis, unspecified; G89.29 Other chronic pain; M54.5 Low back pain; F11.10 Opioid abuse, uncomplicated; F17.210 Nicotine dependence, cigarettes, uncomplicated

== ENCOUNTER 2018-01-20 00:07 | Emergency (ER) | payer BC ==
[2018-01-20 00:09] VITALS: BMI 26.8
[2018-01-20 02:06] VITALS: BP 154/98; PULSE 104; RESP 18; TEMP 98.3; O2SAT 95
--- NOTE | 2018-01-20 04:02 | ED PDOC ---
Arrival/HPI - General Chief Complaint: Abdominal Pain Time Seen by Provider: 01/20/18 02:38 Historian: Patient - History of Present Illness Narrative History of Present Illness (Text): 01/20/18 04:05 A 47 year old male, whose past medical history includes schizophrenia, radiculopathy, and chronic back pain, presents to the emergency department complaining of constipation. Patient reports taking Oxycodone for chronic back pain. Notes also experiencing pulling sensation to groin, which he has felt for over a year now and has seen doctor for issue. Patient denies abdominal pain, back pain, vomiting, fever, chills, or any other complaints. No PMD Past Medical History - Provider Review Nursing Documentation Reviewed: Yes - Infectious Disease Hx of Infectious Diseases: None - Tetanus Immunization Tetanus Immunization: Up to Date - Past Medical History Past Medical History: No Previous - Cardiac Hx Cardiac Disorders: Yes Hx Hypertension: Yes - Pulmonary Hx Respiratory Disorders: No - Neurological Hx Neurological Disorder: No - HEENT Hx HEENT Disorder: No - Renal Hx Renal Disorder: No - Endocrine/Metabolic Hx Endocrine Disorders: No - Hematological/Oncological Hx Blood Disorders: No - Integumentary Hx Dermatological Disorder: No - Musculoskeletal/Rheumatological Hx Musculoskeletal Disorders: Yes Hx Back Pain: Yes Hx Herniated Disk: Yes (neck /lower back) - Gastrointestinal Hx Gastrointestinal Disorders: No - Genitourinary/Gynecological Hx Genitourinary Disorders: No Other/Comment: cyst left kidney - Psychiatric Hx Psychophysiologic Disorder: No Hx Anxiety: Yes Hx Depression: Yes Hx Schizophrenia: Yes Hx Substance Use: Yes (medical marijuana) - Past Surgical History Past Surgical History: No Previous - Surgical History Other/Comment: umbilical hernia repair - Anesthesia Hx Anesthesia: Yes Hx Anesthesia Reactions: No Hx Malignant Hyperthermia: No - Suicidal Assessment Feels Threatened In Home Enviroment: No Family/Social History - Physician Review Nursing Documentation Reviewed: Yes Family/Social History: No Known Family HX Smoking Status: Light Smoker < 10 Cigarettes Daily Hx Alcohol Use: No (DENIES) Hx Substance Use: Yes (medical marijuana) Substance used: marijuana Hx Substance Use Treatment: No Allergies/Home Meds Allergies/Adverse Reactions: Allergies No Known Allergies Allergy (Verified 01/20/18 02:01) Home Medications: Home Meds Medication Instructions Recorded Confirmed oxyCODONE [oxyCODONE Immediate 30 mg PO TID 08/03/17 01/20/18 Release Tab] Review of Systems - Physician Review All systems were reviewed & negative as marked: Yes - Review of Systems Constitutional: absent: Fevers, Night Sweats Gastrointestinal: Constipation. absent: Abdominal Pain, Vomiting Genitourinary Male: Other (pulling sensation to groin (had for over a year now)) Musculoskeletal: absent: Back Pain Physical Exam Vital Signs Reviewed: Yes Vital Signs Temp Pulse Resp BP Pulse Ox 01/20/18 02:01 98.3 F 104 H 18 154/98 H 95 Temperature: Afebrile Blood Pressure: Hypertensive Pulse: Regular Respiratory Rate: Normal Appearance: Positive for: Well-Appearing Pain Distress: None Mental Status: Positive for: Alert and Oriented X 3 - Systems Exam Head: Present: Atraumatic, Normocephalic Pupils: Present: PERRL Extroacular Muscles: Present: EOMI Conjunctiva: Present: Normal Mouth: Present: Moist Mucous Membranes Neck: Present: Normal Range of Motion Respiratory/Chest: Present: Clear to Auscultation, Good Air Exchange. No: Respiratory Distress, Accessory Muscle Use Cardiovascular: Present: Regular Rate and Rhythm, Normal S1, S2. No: Murmurs Abdomen: Present: Normal Bowel Sounds. No: Tenderness, Distention, Peritoneal Signs Genitourinary Male: Present: Other (testes distended bilaterally). No: Hernias Back: Present: Normal Inspection Upper Extremity: Present: Normal Inspection. No: Cyanosis, Edema Lower Extremity: Present: Normal Inspection. No: Edema Neurological: Present: GCS=15, CN II-XII Intact, Speech Normal Skin: Present: Warm, Dry, Normal Color. No: Rashes Psychiatric: Present: Alert, Oriented x 3, Normal Insight, Normal Concentration Medical Decision Making ED Course and Treatment: 01/20/18 04:07 Impression: 47 year old male with constipation, as well as pulling sensation to groin (had for over a year now). Physical examination is benign. Plan: -- Reassess and disposition Progress Notes: - Scribe Statement The provider has reviewed the documentation as recorded by the Cherry Zaragoza Provider Scribe Attestation: All medical record entries made by the Scribe were at my direction and personally dictated by me. I have reviewed the chart and agree that the record accurately reflects my personal performance of the history, physical exam, medical decision making, and the department course for this patient. I have also personally directed, reviewed, and agree with the discharge instructions and disposition. Disposition/Present on Arrival - Present on Arrival Any Indicators Present on Arrival: No History of DVT/PE: No History of Uncontrolled Diabetes: No Urinary Catheter: No History of Decub. 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
== END 2018-01-20 06:54 | disposition home or self-care (01) ==
LOC: ED 00:07
DX: K59.00 Constipation, unspecified (principal); S39.011A Strain of muscle, fascia and tendon of abdomen, initial encounter; X58.XXXA Exposure to other specified factors, initial encounter; I10 Essential (primary) hypertension; F17.210 Nicotine dependence, cigarettes, uncomplicated

== ENCOUNTER 2018-03-24 23:37 | Emergency (ER) | payer BC ==
[2018-03-24 23:37] VITALS: BMI 26.8
--- NOTE | 2018-03-25 00:09 | ED PDOC ---
Arrival/HPI - General Chief Complaint: High Blood Pressure Time Seen by Provider: 03/24/18 23:41 Historian: Patient - History of Present Illness Narrative History of Present Illness (Text): 03/25/18 00:06 A 47 year old male, whose past medical history includes schizophrenia, radiculopathy, and chronic back pain, presents to the emergency department complaining of feeling dizzy with "wobbly" gait. He also stated his blood pressure has been elevated. His doctor prescribed him a new BP medication today. He is taking Valsrtan/HTZ, and Norvasc. Patient denies sob, cp, abdominal pain, or urinary symptoms. Time/Duration: Other (see hpi) Context: Home Past Medical History - Provider Review Nursing Documentation Reviewed: Yes - Infectious Disease Hx of Infectious Diseases: None - Tetanus Immunization Tetanus Immunization: Up to Date - Past Medical History Past Medical History: No Previous - Cardiac Hx Cardiac Disorders: Yes Hx Hypertension: Yes - Pulmonary Hx Respiratory Disorders: No - Neurological Hx Neurological Disorder: No - HEENT Hx HEENT Disorder: No - Renal Hx Renal Disorder: No - Endocrine/Metabolic Hx Endocrine Disorders: No - Hematological/Oncological Hx Blood Disorders: No - Integumentary Hx Dermatological Disorder: No - Musculoskeletal/Rheumatological Hx Musculoskeletal Disorders: Yes Hx Back Pain: Yes Hx Herniated Disk: Yes (neck /lower back) - Gastrointestinal Hx Gastrointestinal Disorders: No - Genitourinary/Gynecological Hx Genitourinary Disorders: No Other/Comment: cyst left kidney - Psychiatric Hx Psychophysiologic Disorder: No Hx Anxiety: Yes Hx Depression: Yes Hx Schizophrenia: Yes Hx Substance Use: Yes (medical marijuana) - Past Surgical History Past Surgical History: No Previous - Surgical History Other/Comment: umbilical hernia repair - Anesthesia Hx Anesthesia: Yes Hx Anesthesia Reactions: No Hx Malignant Hyperthermia: No - Suicidal Assessment Feels Threatened In Home Enviroment: No Family/Social History - Physician Review Nursing Documentation Reviewed: Yes Family/Social History: Other (noncontributory) Smoking Status: Light Smoker < 10 Cigarettes Daily Hx Alcohol Use: No (DENIES) Hx Substance Use: Yes (medical marijuana) Substance used: marijuana Hx Substance Use Treatment: No Allergies/Home Meds Allergies/Adverse Reactions: Allergies No Known Allergies Allergy (Verified 03/24/18 23:59) Home Medications: Home Meds Medication Instructions Recorded Confirmed oxyCODONE [oxyCODONE Immediate 30 mg PO TID 08/03/17 03/25/18 Release Tab] Review of Systems - Review of Systems Constitutional: Normal. absent: Fatigue, Weight Change, Fevers Eyes: Normal ENT: Normal. absent: Sore Throat Respiratory: Normal. absent: SOB, Cough, Sputum, Wheezing Cardiovascular: Other (HTN). absent: Chest Pain, Palpitations, Edema, Calf Pain , GOSS, Orthopnea, Syncope Gastrointestinal: Normal. absent: Abdominal Pain, Nausea, Vomiting Genitourinary Male: Normal Musculoskeletal: Normal Skin: Normal Neurological: Dizziness. absent: Headache, Focal Weakness, Gait Changes, Speech Changes, Facial Droop, Disequilibrium Endocrine: Normal Hemo/Lymphatic: Normal Psychiatric: Normal Physical Exam Vital Signs Temp Pulse Resp BP Pulse Ox 03/24/18 23:50 97.9 F 75 17 130/90 98 Temperature: Afebrile Blood Pressure: Normal Pulse: Regular Respiratory Rate: Normal Appearance: Positive for: Well-Appearing, Non-Toxic, Comfortable Pain Distress: None Mental Status: Positive for: Alert and Oriented X 3 - Systems Exam Head: Present: Atraumatic, Normocephalic Pupils: Present: PERRL Extroacular Muscles: Present: EOMI Conjunctiva: Present: Normal Mouth: Present: Moist Mucous Membranes Neck: Present: Normal Range of Motion Respiratory/Chest: Present: Clear to Auscultation, Good Air Exchange. No: Respiratory Distress, Accessory Muscle Use Cardiovascular: Present: Regular Rate and Rhythm, Normal S1, S2. No: Murmurs Abdomen: No: Tenderness, Distention, Peritoneal Signs Back: Present: Normal Inspection Upper Extremity: Present: Normal Inspection. No: Cyanosis, Edema Lower Extremity: Present: Normal Inspection. No: Edema Neurological: Present: GCS=15, CN II-XII Intact, Speech Normal, Motor Func Grossly Intact, Normal Sensory Function, Normal Cerebellar Funct, Gait Normal, Memory Normal Skin: Present: Warm, Dry, Normal Color. No: Rashes Psychiatric: Present: Alert, Oriented x 3, Normal Insight, Normal Concentration Medical Decision Making ED Course and Treatment: 03/25/18 02:15 Re-evaluation. Patient feels better. Discussed results and plan with patient who expresses understanding. All questions answered and there is agreement with the plan to discharge home with instructions. Patient stable for discharge. Return if symptoms persist or worsen. Re-evaluation Time: 02:15 Reassessment Condition: Re-examined, Improved - Lab Interpretations Lab Results: 03/25/18 01:06 03/25/18 01:06 Lab Results 03/25/18 01:06: Sodium 143, Potassium 3.5 L, Chloride 105, Carbon Dioxide 31, Anion Gap 11, BUN 17, Creatinine 0.8, Est GFR ( Amer) > 60, Est GFR (Non- Af Amer) > 60, Random Glucose 115 H, Calcium 8.8, Total Bilirubin 0.2, AST 32, ALT 41, Alkaline Phosphatase 54, Total Protein 6.3, Albumin 3.6, Globulin 2.7, Albumin/Globulin Ratio 1.4 03/25/18 01:06: WBC 5.2, RBC 4.37, Hgb 12.6 L D, Hct 38.7 L, MCV 88.6, MCH 28.8 , MCHC 32.6, RDW 13.6, Plt Count 187, MPV 10.5, Gran % 53.1, Lymph % (Auto) 32.6 , [place] % (Auto) 9.8 H, Eos % (Auto) 3.5, Baso % (Auto) 1.0, Gran # 2.75, Lymph # (Auto) 1.7, [place] # (Auto) 0.5, Eos # (Auto) 0.2, Baso # (Auto) 0.05 I have reviewed the lab results: Yes Interpretation: No clinic. lab abnormalty - RAD Interpretation Narrative RAD Interpretations (Text): 03/25/18 02:15 CT Scan HEAD W/O CONTRAST Exam Date: 03/25/18 FINDINGS: Brain: No intracranial hemorrhage. No mass. No definite edema. Ventricles: No hydrocephalus. Bones/joints: No acute fracture. Soft tissues: Unremarkable. Sinuses: Mild focal mucosal thickening/retention cyst of LEFT maxillary sinus. Mastoid air cells: No mastoid effusion. Orbits: Unremarkable as visualized. IMPRESSION: 1. No definite acute intracranial abnormality. 2. Incidental/non-acute findings are described above. Radiology Orders: 03/25/18 00:04 HEAD W/O CONTRAST [CT] Stat - Medication Orders Current Medication Orders: Discontinued Medications Meclizine HCl (Antivert) 50 mg PO STAT STA Stop: 03/25/18 00:06 Last Admin: 03/25/18 00:15 Dose: 50 mg Disposition/Present on Arrival - Present on Arrival Any Indicators Present on Arrival: No History of DVT/PE: No History of Uncontrolled Diabetes: No Urinary Catheter: No History of Decub. Ulcer: No History Surgical Site Infection Following: None - Disposition Have Diagnosis and Disposition been Completed?: Yes Diagnosis: Vertigo, Hypertension Disposition: HOME/ ROUTINE Disposition Time: 02:17 Patient Plan: Discharge Condition: IMPROVED Discharge Instructions (ExitCare): Vertigo (a Type of Dizziness), High Blood Pressure in Adults, Low Salt Diet Additional Instructions: Call private doctor for follow up visit in 1-2 days. Take medication as instructed. return to emergency if symptoms worsen. Prescriptions: Meclizine [Meclizine*] 25 mg PO Q6 PRN #30 tab PRN Reason: Dizziness Referrals: Bob Sierra MD [Primary Care Provider] - Follow up with primary Forms: [employer] (Sami)
[2018-03-25 01:30] LABS: BASO # 0.05 K/mm3 (0.0-2.0); EOS # 0.2 (0.0-0.7); EOS % 3.5 % (1.5-5.0); GRAN # 2.75 (1.4-6.5); GRAN % 53.1 % (50.0-68.0); LYMPH # 1.7 (1.2-3.4); LYMPH % 32.6 % (22.0-35.0); MEAN CELL VOLUME 88.6 fl (80.0-105.0); MEAN CORPUSCULAR HEMOGLOBIN 28.8 pg (25.0-35.0); MEAN CORPUSCULAR HGB CONC 32.6 g/dl (31.0-37.0); MEAN PLATELET VOLUME 10.5 fl (7.0-11.0); MONO # 0.5 (0.1-0.6); MONO % 9.8 % (1.0-6.0); RBC 4.37 10^6/uL (3.5-6.1); RED CELL DISTRIBUTION WIDTH 13.6 % (11.5-14.5); WHITE BLOOD COUNT 5.2 10^3/ul (4.5-11.0)
[2018-03-25 01:32] LABS: HEMOGLOBIN 12.6 g/dL (14.0-18.0)
--- NOTE | 2018-03-25 01:36 | CT ---
EXAM: CT Head Without Intravenous Contrast CLINICAL HISTORY: 47 years old, male; Signs and symptoms; Dizziness TECHNIQUE: Axial computed tomography images of the head/brain without intravenous contrast. All CT scans at this facility use one or more dose reduction techniques, viz.: automated exposure control; ma/kV adjustment per patient size (including targeted exams where dose is matched to indication; i.e. head); or iterative reconstruction technique. Coronal and sagittal reformatted images were created and reviewed. COMPARISON: CT - HEAD W/O CONTRAST 2017-08-03 20:48 FINDINGS: Brain: No intracranial hemorrhage. No mass. No definite edema. Ventricles: No hydrocephalus. Bones/joints: No acute fracture. Soft tissues: Unremarkable. Sinuses: Mild focal mucosal thickening/retention cyst of LEFT maxillary sinus. Mastoid air cells: No mastoid effusion. Orbits: Unremarkable as visualized. IMPRESSION: 1. No definite acute intracranial abnormality. 2. Incidental/non-acute findings are described above.
[2018-03-25 01:38] LABS: ALB/GLOB RATIO 1.4 (1.1-1.8); ALBUMIN 3.6 g/dL (3.0-4.8); ALT/SGPT 41 U/L (7-56); AST/SGOT 32 U/L (17-59); BLOOD UREA NITROGEN 17 mg/dL (7-21); CALCIUM 8.8 mg/dL (8.4-10.5); GFR AFRICAN-AMERICAN > 60; GFR NON-AFRICAN AMERICAN > 60
[2018-03-25 02:30] VITALS: TEMP 98
[2018-03-25 02:47] VITALS: BP 130/90; PULSE 70; RESP 19; O2SAT 100
== END 2018-03-25 02:47 | disposition home or self-care (01) ==
LOC: ED 23:37
DX: I10 Essential (primary) hypertension (principal); R42 Dizziness and giddiness; F17.210 Nicotine dependence, cigarettes, uncomplicated

== ENCOUNTER 2018-09-14 18:40 | Emergency (ER) | payer BC ==
[2018-09-14 20:02] VITALS: BMI 23.7
[2018-09-14 20:04] VITALS: RESP 18
--- NOTE | 2018-09-14 21:32 | ED PDOC ---
Arrival/HPI - General Chief Complaint: Flu-like Symptoms Time Seen by Provider: 09/14/18 20:17 Historian: Patient - History of Present Illness Narrative History of Present Illness (Text): 09/14/18 21:29 48 yo M w/ PMH of schizophrenia, PTSD, vertigo presents c/o 2 day h/o flu like symptoms with chills, bodyaches, weakness, runny nose, nasal congestion and cough. 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 Denies any fever, CP, SOB, abdominal pain, N/V/D, urinary symptoms, recent travel, sick contacts. PMD Cher Past Medical History - Infectious Disease Hx of Infectious Diseases: None - Tetanus Immunization Tetanus Immunization: Up to Date - Past Medical History Past Medical History: No Previous - Cardiac Hx Cardiac Disorders: Yes Hx Hypertension: Yes - Pulmonary Hx Respiratory Disorders: No - Neurological Hx Neurological Disorder: No - HEENT Hx HEENT Disorder: No - Renal Hx Renal Disorder: No - Endocrine/Metabolic Hx Endocrine Disorders: No - Hematological/Oncological Hx Blood Disorders: No - Integumentary Hx Dermatological Disorder: No - Musculoskeletal/Rheumatological Hx Musculoskeletal Disorders: Yes Hx Back Pain: Yes Hx Herniated Disk: Yes (neck /lower back) - Gastrointestinal Hx Gastrointestinal Disorders: No - Genitourinary/Gynecological Hx Genitourinary Disorders: No Other/Comment: cyst left kidney - Psychiatric Hx Psychophysiologic Disorder: Yes Hx Anxiety: Yes Hx Depression: Yes Hx Schizophrenia: Yes Hx Substance Use: Yes (medical marijuana) - Past Surgical History Past Surgical History: No Previous - Surgical History Other/Comment: umbilical hernia repair - Anesthesia Hx Anesthesia: Yes Hx Anesthesia Reactions: No Hx Malignant Hyperthermia: No - Suicidal Assessment Feels Threatened In Home Enviroment: No Family/Social History Family/Social History: Unknown Family HX Smoking Status: Light Smoker < 10 Cigarettes Daily Hx Alcohol Use: No (DENIES) Hx Substance Use: Yes (medical marijuana) Substance used: marijuana Hx Substance Use Treatment: No Allergies/Home Meds Allergies/Adverse Reactions: Allergies No Known Allergies Allergy (Verified 09/14/18 20:02) Home Medications: Home Meds Medication Instructions Recorded Confirmed oxyCODONE [oxyCODONE Immediate 30 mg PO TID 08/03/17 03/25/18 Release Tab] Review of Systems - Review of Systems Constitutional: Fatigue, Fevers ENT: Rhinorrhea, Sinus Congestion. absent: Sore Throat Respiratory: Cough. absent: SOB Cardiovascular: absent: Chest Pain, Palpitations Gastrointestinal: absent: Abdominal Pain, Diarrhea, Vomiting Genitourinary Male: absent: Dysuria, Frequency, Hematuria Musculoskeletal: Arthralgias, Myalgias. absent: Back Pain, Neck Pain Skin: absent: Rash, Pruritis, Skin Lesions Neurological: absent: Headache, Dizziness Physical Exam Vital Signs Temp Pulse Resp BP Pulse Ox 09/14/18 20:03 98.5 F 68 18 147/92 H 97 Temperature: Afebrile Blood Pressure: Hypertensive Pulse: Regular Respiratory Rate: Normal Appearance: Positive for: Well-Appearing, Non-Toxic, Comfortable Pain Distress: None Mental Status: Positive for: Alert and Oriented X 3 - Systems Exam Head: Present: Atraumatic, Normocephalic Pupils: Present: PERRL Extroacular Muscles: Present: EOMI Conjunctiva: Present: Normal Ears: Present: Normal, NORMAL TM, Normal Canal. No: Erythema Mouth: Present: Moist Mucous Membranes Pharnyx: Present: Normal. No: ERYTHEMA, EXUDATE, TONSILS ENLARGED, Uvular Deviation Neck: Present: Normal Range of Motion. No: Meningeal Signs, MIDLINE TENDERNESS, Lymphadenopathy Respiratory/Chest: Present: Clear to Auscultation, Good Air Exchange. No: Respiratory Distress, Accessory Muscle Use Cardiovascular: Present: Regular Rate and Rhythm, Normal S1, S2. No: Murmurs Abdomen: No: Tenderness, Distention, Peritoneal Signs Back: Present: Normal Inspection Upper Extremity: Present: Normal Inspection. No: Cyanosis, Edema Lower Extremity: Present: Normal Inspection. No: Edema Neurological: Present: GCS=15, CN II-XII Intact, Speech Normal Skin: Present: Warm, Dry, Normal Color. No: Rashes Psychiatric: Present: Alert, Oriented x 3, Normal Insight, Normal Concentration Medical Decision Making ED Course and Treatment: 09/14/18 21:32 Plan : - CXR - Rapid Flu CXR : NAD, as read by MOSHE Rapid flu : (-) On re-evaluation, patient laying comfortably in bed, denies any fever, CP or SOB. On exam, patient remains AAOx3, in no acute distress. Diagnostic results d/w the patient in great detail. Diagnosis of viral illness d/w the patient. Based on history, exam and diagnostic results, plan will be for outpatient follow up. Patient instructed to follow-up with pmd in 1-2 days without fail. Advised to take otc tylenol or motrin for fever. Return to the emergency room at any time for any new or worsening symptoms. Patient states he fully agrees with and understands discharge instructions. States that he agrees with the plan and disposition. Verbalized and repeated discharge instructions and plan. I have given the patient opportunity to ask any additional questions. - RAD Interpretation Radiology Orders: 09/14/18 20:42 CHEST TWO VIEWS (PA/LAT) [RAD] Stat - PA / CHANNELING [employer]ACHINE [employer]NER / Resident Statement MD/DO has reviewed & agrees with the documentation as recorded. Disposition/Present on Arrival - Present on Arrival Any Indicators Present on Arrival: No History of DVT/PE: No History of Uncontrolled Diabetes: No Urinary Catheter: No History of Decub. Ulcer: No History Surgical Site Infection Following: None - Disposition Have Diagnosis and Disposition been Completed?: Yes Diagnosis: Viral illness Disposition: HOME/ ROUTINE Disposition Time: 23:00 Patient Plan: Discharge Condition: STABLE Discharge Instructions (ExitCare): Viral Upper Respiratory Infection, Adult (DC) Additional Instructions: Thank you for letting us take care of you today. You were treated for viral illness. The emergency medical care you received today was directed at your acute symptoms. Bed, rest, drink plenty of fluids, take over the counter tylenol or motrin for fever. It may take several days for your symptoms to resolve. Return to the Emergency Department if your symptoms worsen, do not improve, or if you have any other problems. Please contact your doctor in 2 days for re-evaluation and follow up. Bring any paperwork you were given at discharge with you along with any medications you are taking to your follow up visit. Our treatment cannot replace ongoing medical care by a primary care provider (PCP) outside of the emergency department. Thank you for allowing the [facility] team to be part of your care today. If you had an X-Ray : A Radiologist will review the ED reading if any change in treatment is needed we will contact you. Referrals: Cher THAKUR,Pablito Espino MD [Primary Care Provider] - Follow up with primary Forms: [employer] (Indonesian), WORK NOTE
[2018-09-14 23:35] VITALS: BP 137/71; PULSE 72; TEMP 98.2; O2SAT 99
--- NOTE | 2018-09-15 09:48 | RAD ---
Date of service: 09/14/2018 HISTORY: cough COMPARISON: No prior. TECHNIQUE: Chest PA and lateral FINDINGS: LUNGS: No active pulmonary disease. PLEURA: No significant pleural effusion identified. No pneumothorax apparent. CARDIOVASCULAR: Normal. OSSEOUS STRUCTURES: No significant abnormalities. VISUALIZED UPPER ABDOMEN: Normal. OTHER FINDINGS: Mild aortic tortuosity IMPRESSION: No active disease.
== END 2018-09-14 23:46 | disposition home or self-care (01) ==
LOC: ED 18:40
DX: B34.9 Viral infection, unspecified (principal)

== ENCOUNTER 2019-04-23 01:18 | Emergency (ER) | payer BC ==
[2019-04-23 01:40] VITALS: BMI 24.3
[2019-04-23 01:45] VITALS: BP 132/75; PULSE 75; TEMP 98.2; O2SAT 99
--- NOTE | 2019-04-23 02:13 | ED PDOC ---
Arrival/HPI - General Chief Complaint: Back Pain Time Seen by Provider: 04/23/19 01:44 Historian: Patient - History of Present Illness Narrative History of Present Illness (Text): 04/23/19 02:11 A 48 year old male past medical history of schizophrenia, hypertension, and cervical lumbar herniated disk disease, presents to the emergency department with a complaint of chronic vertigo. Patient states he was diagnosed with this i n the past and had been on medication for similar symptoms but does not remember the name. Patient states that he is also under the care of a pain specialist for his herniated disk disease. He denies any neck or back pain. He does complain of occasional tightness to the antecubital area of his left forearm which he has had for a long time only when he wakes up in the morning. He denies any history of trauma, visual disturbances, leg/arm weakness, denies fevers, chills, headache, chest pain, shortness of breath, dyspnea on exertion, cough, abdominal pain, nausea, vomiting, diarrhea, back pain, neck pain, urinary/bowel changes, or any other complaint. Time/Duration: Prior to Arrival Symptom Onset: Sudden Symptom Course: Unchanged Activities at Onset: Rest, Light Context: Home Past Medical History - Provider Review Nursing Documentation Reviewed: Yes - Infectious Disease Hx of Infectious Diseases: None - Tetanus Immunization Tetanus Immunization: Up to Date - Past Medical History Past Medical History: No Previous - Cardiac Hx Cardiac Disorders: Yes Hx Hypertension: Yes - Pulmonary Hx Respiratory Disorders: No - Neurological Hx Neurological Disorder: No - HEENT Hx HEENT Disorder: No - Renal Hx Renal Disorder: No - Endocrine/Metabolic Hx Endocrine Disorders: No - Hematological/Oncological Hx Blood Disorders: No - Integumentary Hx Dermatological Disorder: No - Musculoskeletal/Rheumatological Hx Musculoskeletal Disorders: Yes Hx Back Pain: Yes Hx Herniated Disk: Yes (neck /lower back) - Gastrointestinal Hx Gastrointestinal Disorders: No - Genitourinary/Gynecological Hx Genitourinary Disorders: No Other/Comment: cyst left kidney - Psychiatric Hx Psychophysiologic Disorder: Yes Hx Anxiety: Yes Hx Depression: Yes Hx Schizophrenia: Yes Hx Substance Use: Yes (medical marijuana) - Past Surgical History Past Surgical History: No Previous - Surgical History Other/Comment: umbilical hernia repair - Anesthesia Hx Anesthesia: Yes Hx Anesthesia Reactions: No Hx Malignant Hyperthermia: No - Suicidal Assessment Feels Threatened In Home Enviroment: No Family/Social History - Physician Review Nursing Documentation Reviewed: Yes Family/Social History: No Known Family HX Smoking Status: Light Smoker < 10 Cigarettes Daily Hx Alcohol Use: No (DENIES) Hx Substance Use: Yes (medical marijuana) Substance used: marijuana Hx Substance Use Treatment: No Allergies/Home Meds Allergies/Adverse Reactions: Allergies No Known Allergies Allergy (Verified 09/14/18 20:02) Home Medications: Home Meds Medication Instructions Recorded Confirmed oxyCODONE [oxyCODONE Immediate 30 mg PO TID 08/03/17 03/25/18 Release Tab] Review of Systems - Physician Review All systems were reviewed & negative as marked: Yes - Review of Systems Constitutional: absent: Fevers Respiratory: absent: SOB, Cough Cardiovascular: absent: Chest Pain, GOSS Gastrointestinal: absent: Abdominal Pain, Stool Changes, Diarrhea, Nausea, Vomiting Genitourinary Male: absent: Urinary Output Changes Musculoskeletal: absent: Back Pain, Neck Pain Neurological: absent: Headache Physical Exam Vital Signs Reviewed: Yes Vital Signs Temp Pulse BP Pulse Ox 04/23/19 01:40 98.2 F 75 132/75 99 Temperature: Afebrile Blood Pressure: Normal Pulse: Regular Respiratory Rate: Normal Appearance: Positive for: Well-Appearing, Non-Toxic, Comfortable Pain Distress: None Mental Status: Positive for: Alert and Oriented X 3 - Systems Exam Head: Present: Atraumatic, Normocephalic Pupils: Present: PERRL Extroacular Muscles: Present: EOMI Conjunctiva: Present: Normal Mouth: Present: Moist Mucous Membranes Neck: Present: Normal Range of Motion Respiratory/Chest: Present: Clear to Auscultation, Good Air Exchange. No: Respiratory Distress, Accessory Muscle Use Cardiovascular: Present: Regular Rate and Rhythm, Normal S1, S2. No: Murmurs Abdomen: No: Tenderness, Distention, Peritoneal Signs Back: Present: Normal Inspection Upper Extremity: Present: Normal Inspection. No: Cyanosis, Edema Lower Extremity: Present: Normal Inspection. No: Edema Neurological: Present: GCS=15, CN II-XII Intact, Speech Normal Skin: Present: Warm, Dry, Normal Color. No: Rashes Psychiatric: Present: Alert, Oriented x 3, Normal Insight, Normal Concentration Medical Decision Making ED Course and Treatment: 04/23/19 02:13 Impression: A 48 year old male presents to the emergency department with a complaint of chronic vertigo and occasional tightness to the antecubital area of his left forearm. Plan: -- Reassess and disposition Prior Visits: Notes and results from previous visits were reviewed. Progress Notes: 04/23/19 03:28 On re-evaluation, patient feels better and is in no acute distress. I have discussed the results and plan with the patient, who expresses understanding. Patient in agreement with plan to be discharged home. Patient is stable for discharge. Patient was instructed to follow up with physician or return if symptoms worsen or new concerning symptoms arise. - Scribe Statement The provider has reviewed the documentation as recorded by the Mabelibe Rachel Osuna Provider Scribe Attestation: All medical record entries made by the Scribe were at my direction and personally dictated by me. I have reviewed the chart and agree that the record accurately reflects my personal performance of the history, physical exam, medical decision making, and the department course for this patient. I have also personally directed, reviewed, and agree with the discharge instructions and disposition. Disposition/Present on Arrival - Present on Arrival Any Indicators Present on Arrival: No History of DVT/PE: No History of Uncontrolled Diabetes: No Urinary Catheter: No History of Decub. Ulcer: No History Surgical Site Infection Following: None - Disposition Have Diagnosis and Disposition been Completed?: Yes Diagnosis: Chronic vertigo, Muscle spasm Disposition: HOME/ ROUTINE Disposition Time: :19 Patient Plan: Discharge Patient Problems: Current Active Problems Problem Status Onset Chronic vertigo Acute Muscle spasm Acute Condition: GOOD Discharge Instructions (ExitCare): Vertigo (a Type of Dizziness) (DC), Muscle Spasms (DC) Additional Instructions: Take meds as prescribed/follow up with the neurologist this week Prescriptions: Cyclobenzaprine [Cyclobenzaprine HCl] 10 mg PO TID PRN #15 tab PRN Reason: Muscle Spasm Meclizine [Meclizine*] 25 mg PO Q6 PRN #16 tab PRN Reason: vertigo Referrals: Joyce Mark MD [Staff Provider] - Follow up with primary Forms: [employer] (Sen[place]alese)
== END 2019-04-23 03:50 | disposition home or self-care (01) ==
LOC: ED 01:18
DX: R42 Dizziness and giddiness (principal); M62.838 Other muscle spasm